=== PATIENT | female | born 1935 | race Caucasian/White ===

== ENCOUNTER 2018-03-20 10:40 | Inpatient (IN) ==
--- NOTE | 2018-03-20 10:55 | Emergency Department Note ---
Disposition Clinical Impression: Altered mental status, UTI (urinary tract infection) Disposition: Admitted As Inpatient Condition: Fair Time of Disposition: 12:40 General Adult HPI - General Stated complaint: AMS, fever Time Seen by Provider: 03/20/18 10:43 Nursing Notes Reviewed: Yes Vital Signs Reviewed: Yes - History of Present Illness HPI Narrative: Ms. Esquivel is a very pleasant 81-year-old female with a past no history of hypertension, hyperlipidemia, anemia, hiatal hernia and non-oxygen dependent COPD who presents to the [facility] emergency department with chief complaint of altered mental status. Patient was seen on Wednesday by Dr. Del Cid who performed an upper endoscopy after she was found to have black tarry stools. Of note, there was noted to have a large hiatal hernia. No other acute process. In addition patient does have a history of upper GI bleed roughly 2 and half years ago. Patient is not on any blood thinners at this time. Family is present at bedside and reported that roughly one or 2 days after this procedure she started becoming progressively confused. Patient reports that starting Wednesday or she started having lower abdominal pain that was intermittent in nature as well as some mild diarrhea. However, today she reports complete resolution of her abdominal pain. Family reports that the last 2 days she has had an elevated fever 101-102. She has been taking Tylenol for this complaint. No recent sick contacts. She denies any other systemic symptoms such as chest pain, shortness of breath, palpitations, dysuria or gross to nocturia. She denies any current melena or hematochezia. No other complaint at this time. - Related Data Home Medications Medication Instructions Recorded Confirmed Cyclobenzaprine [Flexeril] 10 mg PO DAILY 04/01/16 03/15/18 Esomeprazole Magnesium [Nexium] 40 mg PO DAILY PRN 04/01/16 03/15/18 Famotidine [Pepcid] 20 mg PO DAILY 04/01/16 03/15/18 Furosemide [Lasix] 20 mg PO DAILY PRN 04/01/16 03/15/18 Gabapentin [Neurontin] 300 mg PO HS 04/01/16 03/15/18 HYDROcodone/Acet 5/325 mg [[place] 1 tab PO TID PRN 04/01/16 03/15/18 5-325 mg] Metoprolol Succinate 50 mg PO DAILY 04/01/16 03/15/18 Sertraline [Zoloft] 100 mg PO DAILY 04/01/16 03/15/18 Sucralfate [Carafate] 1 gm PO BID 04/01/16 03/15/18 Albuterol Neb [Proventil Neb] 3 ml IH Q4HR 03/15/18 03/15/18 Albuterol Sulfate [Proair Hfa] 2 puff IH Q4HR 03/15/18 03/15/18 Ferrous Sulfate [Ferrous Sulfate] 325 mg PO TID 03/15/18 03/15/18 Fluticasone/Salmeterol [Advair 1 puff IH DAILY 03/15/18 03/15/18 500-50 Diskus] Levothyroxine Sodium 50 mcg PO DAILY 03/15/18 03/15/18 [Levothyroxine Sodium] Previous Rx's Medication Instructions Recorded Meclizine [Antivert] 25 mg PO TID PRN #15 tablet 05/03/17 Allergies Allergy/AdvReac Type Severity Reaction Status Date / Time sulfamethoxazole Allergy Hives Verified 03/20/18 12:10 [From Bactrim] trimethoprim [From Bactrim] Allergy Hives Verified 03/20/18 12:10 Review of Systems: As Per HPI Past Medical History - Past Medical History Medical history: Reports: COPD, coronary artery disease, GERD, GI bleed, hyperlipidemia, hypertension, osteoporosis, thyroid disease, TIA Surgical history: Reports: appendectomy, cataract, cholecystectomy, hysterectomy , orthopedic, other Psychiatric history: Reports: depression SANDSTONE SPLITTER history: Reports: no SANDSTONE SPLITTER history - Social History Smoking Status: Never smoker Smokeless Tobacco Status: No Alcohol use: Reports: none Drug use: Reports: none Physical Exam CONSTITUTIONAL: Alert and conversant, oreinted to place, person. Not able to relate the year. Knows the president. HEAD: Normocephalic; atraumatic. EYES: EOMI, no scleral icterus, no drainage, no conjunctival injection Oropharynx: pink/moist RESP: NRD without use of accessory musculature, CTA b/l with no wheezes/rales/ rhonchi CARD: Regular rhythm, without murmurs, rubs, or gallop ABD: grossly normal, soft, non-tender, no guarding/distention/rigidity SKIN: normal appearance, no pallor/diaphoresis,mottling,jaundice,cyanosis EXT: DP/Rad pulses 2+ and symmetrical; no lateralizing edema; no other lesions seen PSYCH: appropriate mood/affect Course Course Narrative: Patient was seen and examined at bedside. Vital signs reviewed and showed temperature of 101.1 followed by 99.1. Elevated heart rate of 106. SIRS criteria was met. Physical examination demonstrates a pleasantly confused individual that is oriented to her name and place but was unable to currently state that current year and president., States that there is no history of this confusion previously. Patient is ambulatory at home. Abdominal examination was benign and the rest of the physical examination was unremarkable. Stool Hemoccult was negative. We will begin workup with urinalysis, CBC, CMP, chest x-ray, CT of the head, twelve-lead EKG. Will obtain IV access and blood cultures. Patient will be given 2 L IV fluid as well as IV antibiotics with Zosyn and vancomycin. Patient appears comfortable and nontoxic appearing at this time. She is hemodynamically stable. Disposition pending. 1220: Patient was found to be positive for UTI. CBC and CMP was unremarkable. Chest x-ray and CT of the head were unremarkable. The lead EKG shows no acute findings. Given this patient's altered mental status and UTI would recommend hospital admission for further treatment and evaluation. Hospitalist will be paged. 1255: Spoke with hospitalist, Dr. Bland who accepted patient for UTI and altered mental status. No further recognitions for hospital team. This disposition and plan were discussed with patient and family understand and agree. All further questions and concerns were addressed. Vital Signs Temperature 99.1 F 03/20/18 10:53 Pulse Rate 107 03/20/18 10:53 Respiratory Rate 18 03/20/18 10:53 Blood Pressure 155/66 03/20/18 10:53 O2 Sat by Pulse Oximetry 90 03/20/18 10:53 Temperature 99.4 F 03/20/18 12:49 Pulse Rate 84 03/20/18 12:49 Respiratory Rate 18 03/20/18 12:49 Blood Pressure 116/81 03/20/18 12:49 O2 Sat by Pulse Oximetry 96 03/20/18 12:49 Oxygen Delivery Oxygen Delivery Room Air Medical Decision Making - Medical Records Medical records reviewed: Yes I reviewed the patient's medical records. - Lab Data Lab results reviewed: Yes I reviewed the patient's lab results. Result diagrams: 03/20/18 11:39 03/20/18 11:39 Lab Results 03/20/18 03/20/18 03/20/18 Range/Units 11:19 11:39 11:39 WBC 7.8 (4.3-11.1) K/mcL RBC 4.93 (3.82-4.97) M/mcL Hgb 12.6 (11.5-15.4) g/dL Hct 41.3 (35.3-44.9) % MCV 83.8 (83.0-100.0) fL MCH 25.6 L (28.0-33.3) pg MCHC 30.5 L (31.6-35.5) g/dL RDW 21.7 H (11.5-14.5) % Plt Count 214 (140-400) K/mcL MPV 9.6 (9.4-12.4) fL Immature Gran % 0.3 (0-4) % Seg Neutrophils % 91.5 % Lymphocytes % 3.0 % Monocytes % 4.6 % Eosinophils % 0.1 % Basophils % 0.5 % Neutrophils # 7.1 (1.6-8.9) K/mcL Lymphocytes # 0.2 L (0.6-4.6) K/mcL Monocytes # 0.4 (0.0-1.3) K/mcL Eosinophils # 0.0 (0.0-0.6) K/mcL Basophils # 0.0 (0.0-0.2) K/mcL Platelet Estimate Normal (Normal) PT 12.5 H (9.4-12.1) Seconds INR 1.2 APTT 23.2 L (26.0-36.0) Seconds Sodium (136-145) mEq/L Potassium (3.5-5.1) mEq/L Chloride (98-107) mEq/L Carbon Dioxide (23-29) mEq/L BUN (8-23) mg/dL Creatinine (0.60-1.20) mg/dL Est GFR ( Amer) (> 60) Est GFR (Non-Af Amer) (> 60) BUN/Creatinine Ratio (6-26) Glucose (70-105) mg/dL Calculated Osmolality (280-300) Lactic Acid (0.5-2.2) mmol/L Calcium (8.6-10.3) mg/dL Total Bilirubin (0.3-1.0) mg/dL Direct Bilirubin (0.0-0.2) mg/dL Indirect Bilirubin (0.0-1.2) mg/dL AST (13-39) Units/L ALT (7-52) Units/L Alkaline Phosphatase (34-104) Units/L Ammonia (16-53) mcmol/L Troponin I (< 0.04) ng/mL Serum Total Protein (6.4-8.9) g/dL Albumin (3.5-5.7) g/dL Globulin (2.4-3.5) g/dL Albumin/Globulin Ratio (1.1-2.2) Urine Color Yellow (Yellow) Urine Clarity Clear (Clear) Urine pH 5.5 (5.0-8.0) pH Units Ur Specific [place] 1.015 (1.010-1.025) Urine Protein 100 H (Neg-Trace) mg/dL Urine Glucose (UA) Normal (Normal) mg/dL Urine Ketones Negative (Negative) mg/dL Urine Blood Moderate H (Negative) Urine Nitrite Positive A (Negative) Urine Bilirubin Negative (Negative) Urine Urobilinogen Normal (Normal) mg/dL Ur Leukocyte Esterase Small H (Negative) Urine Microscopic RBC 0-3 (0-3) per hpf Urine Microscopic WBC 15-30 H (0-3) per hpf Ur Squamous Epith Cells Few (None-Few) per lpf [place] Biurate Crystals Present Urine Bacteria Many H (None-Few) per hpf Ur Culture Indicated? YES A (NO) 03/20/18 03/20/18 03/20/18 Range/Units 11:39 11:39 11:44 WBC (4.3-11.1) K/mcL RBC (3.82-4.97) M/mcL Hgb (11.5-15.4) g/dL Hct (35.3-44.9) % MCV (83.0-100.0) fL MCH (28.0-33.3) pg MCHC (31.6-35.5) g/dL RDW (11.5-14.5) % Plt Count (140-400) K/mcL MPV (9.4-12.4) fL Immature Gran % (0-4) % Seg Neutrophils % % Lymphocytes % % Monocytes % % Eosinophils % % Basophils % % Neutrophils # (1.6-8.9) K/mcL Lymphocytes # (0.6-4.6) K/mcL Monocytes # (0.0-1.3) K/mcL Eosinophils # (0.0-0.6) K/mcL Basophils # (0.0-0.2) K/mcL Platelet Estimate (Normal) PT (9.4-12.1) Seconds INR APTT (26.0-36.0) Seconds Sodium 134 L (136-145) mEq/L Potassium 4.3 (3.5-5.1) mEq/L Chloride 99 (98-107) mEq/L Carbon Dioxide 27 (23-29) mEq/L BUN 13 (8-23) mg/dL Creatinine 1.13 (0.60-1.20) mg/dL Est GFR ( Amer) 56 L (> 60) Est GFR (Non-Af Amer) 46 L (> 60) BUN/Creatinine Ratio 12 (6-26) Glucose 111 H (70-105) mg/dL Calculated Osmolality 279 L (280-300) Lactic Acid 0.9 (0.5-2.2) mmol/L Calcium 9.4 (8.6-10.3) mg/dL Total Bilirubin 0.9 (0.3-1.0) mg/dL Direct Bilirubin 0.3 H (0.0-0.2) mg/dL Indirect Bilirubin 0.6 (0.0-1.2) mg/dL AST 17 (13-39) Units/L ALT 9 (7-52) Units/L Alkaline Phosphatase 69 (34-104) Units/L Ammonia 26 (16-53) mcmol/L Troponin I < 0.03 (< 0.04) ng/mL Serum Total Protein 7.4 (6.4-8.9) g/dL Albumin 4.2 (3.5-5.7) g/dL Globulin 3.2 (2.4-3.5) g/dL Albumin/Globulin Ratio 1.3 (1.1-2.2) Urine Color (Yellow) Urine Clarity (Clear) Urine pH (5.0-8.0) pH Units Ur Specific [place] (1.010-1.025) Urine Protein (Neg-Trace) mg/dL Urine Glucose (UA) (Normal) mg/dL Urine Ketones (Negative) mg/dL Urine Blood (Negative) Urine Nitrite (Negative) Urine Bilirubin (Negative) Urine Urobilinogen (Normal) mg/dL Ur Leukocyte Esterase (Negative) Urine Microscopic RBC (0-3) per hpf Urine Microscopic WBC (0-3) per hpf Ur Squamous Epith Cells (None-Few) per lpf [place] Biurate Crystals Urine Bacteria (None-Few) per hpf Ur Culture Indicated? (NO) - Radiology Data Radiology results reviewed: Yes I reviewed the patient's radiology results. Chest X-Ray 03/20/18 10:56 IMPRESSION: No acute abnormality. D/ / 03/20/2018 11:50:52 Carlos Sanchez MD / [place] Interpreting Provider: Carlos Sanchez MD Head CT 03/20/18 10:56 IMPRESSION: No acute intracranial abnormality. D/ / 03/20/2018 12:06:48 Jeb Medina MD / [place] Interpreting Provider: Jeb Medina MD - EKG Data EKG #1 EKG attestation: Yes I reviewed and interpreted this EKG. EKG results narrative: Heart rate 102, IA 140, QRS 74 and QTC 368 consistent with sinus tachycardia. There are no new ischemic changes. This was compared to previous was performed on 08/10/2017
[2018-03-20] MEDS ORDERED: Piperacillin/Tazobactam 3.375 GM in 0.9 % Sodium Chloride Mini Bag 100 ML IVPB ONE (11:04)
[2018-03-20 11:36] LABS: Bilirubin,Urine Negative (Negative); Blood,Urine Moderate (Negative); Clarity,Urine Clear (Clear); Color,Urine Yellow (Yellow); Glucose,Urine (UA) Normal (Normal); Ketones,Urine Negative (Negative); Leukocyte Esterase,Urine Small (Negative); Nitrite,Urine Positive (Negative); PH,Urine 5.5 pH Units (5.0-8.0); Protein,Urine 100 mg/dL (Neg-Trace); Specific Gravity,Urine 1.015 (1.010-1.025); Urobilinogen,Urine Normal (Normal)
[2018-03-20] MEDS: 0.9 % Sodium Chloride 1,000 ML IVC SCH ×3 (11:47→17:02)
[2018-03-20 11:49] LABS: Bacteria,Urine Many per hpf (None-Few); RBC,Urine 0-3 per hpf (0-3); Squamous Epithelial Cell,Urine Few per lpf (None-Few); WBC,Urine 15-30 per hpf (0-3)
[2018-03-20 11:52] LABS: Basophils % 0.5 %; Eosinophils % 0.1 %; Hematocrit 41.3 % (35.3-44.9); Hemoglobin 12.6 g/dL (11.5-15.4); Immature Granulocytes % 0.3 % (0-4); Lymphocytes # 0.2 K/mcL (0.6-4.6); Mean Corpuscular HGB Conc 30.5 g/dL (31.6-35.5); Mean Corpuscular Hemoglobin 25.6 pg (28.0-33.3); Mean Corpuscular Volume 83.8 fL (83.0-100.0); Mean Platelet Volume 9.6 fL (9.4-12.4); Monocytes # 0.4 K/mcL (0.0-1.3); Monocytes % 4.6 %; Neutrophils # 7.1 K/mcL (1.6-8.9); Platelet Count 214 K/mcL (140-400); Red Blood Count 4.93 M/mcL (3.82-4.97); Red Cell Distribution Width 21.7 % (11.5-14.5); Segmented Neutrophils % 91.5 %
[2018-03-20 11:58] LABS: INR 1.2; Prothrombin Time 12.5 Seconds (9.4-12.1)
[2018-03-20 12:00] LABS: Activated Partial Thrombo Time 23.2 Seconds (26.0-36.0)
--- NOTE | 2018-03-20 12:00 | Emergency Department Note ---
Disposition Clinical Impression: Altered mental status, UTI (urinary tract infection) Disposition: Admitted As Inpatient Condition: Fair Referrals: Mihai Medrano MD [Primary Care Provider] - Time of Disposition: 12:58 General Adult HPI - General Chief complaint: ED Altered Mental Status Stated complaint: AMS, fever Time Seen by Provider: 03/20/18 10:43 Source: patient, family Limitations: altered mental status - History of Present Illness Pain Scale: 0 - Related Data Home Medications Medication Instructions Recorded Confirmed Cyclobenzaprine [Flexeril] 10 mg PO DAILY 04/01/16 03/15/18 Esomeprazole Magnesium [Nexium] 40 mg PO DAILY PRN 04/01/16 03/15/18 Famotidine [Pepcid] 20 mg PO DAILY 04/01/16 03/15/18 Furosemide [Lasix] 20 mg PO DAILY PRN 04/01/16 03/15/18 Gabapentin [Neurontin] 300 mg PO HS 04/01/16 03/15/18 HYDROcodone/Acet 5/325 mg [[place] 1 tab PO TID PRN 04/01/16 03/15/18 5-325 mg] Metoprolol Succinate 50 mg PO DAILY 04/01/16 03/15/18 Sertraline [Zoloft] 100 mg PO DAILY 04/01/16 03/15/18 Sucralfate [Carafate] 1 gm PO BID 04/01/16 03/15/18 Albuterol Neb [Proventil Neb] 3 ml IH Q4HR 03/15/18 03/15/18 Albuterol Sulfate [Proair Hfa] 2 puff IH Q4HR 03/15/18 03/15/18 Ferrous Sulfate [Ferrous Sulfate] 325 mg PO TID 03/15/18 03/15/18 Fluticasone/Salmeterol [Advair 1 puff IH DAILY 03/15/18 03/15/18 500-50 Diskus] Levothyroxine Sodium 50 mcg PO DAILY 03/15/18 03/15/18 [Levothyroxine Sodium] Previous Rx's Medication Instructions Recorded Meclizine [Antivert] 25 mg PO TID PRN #15 tablet 05/03/17 Allergies Allergy/AdvReac Type Severity Reaction Status Date / Time sulfamethoxazole Allergy Hives Verified 03/20/18 12:10 [From Bactrim] trimethoprim [From Bactrim] Allergy Hives Verified 03/20/18 12:10 All systems ED: reviewed and negative except as stated. 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 SUPERVISOR history - Social History Smoking Status: Never smoker Smokeless Tobacco Status: No Alcohol use: Reports: none Drug use: Reports: none Physical Exam - General Limitations: altered mental status General appearance: alert, in no apparent distress Course Vital Signs Temperature 99.1 F 03/20/18 10:53 Pulse Rate 107 03/20/18 10:53 Respiratory Rate 18 03/20/18 10:53 Blood Pressure 155/66 03/20/18 10:53 O2 Sat by Pulse Oximetry 90 03/20/18 10:53 Temperature 99.1 F 03/20/18 11:18 Pulse Rate 107 03/20/18 10:53 Respiratory Rate 18 03/20/18 10:53 Blood Pressure 155/66 03/20/18 10:53 O2 Sat by Pulse Oximetry 90 03/20/18 10:53 Oxygen Delivery Oxygen Delivery Room Air Medical Decision Making - Lab Data Result diagrams: 03/20/18 11:39 03/20/18 11:39 Lab Results 03/20/18 03/20/18 03/20/18 Range/Units 11:19 11:39 11:39 WBC 7.8 (4.3-11.1) K/mcL RBC 4.93 (3.82-4.97) M/mcL Hgb 12.6 (11.5-15.4) g/dL Hct 41.3 (35.3-44.9) % MCV 83.8 (83.0-100.0) fL MCH 25.6 L (28.0-33.3) pg MCHC 30.5 L (31.6-35.5) g/dL RDW 21.7 H (11.5-14.5) % Plt Count 214 (140-400) K/mcL MPV 9.6 (9.4-12.4) fL Immature Gran % 0.3 (0-4) % Seg Neutrophils % 91.5 % Lymphocytes % 3.0 % Monocytes % 4.6 % Eosinophils % 0.1 % Basophils % 0.5 % Neutrophils # 7.1 (1.6-8.9) K/mcL Lymphocytes # 0.2 L (0.6-4.6) K/mcL Monocytes # 0.4 (0.0-1.3) K/mcL Eosinophils # 0.0 (0.0-0.6) K/mcL Basophils # 0.0 (0.0-0.2) K/mcL Platelet Estimate Normal (Normal) PT 12.5 H (9.4-12.1) Seconds INR 1.2 APTT 23.2 L (26.0-36.0) Seconds Sodium (136-145) mEq/L Potassium (3.5-5.1) mEq/L Chloride (98-107) mEq/L Carbon Dioxide (23-29) mEq/L BUN (8-23) mg/dL Creatinine (0.60-1.20) mg/dL Est GFR ( Amer) (> 60) Est GFR (Non-Af Amer) (> 60) BUN/Creatinine Ratio (6-26) Glucose (70-105) mg/dL Calculated Osmolality (280-300) Lactic Acid (0.5-2.2) mmol/L Calcium (8.6-10.3) mg/dL Total Bilirubin (0.3-1.0) mg/dL Direct Bilirubin (0.0-0.2) mg/dL Indirect Bilirubin (0.0-1.2) mg/dL AST (13-39) Units/L ALT (7-52) Units/L Alkaline Phosphatase (34-104) Units/L Ammonia (16-53) mcmol/L Troponin I (< 0.04) ng/mL Serum Total Protein (6.4-8.9) g/dL Albumin (3.5-5.7) g/dL Globulin (2.4-3.5) g/dL Albumin/Globulin Ratio (1.1-2.2) Urine Color Yellow (Yellow) Urine Clarity Clear (Clear) Urine pH 5.5 (5.0-8.0) pH Units Ur Specific [place] 1.015 (1.010-1.025) Urine Protein 100 H (Neg-Trace) mg/dL Urine Glucose (UA) Normal (Normal) mg/dL Urine Ketones Negative (Negative) mg/dL Urine Blood Moderate H (Negative) Urine Nitrite Positive A (Negative) Urine Bilirubin Negative (Negative) Urine Urobilinogen Normal (Normal) mg/dL Ur Leukocyte Esterase Small H (Negative) Urine Microscopic RBC 0-3 (0-3) per hpf Urine Microscopic WBC 15-30 H (0-3) per hpf Ur Squamous Epith Cells Few (None-Few) per lpf [place] Biurate Crystals Present Urine Bacteria Many H (None-Few) per hpf Ur Culture Indicated? YES A (NO) 03/20/18 03/20/18 03/20/18 Range/Units 11:39 11:39 11:44 WBC (4.3-11.1) K/mcL RBC (3.82-4.97) M/mcL Hgb (11.5-15.4) g/dL Hct (35.3-44.9) % MCV (83.0-100.0) fL MCH (28.0-33.3) pg MCHC (31.6-35.5) g/dL RDW (11.5-14.5) % Plt Count (140-400) K/mcL MPV (9.4-12.4) fL Immature Gran % (0-4) % Seg Neutrophils % % Lymphocytes % % Monocytes % % Eosinophils % % Basophils % % Neutrophils # (1.6-8.9) K/mcL Lymphocytes # (0.6-4.6) K/mcL Monocytes # (0.0-1.3) K/mcL Eosinophils # (0.0-0.6) K/mcL Basophils # (0.0-0.2) K/mcL Platelet Estimate (Normal) PT (9.4-12.1) Seconds INR APTT (26.0-36.0) Seconds Sodium 134 L (136-145) mEq/L Potassium 4.3 (3.5-5.1) mEq/L Chloride 99 (98-107) mEq/L Carbon Dioxide 27 (23-29) mEq/L BUN 13 (8-23) mg/dL Creatinine 1.13 (0.60-1.20) mg/dL Est GFR ( Amer) 56 L (> 60) Est GFR (Non-Af Amer) 46 L (> 60) BUN/Creatinine Ratio 12 (6-26) Glucose 111 H (70-105) mg/dL Calculated Osmolality 279 L (280-300) Lactic Acid 0.9 (0.5-2.2) mmol/L Calcium 9.4 (8.6-10.3) mg/dL Total Bilirubin 0.9 (0.3-1.0) mg/dL Direct Bilirubin 0.3 H (0.0-0.2) mg/dL Indirect Bilirubin 0.6 (0.0-1.2) mg/dL AST 17 (13-39) Units/L ALT 9 (7-52) Units/L Alkaline Phosphatase 69 (34-104) Units/L Ammonia 26 (16-53) mcmol/L Troponin I < 0.03 (< 0.04) ng/mL Serum Total Protein 7.4 (6.4-8.9) g/dL Albumin 4.2 (3.5-5.7) g/dL Globulin 3.2 (2.4-3.5) g/dL Albumin/Globulin Ratio 1.3 (1.1-2.2) Urine Color (Yellow) Urine Clarity (Clear) Urine pH (5.0-8.0) pH Units Ur Specific [place] (1.010-1.025) Urine Protein (Neg-Trace) mg/dL Urine Glucose (UA) (Normal) mg/dL Urine Ketones (Negative) mg/dL Urine Blood (Negative) Urine Nitrite (Negative) Urine Bilirubin (Negative) Urine Urobilinogen (Normal) mg/dL Ur Leukocyte Esterase (Negative) Urine Microscopic RBC (0-3) per hpf Urine Microscopic WBC (0-3) per hpf Ur Squamous Epith Cells (None-Few) per lpf [place] Biurate Crystals Urine Bacteria (None-Few) per hpf Ur Culture Indicated? (NO) Attestation Statement - Attestation Attestation: I, Cristian Love DO, examined this patient [id number] and my medical decision-making was reviewed with Juan Limon PGY-1, Resident Physician. I agree with the documented findings, disposition and treatment plan as described except to the extent set forth below. Please see my progress notes for details. 83-year-old female presents to emergency room with complaint of generalized malaise and weakness. Patient had an upper endoscopy completed with. Since then she has had persistently worsening symptoms of weakness nausea and intermittent vomiting. Patient denies any trauma or illness. Patient has no other new medications or medical illnesses. She has not relatively controversial has not fallen or injured herself. Vital signs on presentation were concerning for possible temperature. Her heart rate was normal her blood pressure is normal. Patient is awake and answering questions. Family says that she is acting appropriately but she just has not been able to take care of herself as well as she typically did in the past. Patient is concerning for possible infectious etiology considering she has had recent manipulation as well as the generalized malaise patient will be worked up for septic-like presentation including chest x-ray EKG lab screening CBC chemistry troponin as well as blood cultures and urinalysis. Patient's abdomen is benign at this time. CT that also be ordered secondary to intermittent confusion. Patient otherwise clinically stable we will continue monitor his fluid resuscitation started. Clinically she does not meet any acute signs of sepsis at this point consider do not have a focal source. Physical exam is otherwise unremarkable. Lungs are clear heart is regular abdomen is soft. See detailed documentation of the physical exam, medical intervention, medical decision-making and disposition in the resident physician's note. No critical care by the patient' s treatment course at this time. Antibiotics are ordered at this point. 1225 Patient found to have urinary tract infection. CT imaging of the head is unremarkable. Chest x-ray stable. Patient will be started on Vanco and Zosyn prior to you the results of the urinalysis. There is still concerned because the cough and discomfort for other pulmonary related etiology. Patient is clinically stable. She will be admitted for the confusion and urinary tract infection at this point. Otherwise she has no acute abnormalities. Patient was discussed with the hospitalist. At no other recommendations this time. Antibiotic regimen was restarted. They will de-escalate antibiotic regimen at this point. Patient is otherwise clinically stable no other acute pathology noted
[2018-03-20 12:26] LABS: Alanine Aminotransferase 9 Units/L (7-52); Albumin 4.2 g/dL (3.5-5.7); Albumin/Globulin Ratio 1.3 (1.1-2.2); Alkaline Phosphatase 69 Units/L (34-104); Aspartate Amino Transferase 17 Units/L (13-39); BUN/Creatinine Ratio 12 (6-26); Bilirubin,Direct 0.3 mg/dL (0.0-0.2); Bilirubin,Indirect 0.6 mg/dL (0.0-1.2); Bilirubin,Total 0.9 mg/dL (0.3-1.0); Blood Urea Nitrogen 13 mg/dL (8-23); Calcium 9.4 mg/dL (8.6-10.3); Carbon Dioxide 27 mEq/L (23-29); Chloride 99 mEq/L (98-107); Globulin 3.2 g/dL (2.4-3.5); Glucose 111 mg/dL (70-105); Osmolality,Calculated 279 (280-300); Potassium 4.3 mEq/L (3.5-5.1); Sodium 134 mEq/L (136-145); Total Protein 7.4 g/dL (6.4-8.9); Troponin I < 0.03 ng/mL (< 0.04); eGFR For African Americans 56 (> 60); eGFR For Non-African Americans 46 (> 60)
[2018-03-20 12:28] LABS: Platelet Estimate Normal (Normal)
[2018-03-20] MEDS ORDERED: Naloxone 0.4 MG/ML INJ IVP PRN (14:13)
[2018-03-20] MEDS ORDERED: *HR* HYDROcodone/Acet 5/325 mg TABLET PO PRN (14:19)
[2018-03-20] MEDS ORDERED: Furosemide 20 MG TABLET PO PRN (14:19)
--- NOTE | 2018-03-20 14:39 | Internal Med History&Physical ---
<AndrewshelliechloeViktor duque - Last Filed: 03/20/18 15:11> Date of Encounter: 03/20/18 Time of Encounter: 13:45 Internal Medicine - H&P: HPI Chief complaint: AMS, Fever, Abdominal pain Admitted From: Emergency Dept Plans for Post Hospital Care: Home History of present illness: Ms. Esquivel is a 83 year old female w/PMH of COPD, CAD, GERD, GI bleed, HTN, osteoporosis, thyroid disease, and TIA approximately 10 years ago presents from the ED with chief complaint of fever, abdominal pain, and altered mental status. Patient reports she had a fever 102.5F yesterday with nausea, vomiting , diarrhea, abdominal pain, and right flank pain. Pt. also reports hx of GI bleed w/upper endoscopy done on Wednesday after report of melanotic stools. Not on anticoagulation. Pts. family reports she is usually hypotensive but has been hypertensive over the past month. Pt. reports SOB, cough, and difficulty w/ ambulation but denies chills, changes in vision, headache, chest pain, palpitations, unusual bleeding, constipation, dizziness, lightheadedness, pre- syncope, or syncope. Past Med Surg Social Fam HX - Past Medical History Source: patient, old records reviewed, obtained from family Medical history: COPD, coronary artery disease, GERD, GI bleed, hyperlipidemia, hypertension, osteoporosis, thyroid disease, TIA Psychiatric history: depression - Past Surgical History Surgical History: appendectomy, cataract, cholecystectomy, hysterectomy, orthopedic, other - Social History Smoking Status: Former smoker Packs per day: 2.5 PPD - Reports quitting 40 years ago Smokeless Tobacco Status: No Alcohol use: none Drug use: none Current living situation: Assisted Living Activity Level: Uses cane/walker Recent Out of Country Travel Within the Last 8 Weeks: No Exposure or Possible Exposure to Illness During Travel: No - Family History Father History Unknown: Yes Race: Family Member Ethnicity: Non- Living Status: Age at : 65 Cause of : PA Hx Family Cardiac Disorders: Yes (PA) Hx Family Endocrine Disorder: Yes (DM) Mother Race: Family Member Ethnicity: Non- Living Status: Age at : 72 Cause of : Brain/Lung cancer Hx Family Cancer: Yes (Lung/Brain) Brother Race: Family Member Ethnicity: Non- Living Status: Age at : 53 Cause of : CHF Hx Family Cardiac Disorders: Yes (CHF) Sister Race: Family Member Ethnicity: Non- Living Status: Age at : 73 Cause of : PA Hx Family Cardiac Disorders: Yes (PA, CVA) Internal Medicine - H&P: Meds Cyclobenzaprine [Flexeril] 10 mg PO DAILY 04/01/16 [History] Esomeprazole Magnesium [Nexium] 40 mg PO DAILY PRN 04/01/16 [History] Famotidine [Pepcid] 20 mg PO DAILY 04/01/16 [History] Furosemide [Lasix] 20 mg PO DAILY PRN 04/01/16 [History] Gabapentin [Neurontin] 300 mg PO HS 04/01/16 [History] HYDROcodone/Acet 5/325 mg [[place] 5-325 mg] 1 tab PO TID PRN 04/01/16 [History] Metoprolol Succinate 50 mg PO DAILY 04/01/16 [History] Sertraline [Zoloft] 100 mg PO DAILY 04/01/16 [History] Sucralfate [Carafate] 1 gm PO BID 04/01/16 [History] Meclizine [Antivert] 25 mg PO TID PRN #15 tablet 05/03/17 [Rx] Albuterol Neb [Proventil Neb] 3 ml IH Q4HR 03/15/18 [History] Albuterol Sulfate [Proair Hfa] 2 puff IH Q4HR 03/15/18 [History] Ferrous Sulfate [Ferrous Sulfate] 325 mg PO TID 03/15/18 [History] Fluticasone/Salmeterol [Advair 500-50 Diskus] 1 puff IH DAILY 03/15/18 [History] Levothyroxine Sodium [Levothyroxine Sodium] 50 mcg PO DAILY 03/15/18 [History] 3 Allergy/AdvReac Type Severity Reaction Status Date / Time sulfamethoxazole Allergy Hives Verified 03/20/18 12:10 [From Bactrim] trimethoprim [From Bactrim] Allergy Hives Verified 03/20/18 12:10 All Systems PM: A 10-system review of systems was performed and is negative for pertinent findings except as documented above in the HPI. - Constitutional Constitutional: as per HPI, fever(s) (102.5F yesterday), weakness, no chills, no night sweats - EENT Eyes: no change in vision, no discharge, no pain, no photophobia Ears: no ear discharge, no ear pain, no tinnitus Nose, mouth and throat: no dysphagia, no nasal discharge, no neck pain, no sore throat - Breasts Breasts: as per HPI - Cardiovascular Cardiovascular ROS IM: as per HPI, dyspnea, dyspnea on exertion, no chest pain, no diaphoresis, no lightheadedness, no palpitations, no syncope - Respiratory Respiratory: as per HPI, cough, dyspnea, dyspnea on exertion, no wheezing, no excessive phlegm production - Gastrointestinal Gastrointestinal: as per HPI, abdominal pain, diarrhea, melena (W/i past several weeks), nausea, vomiting, no hematemesis, no hematochezia - Genitourinary Genitourinary: as per HPI, flank pain (Right), no change in urinary stream, no dysuria, no hematuria Menstruation: as per HPI - Musculoskeletal Musculoskeletal ROS IM: no numbness, no tingling - Integumentary Integumentary IM: no rash, no unusual bruising - Neurological Neurological ROS: as per HPI, weakness, no confusion, no convulsions, no focal weakness, no numbness, no tingling, no tremor(s) - Psychiatric Psychiatric: as per HPI, depression - Endocrine Endocrine IM: as per HPI - Hematologic/Lymphatic Hematologic/Lymphatic: no easy bruising - Allergic/Immunologic Allergic/Immunologic: as per HPI - Constitutional Vitals: Temp Pulse Resp BP Pulse Ox 99.4 F 84 18 116/81 96 03/20/18 12:49 03/20/18 12:49 03/20/18 12:49 03/20/18 12:49 03/20/18 12:49 General appearance: Present: cooperative, A&O X 3, pleasant, no acute distress, answers questions appropriately - Head Head exam: Present: atraumatic, normocephalic - Eye Eye exam: Present: PERRL, conjuntiva pink, sclera anicteric Pupils: Present: PERRL - ENT ENT exam: Present: normal exam - Neck Neck exam general surgery: Present: supple, trachea midline. Absent: lymphadenopathy - Respiratory Respiratory exam: Present: CTAB. Absent: accessory muscle use, rales, rhonchi, wheezes - Cardiovascular Cardiovascular exam: Present: RRR, +S1, +S2. Absent: diastolic murmur, gallop, rubs, systolic murmur - GI/Abdominal GI/Abdominal exam: Present: normal bowel sounds, soft, no peritoneal signs. Absent: distended, tenderness - Rectal Rectal exam: Present: deferred - Additional comments: exam deferred. - Extremities Exam Extremities exam: Present: warm, radial pulses palpable and symmetrical. Absent : calf tenderness, cyanotic, pedal edema - Back Exam Back exam: Present: normal inspection - Neurological Exam Neurological exam: Present: CN II-XII intact, oriented X3, no focal deficits. Absent: pronater drift, facial droop, speech deficit - Psychiatric Psychiatric exam: Present: normal affect, normal mood - Skin Skin exam: Present: dry, intact Internal Med - H&P Results - Labs CBC & Chem 7: 03/20/18 11:39 03/20/18 11:39 - Diagnostic Studies Chest x-ray Additional comments: Impressions Chest X-Ray 03/20/18 10:56 IMPRESSION: No acute abnormality. D/ / 03/20/2018 11:50:52 Carlos Sanchez MD / [place] Interpreting Provider: Carlos Sanchez MD CT scan - head Additional comments: Impressions Head CT 03/20/18 10:56 IMPRESSION: No acute intracranial abnormality. D/ / 03/20/2018 12:06:48 Jeb Medina MD / [place] Interpreting Provider: Jeb Medina MD - Assessment and plan (1) UTI (urinary tract infection) Current Visit: Yes Status: Acute Assessment and plan: Acute UTI. UA today shows positive nitrates, leukocyte esterase, microscopic WBC 15-30, and many urine bacteria. Pt. and family report hx of UTI. Vancomycin and Zosyn administered in the ED. Will DC these and administer IVPB ceftriaxone 1000 mg daily for infection coverage. Monitor I&O and daily weight. Monitor patient for neurologic changes due to AMS. Patient does not currently meet sepsis criteria but will be monitored closely. Continuous cardiac telemetry. Patient uses O2 at night at home. Supplemental O2 with titration and SPO2 monitoring ordered. Patient discussed with Dr. Bland who agrees with plan of care. Pt. is high risk for further morbidity d/t AMS caused by UTI, weakness and risk for falls, N/V/D/F (>102F) over past week, ANNE, hx of GI bleed, and risk factors. Inpatient. Qualifiers: Urinary tract infection type: acute cystitis Hematuria presence: with hematuria Qualified Code(s): N30.01 - Acute cystitis with hematuria (2) Altered mental status Current Visit: Yes Status: Acute Assessment and plan: Acute AMS related to current UTI. Pt. to be monitored closely for neurologic changes. Falls/safety precautions, up with assist, bed rest w/bedside commode w/ assist only. Monitor pt. and f/u labs. Will order sitter if warranted. Qualifiers: Altered mental status type: disorientation Qualified Code(s): R41.0 - Disorientation, unspecified (3) ANNE (acute kidney injury) Current Visit: Yes Status: Acute Assessment and plan: ANNE most likely d/t reduced intake as a result of N/V/D. GFR 46 w/normal creatinine of 1.13 on admission. Pt. has hx of renal dysfunction in past. Received IV fluids in ED. Reports right flank pain. Sodium currently 134 on admission. Will monitor I&O, daily weight, and f/u labs for renal function and resolution of hyponatremia. Retroperitoneal US ordered to assess for renal calculi. (4) Nausea & vomiting Current Visit: Yes Status: Acute Assessment and plan: Acute N/V over the past several days. IVP Zofran 4 mg Q6HR PRN. Monitor I&O. Qualifiers: Vomiting type: unspecified Vomiting Intractability: non-intractable Qualified Code(s): R11.2 - Nausea with vomiting, unspecified (5) Weakness Current Visit: Yes Status: Acute Assessment and plan: Acute on chronic weakness exacerbated by current UTI. Falls/safety precautions, up with assist, bed rest w/bedside commode w/assist only. (6) HTN (hypertension) Current Visit: Yes Status: Chronic Assessment and plan: Hx of chronic HTN. Pt. and family report episodes of hypotension. Monitor pt. and VS. Hydralazine ordered if pt. becomes hypertensive between Metoprolol dosing w/parameters SBP >180 ad/or DBP >110. Qualifiers: Hypertension type: essential hypertension Qualified Code(s): I10 - Essential (primary) hypertension (7) GERD (gastroesophageal reflux disease) Current Visit: Yes Status: Chronic Assessment and plan: Hx of chronic GERD. IVP Zofran 4 mg Q6HR PRN for N/V. IVP Protonix 40 mg BID. Qualifiers: Esophagitis presence: esophagitis presence not specified Qualified Code(s) : K21.9 - Gastro-esophageal reflux disease without esophagitis (8) CAD (coronary artery disease) Current Visit: Yes Status: Chronic Assessment and plan: Hx of CAD. Continuous cardiac telemetry. Continue Metoprolol and monitor pt. for hypotension. Lipid panel in a.m. labs. Pt. denies any cardiac sx at this time. Qualifiers: Coronary Disease-Associated Artery/Lesion type: due to lipid rich plaque Qualified Code(s): I25.10 - Atherosclerotic heart disease of [place] coronary artery without angina pectoris; I25.83 - Coronary atherosclerosis due to lipid rich plaque; I25.83 - Coronary atherosclerosis due to lipid rich plaque; I25.83 - Coronary atherosclerosis due to lipid rich plaque (9) COPD (chronic obstructive pulmonary disease) Current Visit: Yes Status: Chronic Assessment and plan: Hx of COPD. Stable. DuoNebs Q6HR scheduled. Continue pts. inhalers. Supplemental O2 w/titration and SpO2 monitoring. Qualifiers: COPD type: chronic bronchitis Chronic bronchitis type: simple Qualified Code(s): J41.0 - Simple chronic bronchitis (10) Hypothyroid Current Visit: Yes Status: Chronic Assessment and plan: Hx of hypothyroidism. TSH and Free T4 ordered. Continue pts. Synthroid. Qualifiers: Hypothyroidism type: unspecified Qualified Code(s): E03.9 - Hypothyroidism , unspecified (11) History of GI bleed Current Visit: Yes Status: Chronic Assessment and plan: Hx of GI bleeding 2.5 years ago and report of melanotic stools that required upper endoscopy on Wednesday. Monitor pt. for signs of bleeding, H/H, and f/u labs. (12) DVT prophylaxis Current Visit: Yes Status: Acute Assessment and plan: Bilateral SCDs on LEs for DVT prophylaxis d/t hx of GI bleeds requiring recent upper endoscopy. Monitor pt. for signs of bleeding. - Time Spent With Patient Total time spent is greater than 50% in coordination of care (as documented) at patient's floor/unit and/or counseling patient: 25 - 35 minutes <Sherif Bland - Last Filed: 03/20/18 16:12> Date of Encounter: 03/20/18 Internal Medicine - H&P: HPI History of present illness: Ms. Esquivel is a 83 year old female All Systems PM: A 10-system review of systems was performed and is negative for pertinent findings except as documented above in the HPI. - Constitutional Vitals: Temp Pulse Resp BP Pulse Ox 99.8 F H 86 18 115/51 92 03/20/18 14:15 03/20/18 14:15 03/20/18 15:21 03/20/18 14:15 03/20/18 15:21 Internal Med - H&P Results - Labs CBC & Chem 7: 03/20/18 11:39 03/20/18 11:39 - Attending Attestation I saw and examined this patient independently, and my medical decision making was reviewed with KENNEL ATTENDANT on 2017. I agree with the documented findings, assessment and treatment plan as described in the progress note. - Time Spent With Patient Total time spent is greater than 50% in coordination of care (as documented) at patient's floor/unit and/or counseling patient:
[2018-03-20] MEDS ORDERED: Ondansetron 4 MG/2 ML VIAL IVP PRN (14:53)
[2018-03-20] MEDS: cefTRIAXone 1,000 MG in Water for inj. (sterile) 20 ML 10 ML IVP SCH (14:58)
[2018-03-20] MEDS: Ipratropium/Albuterol Neb 3 ML IH SCH ×2 (15:21→21:30)
[2018-03-20] MEDS: Albuterol 2.5 MG/3 ML NEBULIZER IH SCH ×2 (15:24→19:49)
[2018-03-20] MEDS ORDERED: Acetaminophen 325 MG TABLET PO PRN ×2 (15:47→15:48)
[2018-03-20] MEDS ORDERED: Ibuprofen 600 MG TABLET PO PRN (16:28)
[2018-03-20] MEDS ORDERED: Acetaminophen 650 MG RECTAL SUPP RC PRN (16:30)
[2018-03-20] MEDS: Pantoprazole 40 MG VIAL IVP SCH (17:02)
[2018-03-20] MEDS: Sucralfate 1 GM TABLET PO SCH (21:23)
[2018-03-20] MEDS: Gabapentin 300 MG CAPSULE PO SCH (21:23)
[2018-03-21] MEDS: Albuterol 2.5 MG/3 ML NEBULIZER IH SCH ×4 (00:13→10:17)
[2018-03-21] MEDS: Ipratropium/Albuterol Neb 3 ML IH SCH ×4 (03:34→21:20)
[2018-03-21 04:10] LABS: Acinetobacter baumannii by PCR Not Detected (Not Detect); Enterococcus by PCR Not Detected (Not Detect); Staphylococcus aureus by PCR Not Detected (Not Detect); Streptococcus agalactiae(B)PCR Not Detected (Not Detect); Streptococcus by PCR Not Detected (Not Detect); Streptococcus pneumoniae PCR Not Detected (Not Detect); Streptococcus pyogenes (A) PCR Not Detected (Not Detect); blaKPC Carbapenem-Resist Gene Not Detected (Not Detect); mecA Methicillin-Resist Gene Not Detected (Not Detect); vanA/B Vancomycin-Resist Genes Not Detected (Not Detect)
[2018-03-21 04:11] LABS: Candida albicans by PCR Not Detected (Not Detect); Candida glabrata by PCR Not Detected (Not Detect); Candida krusei by PCR Not Detected (Not Detect); Candida parapsilosis by PCR Not Detected (Not Detect); Candida tropicalis by PCR Not Detected (Not Detect); Escherichia coli by PCR ***DETECTED*** (Not Detect); Klebsiella oxytoca by PCR Not Detected (Not Detect); Klebsiella pneumoniae by PCR Not Detected (Not Detect); Pseudomonas aeruginosa by PCR Not Detected (Not Detect); Serratia marcescens by PCR Not Detected (Not Detect)
[2018-03-21 05:26] LABS: Basophils % 0.4 %; Eosinophils % 0.2 %; Hematocrit 33.5 % (35.3-44.9); Immature Granulocytes % 0.4 % (0-4); Lymphocytes # 0.9 K/mcL (0.6-4.6); Lymphocytes % 18.7 %; Mean Corpuscular Hemoglobin 25.3 pg (28.0-33.3); Mean Corpuscular Volume 87.2 fL (83.0-100.0); Mean Platelet Volume 10.1 fL (9.4-12.4); Monocytes # 0.4 K/mcL (0.0-1.3); Monocytes % 7.9 %; Neutrophils # 3.5 K/mcL (1.6-8.9); Platelet Count 161 K/mcL (140-400); Red Blood Count 3.84 M/mcL (3.82-4.97); Red Cell Distribution Width 22.1 % (11.5-14.5); Segmented Neutrophils % 72.4 %
[2018-03-21] MEDS: Pantoprazole 40 MG VIAL IVP SCH ×2 (05:27→16:07)
[2018-03-21] MEDS: 0.9 % Sodium Chloride 1,000 ML IVC SCH (05:27)
[2018-03-21 05:34] LABS: Hemoglobin 9.7 g/dL (11.5-15.4)
[2018-03-21 05:48] LABS: Alanine Aminotransferase 8 Units/L (7-52); Albumin 3.1 g/dL (3.5-5.7); Albumin/Globulin Ratio 1.2 (1.1-2.2); Alkaline Phosphatase 50 Units/L (34-104); Aspartate Amino Transferase 13 Units/L (13-39); BUN/Creatinine Ratio 11 (6-26); Bilirubin,Total 0.4 mg/dL (0.3-1.0); Blood Urea Nitrogen 11 mg/dL (8-23); Calcium 7.9 mg/dL (8.6-10.3); Carbon Dioxide 25 mEq/L (23-29); Chloride 110 mEq/L (98-107); Chol/HDL Ratio 2.7 (0-4.9); Cholesterol 112 mg/dL (< 200); Globulin 2.5 g/dL (2.4-3.5); Glucose 102 mg/dL (70-105); HDL Cholesterol 41 mg/dL (40-59); LDL Cholesterol,Calculated 53 mg/dL (0-99); Magnesium 1.8 mg/dL (1.6-2.6); Osmolality,Calculated 294 (280-300); Potassium 3.2 mEq/L (3.5-5.1); Sodium 142 mEq/L (136-145); Total Protein 5.6 g/dL (6.4-8.9); Triglycerides 89 mg/dL (< 150); eGFR For African Americans > 60 (> 60); eGFR For Non-African Americans 55 (> 60)
[2018-03-21 06:00] LABS: Thyroid Stimulating Hormone 2.301 mcIU/mL (0.340-5.600)
[2018-03-21] MEDS: cefTRIAXone 1,000 MG in Water for inj. (sterile) 20 ML 10 ML IVP SCH (07:47)
[2018-03-21] MEDS: Sucralfate 1 GM TABLET PO SCH ×2 (07:47→19:57)
[2018-03-21] MEDS: Metoprolol XL (24 HR) Succ 50 MG TAB.ER.24H PO SCH (07:47)
[2018-03-21 09:31] LABS: Estimated Average Glucose 103 mg/dl; Hemoglobin A1C 5.2 %
[2018-03-21] MEDS ORDERED: cefTRIAXone 1,000 MG in Water for inj. (sterile) 20 ML 10 ML IVP ONE (09:38)
[2018-03-21] MEDS ORDERED: cefTRIAXone 2,000 MG in Water for inj. (sterile) 20 ML IVP SCH (10:00)
--- NOTE | 2018-03-21 10:02 | Internal Med Progress Note ---
<IsabellaEliezer franco - Last Filed: 03/21/18 14:38> Date of Encounter: 03/21/18 Time of Encounter: 14:38 - Assessment and plan (1) UTI (urinary tract infection) Current Visit: Yes Status: Acute Assessment and plan: - Acute urinary tract infection as demonstrated by urinalysis performed emergency department with leukocyte esterase, WBC, bacteria, nitrites - Blood culture and urine culture so far growing gram-negative rods with PCR showing enterobacter and E.coli in the blood - Pt denies symptoms - Renal US showing no evidence of pyelonephritis. - CT abd pelvis ordered to rule out alternative etiolgies of infection given recent EGD/colonoscopy - Started on rocpein and did receive one dose of vanc/zosyn - Final cultures and sensitivities pending. Plan - Continue rocephin Day #2, however increase dose to 2g Qday given bacteremia. - Continue to monitor for signs of improvement. - Repeat blood cultures tomorrow - De-escalate Abx and possible for sensitivites. Qualifiers: Urinary tract infection type: acute cystitis Hematuria presence: with hematuria Qualified Code(s): N30.01 - Acute cystitis with hematuria (2) ANNE (acute kidney injury) Current Visit: Yes Status: Acute Assessment and plan: - ANNE on admission with a creatinine of 1.13 and GFR of 46 - BUN/creatinine improved to 11/0.97, consistent with baseline - Most likely secondary to prerenal causes and decreased oral intake in the setting of infection and altered mental status - Current receiving normal saline at 75 mL per hour -Tolerating diet - Retroperitoneal ultrasound showing mildly atrophic left kidney without obvious stone, hydronephrosis or acute process Plan - Continue to monitor and avoid nephrotoxic agents - Appears to be at baseline. Continue monitor labs (3) CAD (coronary artery disease) Current Visit: Yes Status: Chronic Assessment and plan: - Asymptomatic - Continue home meds - Okay to discontinue telemetry Qualifiers: Coronary Disease-Associated Artery/Lesion type: due to lipid rich plaque Qualified Code(s): I25.10 - Atherosclerotic heart disease of [place] coronary artery without angina pectoris; I25.83 - Coronary atherosclerosis due to lipid rich plaque; I25.83 - Coronary atherosclerosis due to lipid rich plaque; I25.83 - Coronary atherosclerosis due to lipid rich plaque (4) COPD (chronic obstructive pulmonary disease) Current Visit: Yes Status: Chronic Assessment and plan: - Patient denying any symptoms of shortness of breath - Not in acute exacerbation - Continue home inhalers and oxygen as needed Qualifiers: COPD type: chronic bronchitis Chronic bronchitis type: simple Qualified Code(s): J41.0 - Simple chronic bronchitis (5) GERD (gastroesophageal reflux disease) Current Visit: Yes Status: Chronic Assessment and plan: - Hx of chronic GERD. - IVP Zofran 4 mg Q6HR PRN for N/V. - IVP Protonix 40 mg BID. History of recent possible GI bleed Qualifiers: Esophagitis presence: esophagitis presence not specified Qualified Code(s) : K21.9 - Gastro-esophageal reflux disease without esophagitis (6) Hypothyroid Current Visit: Yes Status: Chronic Assessment and plan: Hx of hypothyroidism. TSH and free T4 within normal limits Continue home Synthroid. Qualifiers: Hypothyroidism type: unspecified Qualified Code(s): E03.9 - Hypothyroidism , unspecified (7) HTN (hypertension) Current Visit: Yes Status: Chronic Assessment and plan: - Well controlled, BP this AM of 121/67 - Continue home meds, hydralazine PRN Qualifiers: Hypertension type: essential hypertension Qualified Code(s): I10 - Essential (primary) hypertension (8) Nausea & vomiting Current Visit: Yes Status: Resolved Assessment and plan: Acute N/V over the past several days. IVP Zofran 4 mg Q6HR PRN. Monitor I&O. likely secondary to infection as above. Qualifiers: Vomiting type: unspecified Vomiting Intractability: non-intractable Qualified Code(s): R11.2 - Nausea with vomiting, unspecified (9) Weakness Current Visit: Yes Status: Acute Assessment and plan: Acute on chronic weakness exacerbated by current UTI. Falls/safety precautions, up with assist, bed rest w/bedside commode w/assist only. PT/OT (10) History of GI bleed Current Visit: Yes Status: Chronic Assessment and plan: - Hx of GI bleeding 2.5 years ago and report of melanotic stools that required upper endoscopy on Wednesday. - Monitor pt. for signs of bleeding, H/H, and f/u labs. - H/H of 9.7/33.5, is decreased from presentation with Hgb of 12.6 - Pt reports black stools but takes iron supplementation. - Pt did receive some fluids for infection as above. Plan - Stool occult ordered. - Will closely monitor with low threshold for transfuse and GI consult. - Daily labs. - Discontinue ibuprofen for pain, replace with tylenol. (11) DVT prophylaxis Current Visit: Yes Status: Acute Assessment and plan: Bilateral SCDs on LEs for DVT prophylaxis d/t hx of GI bleeds requiring recent upper endoscopy. Monitor pt. for signs of bleeding. (12) Acute metabolic encephalopathy Current Visit: Yes Status: Resolved Assessment and plan: - AMS delirium secondary likely to UTI as above. - Resolved, patient back to baseline mental status per herself and family who is present at bedside. - Continue to monitor for signs of deterioration - Treat underlying illness. - Time Spent With Patient Total time spent is greater than 50% in coordination of care (as documented) at patient's floor/unit and/or counseling patient: 25 - 35 minutes - Subjective Interval history: Patient seen and examined at bedside. Patient states that she feels much improved from admission. She is no longer experiencing any complaints of pain, nausea, vomiting, confusion. She states that her pain started in her upper abdomen but has since resolved. She states that she had a fever of 102 at home. Denies any current symptoms of dysuria, frequency, urgency. She does admit to dark stools however admits to taking iron supplementation. - Constitutional Vitals: Temp Pulse Resp BP Pulse Ox 98.2 F 77 16 121/67 97 03/21/18 07:34 03/21/18 07:34 03/21/18 07:34 03/21/18 07:34 03/21/18 07:34 General appearance: Present: cooperative, A&O X 3, pleasant, no acute distress, answers questions appropriately Exam: Gen.: Vitals noted. No acute distress. AAOx3 HEENT: PERRL/EOMI, oropharynx clear, Normocephalic, atraumatic, MMM Cardiac: RRR, no murmur, +S1/S2 Pulmonary: CTA bilaterally, no wheezes, rales or rhonchi, equal chest expansion Abdomen: soft, mildly tender to palpation suprapubically, BS noted, no guarding Back: Nontender throughout. Extremities: no BLE edema, nontender calf, no cyanosis or clubbing Neuro: A&Ox3, moves all extremities, no focal deficits Psych: Appropriate mood and behavior Internal Medicine: Result - Labs CBC & Chem 7: 03/21/18 04:44 03/21/18 04:44 Labs: Short CBC 03/21/18 Range/Units 04:44 WBC 4.8 (4.3-11.1) K/mcL Hgb 9.7 L D (11.5-15.4) g/dL Hct 33.5 L (35.3-44.9) % Plt Count 161 (140-400) K/mcL Neutrophils # 3.5 (1.6-8.9) K/mcL BMP 03/21/18 04:44 Sodium 142 Potassium 3.2 L D Chloride 110 H Carbon Dioxide 25 BUN 11 Creatinine 0.97 Glucose 102 Calcium 7.9 L Liver Function 03/21/18 Range/Units 04:44 Total Bilirubin 0.4 (0.3-1.0) mg/dL AST 13 (13-39) Units/L ALT 8 (7-52) Units/L Alkaline Phosphatase 50 (34-104) Units/L Albumin 3.1 L (3.5-5.7) g/dL - ABG Interpretation ABG results: PT/INR, D-dimer PT 12.5 Seconds (9.4-12.1) H 03/20/18 11:39 Consult Discharge Plan - Plan Referrals: Mihai Medrano MD [Primary Care Provider] - <Jessica Donaldson - Last Filed: 03/21/18 17:33> Date of Encounter: 03/21/18 - Assessment and plan (1) CAD (coronary artery disease) Current Visit: Yes Status: Chronic Qualifiers: Coronary Disease-Associated Artery/Lesion type: due to lipid rich plaque Qualified Code(s): I25.10 - Atherosclerotic heart disease of [place] coronary artery without angina pectoris; I25.83 - Coronary atherosclerosis due to lipid rich plaque; I25.83 - Coronary atherosclerosis due to lipid rich plaque; I25.83 - Coronary atherosclerosis due to lipid rich plaque (2) COPD (chronic obstructive pulmonary disease) Current Visit: Yes Status: Chronic Qualifiers: COPD type: chronic bronchitis Chronic bronchitis type: simple Qualified Code(s): J41.0 - Simple chronic bronchitis (3) GERD (gastroesophageal reflux disease) Current Visit: Yes Status: Chronic Qualifiers: Esophagitis presence: esophagitis presence not specified Qualified Code(s) : K21.9 - Gastro-esophageal reflux disease without esophagitis (4) Hypothyroid Current Visit: Yes Status: Chronic Qualifiers: Hypothyroidism type: unspecified Qualified Code(s): E03.9 - Hypothyroidism , unspecified (5) DVT prophylaxis Current Visit: Yes Status: Acute (6) UTI (urinary tract infection) Current Visit: Yes Status: Acute Qualifiers: Urinary tract infection type: acute cystitis Hematuria presence: with hematuria Qualified Code(s): N30.01 - Acute cystitis with hematuria (7) HTN (hypertension) Current Visit: Yes Status: Chronic Qualifiers: Hypertension type: essential hypertension Qualified Code(s): I10 - Essential (primary) hypertension (8) Nausea & vomiting Current Visit: Yes Status: Resolved Qualifiers: Vomiting type: unspecified Vomiting Intractability: non-intractable Qualified Code(s): R11.2 - Nausea with vomiting, unspecified (9) Weakness Current Visit: Yes Status: Acute (10) History of GI bleed Current Visit: Yes Status: Chronic (11) ANNE (acute kidney injury) Current Visit: Yes Status: Acute (12) Acute metabolic encephalopathy Current Visit: Yes Status: Resolved - Time Spent With Patient Total time spent is greater than 50% in coordination of care (as documented) at patient's floor/unit and/or counseling patient: - Constitutional Vitals: Temp Pulse Resp BP Pulse Ox 99.2 F 94 16 117/62 93 03/21/18 11:10 03/21/18 11:10 03/21/18 16:00 03/21/18 11:10 03/21/18 16:00 Internal Medicine: Result - Labs CBC & Chem 7: 03/21/18 04:44 03/21/18 04:44 Labs: Short CBC 03/21/18 Range/Units 04:44 WBC 4.8 (4.3-11.1) K/mcL Hgb 9.7 L D (11.5-15.4) g/dL Hct 33.5 L (35.3-44.9) % Plt Count 161 (140-400) K/mcL Neutrophils # 3.5 (1.6-8.9) K/mcL BMP 03/21/18 04:44 Sodium 142 Potassium 3.2 L D Chloride 110 H Carbon Dioxide 25 BUN 11 Creatinine 0.97 Glucose 102 Calcium 7.9 L Liver Function 03/21/18 Range/Units 04:44 Total Bilirubin 0.4 (0.3-1.0) mg/dL AST 13 (13-39) Units/L ALT 8 (7-52) Units/L Alkaline Phosphatase 50 (34-104) Units/L Albumin 3.1 L (3.5-5.7) g/dL - ABG Interpretation ABG results: PT/INR, D-dimer PT 12.5 Seconds (9.4-12.1) H 03/20/18 11:39 - Impressions Impressions Retroperitoneum Ultrasound 03/21/18 10:00 IMPRESSION: Mildly atrophic left kidney. No obvious stone, hydronephrosis, or acute process on limited exam. D/ / Vicky Espinoza MD / Vicky Espinoza MD Interpreting Provider: Vicky Espinoza MD Abdomen/Pelvis CT 03/21/18 14:30 IMPRESSION: 1. No acute process demonstrated 2. Large hiatal hernia 3. Colonic diverticulosis 4. Status post cholecystectomy and hysterectomy 5. Trace pleural effusions D/ / Alejandro Dickey MD / Alejandro Dickey MD Interpreting Provider: Alejandro Dickey MD - Attending Attestation I performed a history and physical examination of the patient and discussed his/ her management with the resident. I reviewed the residents note and agree with the documented findings and plan of care.
[2018-03-21] MEDS: Budesonide/Formoterol 160/4.5 MDI IH SCH ×2 (10:17→21:20)
[2018-03-21] MEDS ORDERED: Albuterol 2.5 MG/3 ML NEBULIZER IH PRN (13:54)
[2018-03-21] MEDS ORDERED: *HR* HYDROcodone/Acet 5/325 mg TABLET PO PRN (13:57)
--- NOTE | 2018-03-21 18:56 | Electrocardiograph Report ---
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
[2018-03-21] MEDS: Gabapentin 300 MG CAPSULE PO SCH (19:57)
[2018-03-22] MEDS: Acetaminophen 325 MG TABLET PO PRN ×3 (00:06→17:33)
[2018-03-22] MEDS: Ipratropium/Albuterol Neb 3 ML IH SCH ×4 (04:06→22:17)
[2018-03-22] MEDS: Pantoprazole 40 MG VIAL IVP SCH (06:03)
[2018-03-22 06:27] LABS: Basophils % 0.6 %; Eosinophils % 0.6 %; Hematocrit 32.6 % (35.3-44.9); Hemoglobin 9.5 g/dL (11.5-15.4); Immature Granulocytes % 0.4 % (0-4); Lymphocytes # 1.1 K/mcL (0.6-4.6); Mean Corpuscular HGB Conc 29.1 g/dL (31.6-35.5); Mean Corpuscular Hemoglobin 24.9 pg (28.0-33.3); Mean Corpuscular Volume 85.3 fL (83.0-100.0); Mean Platelet Volume 10.8 fL (9.4-12.4); Monocytes # 0.6 K/mcL (0.0-1.3); Monocytes % 12.5 %; Neutrophils # 3.1 K/mcL (1.6-8.9); Platelet Count 181 K/mcL (140-400); Red Blood Count 3.82 M/mcL (3.82-4.97); Red Cell Distribution Width 22.1 % (11.5-14.5); Segmented Neutrophils % 63.9 %
[2018-03-22 06:52] LABS: Alanine Aminotransferase 10 Units/L (7-52); Albumin 3.2 g/dL (3.5-5.7); Albumin/Globulin Ratio 1.3 (1.1-2.2); Alkaline Phosphatase 53 Units/L (34-104); Aspartate Amino Transferase 17 Units/L (13-39); BUN/Creatinine Ratio 9 (6-26); Bilirubin,Total 0.3 mg/dL (0.3-1.0); Blood Urea Nitrogen 8 mg/dL (8-23); Calcium 8.4 mg/dL (8.6-10.3); Carbon Dioxide 21 mEq/L (23-29); Chloride 109 mEq/L (98-107); Globulin 2.5 g/dL (2.4-3.5); Glucose 103 mg/dL (70-105); Osmolality,Calculated 285 (280-300); Potassium 3.4 mEq/L (3.5-5.1); Sodium 138 mEq/L (136-145); Total Protein 5.7 g/dL (6.4-8.9); eGFR For African Americans > 60 (> 60); eGFR For Non-African Americans 58 (> 60)
--- NOTE | 2018-03-22 08:11 | Internal Med Progress Note ---
<Eliezer Hurt - Last Filed: 03/22/18 11:38> Date of Encounter: 03/22/18 Time of Encounter: 08:10 - Assessment and plan (1) UTI (urinary tract infection) Current Visit: Yes Status: Acute Assessment and plan: - Acute urinary tract infection as demonstrated by urinalysis performed emergency department with leukocyte esterase, WBC, bacteria, nitrites - Blood culture and urine culture so far growing gram-negative rods with PCR showing enterobacter and E.coli in the blood - Pt denies symptoms - Renal US showing no evidence of pyelonephritis. - CT abd pelvis showed no acute process, stable diverticulosis and a large hiatal hernia. - Started on Rocephin and did receive one dose of vanc/zosyn - Final cultures and sensitivities pending. Preliminary blood with PCR of E.coli and gram negative rods on culture, urine growing E.coli Plan - Continue rocephin Day #3 - Consider oral transition to levaquin vs omnicef for 14 days after negative blood cx. - Repeat blood cx today - Continue to monitor for signs of improvement. - Repeat blood cultures tomorrow - De-escalate Abx and possible for sensitivites. Qualifiers: Urinary tract infection type: acute cystitis Hematuria presence: with hematuria Qualified Code(s): N30.01 - Acute cystitis with hematuria (2) ANNE (acute kidney injury) Current Visit: Yes Status: Acute Assessment and plan: - ANNE on admission with a creatinine of 1.13 and GFR of 46 - BUN/creatinine improved to 8/0.93, consistent with baseline - Most likely secondary to prerenal causes and decreased oral intake in the setting of infection and altered mental status - Discontinue fluids as pt is tolerating diet. - Retroperitoneal ultrasound showing mildly atrophic left kidney without obvious stone, hydronephrosis or acute process Plan - Continue to monitor and avoid nephrotoxic agents - Appears to be at baseline. Continue monitor labs (3) CAD (coronary artery disease) Current Visit: Yes Status: Chronic Assessment and plan: - Asymptomatic - Continue home meds - Okay to discontinue telemetry Qualifiers: Coronary Disease-Associated Artery/Lesion type: due to lipid rich plaque Qualified Code(s): I25.10 - Atherosclerotic heart disease of [place] coronary artery without angina pectoris (4) COPD (chronic obstructive pulmonary disease) Current Visit: Yes Status: Chronic Assessment and plan: - Patient denying any symptoms of shortness of breath - Not in acute exacerbation - Continue home inhalers and oxygen as needed - States she uses 2L at home PRN, mostly at night. Qualifiers: COPD type: chronic bronchitis Chronic bronchitis type: simple Qualified Code(s): J41.0 - Simple chronic bronchitis (5) GERD (gastroesophageal reflux disease) Current Visit: Yes Status: Chronic Assessment and plan: - Hx of chronic GERD. - IVP Zofran 4 mg Q6HR PRN for N/V. - Discontinue protonix. H/H stable. History of recent possible GI bleed Qualifiers: Esophagitis presence: esophagitis presence not specified Qualified Code(s) : K21.9 - Gastro-esophageal reflux disease without esophagitis (6) Hypothyroid Current Visit: Yes Status: Chronic Assessment and plan: Hx of hypothyroidism. TSH and free T4 within normal limits Continue home Synthroid. Qualifiers: Hypothyroidism type: unspecified Qualified Code(s): E03.9 - Hypothyroidism , unspecified (7) HTN (hypertension) Current Visit: Yes Status: Chronic Assessment and plan: - Well controlled, BP this AM of 134/61 - Continue home meds, hydralazine PRN Qualifiers: Hypertension type: essential hypertension Qualified Code(s): I10 - Essential (primary) hypertension (8) Nausea & vomiting Current Visit: Yes Status: Resolved Assessment and plan: Acute N/V over the past several days. IVP Zofran 4 mg Q6HR PRN. Monitor I&O. likely secondary to infection as above. Qualifiers: Vomiting type: unspecified Vomiting Intractability: non-intractable Qualified Code(s): R11.2 - Nausea with vomiting, unspecified (9) Weakness Current Visit: Yes Status: Acute Assessment and plan: Acute on chronic weakness exacerbated by current UTI. Falls/safety precautions, up with assist, bed rest w/bedside commode w/assist only. PT/OT (10) History of GI bleed Current Visit: Yes Status: Chronic Assessment and plan: - Hx of GI bleeding 2.5 years ago and report of melanotic stools that required upper endoscopy on Wednesday. - Monitor pt. for signs of bleeding, H/H, and f/u labs. - H/H of 9.5/32.6, is stable from previous of 9.7 - Pt reports black stools but takes iron supplementation. - Pt did receive some fluids for infection as above. Plan - Stool occult ordered. - Will closely monitor with low threshold for transfuse and GI consult. - Daily labs. - Discontinue ibuprofen for pain, replace with tylenol. (11) DVT prophylaxis Current Visit: Yes Status: Acute Assessment and plan: Bilateral SCDs on LEs for DVT prophylaxis d/t hx of GI bleeds requiring recent upper endoscopy. Monitor pt. for signs of bleeding. (12) Acute metabolic encephalopathy Current Visit: Yes Status: Resolved Assessment and plan: - AMS delirium secondary likely to UTI as above. - Resolved, patient back to baseline mental status per herself and family who is present at bedside. - Continue to monitor for signs of deterioration - Treat underlying illness. - Time Spent With Patient Total time spent is greater than 50% in coordination of care (as documented) at patient's floor/unit and/or counseling patient: - Subjective Interval history: Patient seen and examined at bedside. She states that she feels "100% better "from yesterday. She has no further symptoms abdominal pain, nausea, vomiting, and feels like she is back to her baseline mental status. She did have a fever of 101.0 overnight however she states that it has resolved and she feels back to baseline. Still denies any symptoms of dysuria, frequency, urgency. - Constitutional Vitals: Temp Pulse Resp BP Pulse Ox 98.3 F 81 16 134/61 97 03/22/18 07:11 03/22/18 07:11 03/22/18 07:11 03/22/18 07:11 03/22/18 07:11 General appearance: Present: cooperative, A&O X 3, pleasant, no acute distress, answers questions appropriately Exam: Gen.: Vitals noted. No acute distress. AAOx3 HEENT: PERRL/EOMI, oropharynx clear, Normocephalic, atraumatic Cardiac: RRR, no murmur, +S1/S2 Pulmonary: CTA bilaterally, no wheezes, rales or rhonchi, equal chest expansion Abdomen: soft, nontender, BS noted, no guarding Back: Nontender CVAs bilaterally MSK: ROM intact, no joint swelling noted Extremities: no BLE edema, nontender calf, no cyanosis or clubbing Neuro: A&Ox3, moves all extremities, no focal deficits Psych: Appropriate mood and behavior Internal Medicine: Result - Labs CBC & Chem 7: 03/22/18 05:02 03/22/18 05:02 Labs: Short CBC 03/22/18 Range/Units 05:02 WBC 4.8 (4.3-11.1) K/mcL Hgb 9.5 L (11.5-15.4) g/dL Hct 32.6 L (35.3-44.9) % Plt Count 181 (140-400) K/mcL Neutrophils # 3.1 (1.6-8.9) K/mcL BMP 03/22/18 05:02 Sodium 138 Potassium 3.4 L Chloride 109 H Carbon Dioxide 21 L BUN 8 Creatinine 0.93 Glucose 103 Calcium 8.4 L Liver Function 03/22/18 Range/Units 05:02 Total Bilirubin 0.3 (0.3-1.0) mg/dL AST 17 (13-39) Units/L ALT 10 (7-52) Units/L Alkaline Phosphatase 53 (34-104) Units/L Albumin 3.2 L (3.5-5.7) g/dL - ABG Interpretation ABG results: PT/INR, D-dimer PT 12.5 Seconds (9.4-12.1) H 03/20/18 11:39 - Impressions Impressions Retroperitoneum Ultrasound 03/21/18 10:00 IMPRESSION: Mildly atrophic left kidney. No obvious stone, hydronephrosis, or acute process on limited exam. D/ / Vicky Espinoza MD / Vicky Espinoza MD Interpreting Provider: Vicky Espinoza MD Abdomen/Pelvis CT 03/21/18 14:30 IMPRESSION: 1. No acute process demonstrated 2. Large hiatal hernia 3. Colonic diverticulosis 4. Status post cholecystectomy and hysterectomy 5. Trace pleural effusions D/ / Alejandro Dickey MD / Alejandro Dickey MD Interpreting Provider: Alejandro Dickey MD Consult Discharge Plan - Plan Referrals: Mihai Medrano MD [Primary Care Provider] - 03/30/18 3:00 pm <Johan Bains - Last Filed: 03/22/18 16:10> Date of Encounter: 03/22/18 - Assessment and plan (1) Sepsis Current Visit: Yes Status: Resolved Assessment and plan: Had fever, tachycardia and UTI on admission. Blood and urine cx grew E coli. Sepsis now resolved. Repeat blood cx pending. Qualifiers: Sepsis type: Escherichia coli Qualified Code(s): A41.51 - Sepsis due to Escherichia coli [E. coli] (2) Bacteremia Current Visit: Yes Status: Acute Assessment and plan: Due to E. coli (3) CAD (coronary artery disease) Current Visit: Yes Status: Chronic Qualifiers: Coronary Disease-Associated Artery/Lesion type: [place] artery [place] vs. transplanted heart: [place] heart Associated angina: without angina Qualified Code(s): I25.10 - Atherosclerotic heart disease of [place] coronary artery without angina pectoris (4) COPD (chronic obstructive pulmonary disease) Current Visit: Yes Status: Chronic Qualifiers: COPD type: chronic bronchitis Chronic bronchitis type: simple Qualified Code(s): J41.0 - Simple chronic bronchitis (5) GERD (gastroesophageal reflux disease) Current Visit: Yes Status: Chronic Qualifiers: Esophagitis presence: esophagitis presence not specified Qualified Code(s) : K21.9 - Gastro-esophageal reflux disease without esophagitis (6) Hypothyroid Current Visit: Yes Status: Chronic Qualifiers: Hypothyroidism type: acquired Qualified Code(s): E03.9 - Hypothyroidism, unspecified (7) DVT prophylaxis Current Visit: Yes Status: Acute (8) UTI (urinary tract infection) Current Visit: Yes Status: Acute Qualifiers: Urinary tract infection type: acute cystitis Hematuria presence: with hematuria Qualified Code(s): N30.01 - Acute cystitis with hematuria (9) HTN (hypertension) Current Visit: Yes Status: Chronic Qualifiers: Hypertension type: essential hypertension Qualified Code(s): I10 - Essential (primary) hypertension (10) Weakness Current Visit: Yes Status: Acute (11) Nausea & vomiting Current Visit: Yes Status: Resolved Qualifiers: Vomiting type: unspecified Vomiting Intractability: non-intractable Qualified Code(s): R11.2 - Nausea with vomiting, unspecified (12) Acute metabolic encephalopathy Current Visit: Yes Status: Resolved (13) History of GI bleed Current Visit: Yes Status: Chronic (14) ANNE (acute kidney injury) Current Visit: Yes Status: Acute - Time Spent With Patient Total time spent is greater than 50% in coordination of care (as documented) at patient's floor/unit and/or counseling patient: - Constitutional Vitals: Temp Pulse Resp BP Pulse Ox 99.8 F H 94 18 131/57 93 03/22/18 14:00 03/22/18 14:00 03/22/18 14:00 03/22/18 14:00 03/22/18 14:00 Internal Medicine: Result - Labs CBC & Chem 7: 03/22/18 05:02 03/22/18 05:02 Labs: Short CBC 03/22/18 Range/Units 05:02 WBC 4.8 (4.3-11.1) K/mcL Hgb 9.5 L (11.5-15.4) g/dL Hct 32.6 L (35.3-44.9) % Plt Count 181 (140-400) K/mcL Neutrophils # 3.1 (1.6-8.9) K/mcL BMP 03/22/18 05:02 Sodium 138 Potassium 3.4 L Chloride 109 H Carbon Dioxide 21 L BUN 8 Creatinine 0.93 Glucose 103 Calcium 8.4 L Liver Function 03/22/18 Range/Units 05:02 Total Bilirubin 0.3 (0.3-1.0) mg/dL AST 17 (13-39) Units/L ALT 10 (7-52) Units/L Alkaline Phosphatase 53 (34-104) Units/L Albumin 3.2 L (3.5-5.7) g/dL - ABG Interpretation ABG results: PT/INR, D-dimer PT 12.5 Seconds (9.4-12.1) H 03/20/18 11:39 - Attending Attestation I examined this patient and my medical decision-making was reviewed with the Resident Physician on 03/22/18. I agree with the documented findings, disposition and treatment plan as described except to the extent set forth below. Ms Esquivel is currently admitted for sepsis related to E coli UTI/bacteremia. She remains moderate to high risk due to potential for worsening clinical status. Ms Esquivel feels OK. She had fever again last evening. No fever now. No pain. Has been eating OK. No GI issues. Tolerating abx. Repeat blood cx done today. Exam Alert Comfortable Mucus membranes dry Heart reg No wheeze Abd soft I/P 1. Sepsis due to E coli - resolved now. Repeat blood cx pending. 2. E coli UTI Further diagnoses and plan as above.
[2018-03-22] MEDS: cefTRIAXone 2,000 MG in Water for inj. (sterile) 20 ML 20 ML IVP SCH (08:54)
[2018-03-22] MEDS: Metoprolol XL (24 HR) Succ 50 MG TAB.ER.24H PO SCH (08:55)
[2018-03-22] MEDS: Sucralfate 1 GM TABLET PO SCH ×2 (08:55→19:30)
[2018-03-22] MEDS: Budesonide/Formoterol 160/4.5 MDI IH SCH ×2 (10:27→22:18)
[2018-03-22] MEDS: Gabapentin 300 MG CAPSULE PO SCH (19:30)
[2018-03-23] MEDS: Ipratropium/Albuterol Neb 3 ML IH SCH ×2 (03:23→10:42)
[2018-03-23 05:51] LABS: Basophils % 0.8 %; Eosinophils # 0.1 K/mcL (0.0-0.6); Hematocrit 32.2 % (35.3-44.9); Hemoglobin 9.7 g/dL (11.5-15.4); Immature Granulocytes % 0.4 % (0-4); Lymphocytes # 0.9 K/mcL (0.6-4.6); Mean Corpuscular HGB Conc 30.1 g/dL (31.6-35.5); Mean Corpuscular Hemoglobin 25.1 pg (28.0-33.3); Mean Corpuscular Volume 83.2 fL (83.0-100.0); Mean Platelet Volume 10.6 fL (9.4-12.4); Monocytes # 0.6 K/mcL (0.0-1.3); Neutrophils # 3.4 K/mcL (1.6-8.9); Platelet Count 190 K/mcL (140-400); Red Blood Count 3.87 M/mcL (3.82-4.97); Red Cell Distribution Width 22.1 % (11.5-14.5); Segmented Neutrophils % 67.8 %
[2018-03-23 06:10] LABS: Alanine Aminotransferase 11 Units/L (7-52); Albumin 3.3 g/dL (3.5-5.7); Albumin/Globulin Ratio 1.3 (1.1-2.2); Alkaline Phosphatase 56 Units/L (34-104); Aspartate Amino Transferase 18 Units/L (13-39); BUN/Creatinine Ratio 9 (6-26); Bilirubin,Total 0.5 mg/dL (0.3-1.0); Blood Urea Nitrogen 8 mg/dL (8-23); Calcium 8.6 mg/dL (8.6-10.3); Carbon Dioxide 23 mEq/L (23-29); Chloride 106 mEq/L (98-107); Globulin 2.5 g/dL (2.4-3.5); Glucose 97 mg/dL (70-105); Osmolality,Calculated 288 (280-300); Potassium 3.6 mEq/L (3.5-5.1); Sodium 140 mEq/L (136-145); Total Protein 5.8 g/dL (6.4-8.9); eGFR For African Americans > 60 (> 60); eGFR For Non-African Americans 57 (> 60)
[2018-03-23] MEDS: Sucralfate 1 GM TABLET PO SCH ×2 (08:22→20:10)
[2018-03-23] MEDS: cefTRIAXone 2,000 MG in Water for inj. (sterile) 20 ML 20 ML IVP SCH (08:23)
[2018-03-23] MEDS: Metoprolol XL (24 HR) Succ 50 MG TAB.ER.24H PO SCH (08:23)
[2018-03-23] MEDS: Budesonide/Formoterol 160/4.5 MDI IH SCH ×2 (10:41→20:28)
--- NOTE | 2018-03-23 10:52 | Internal Med Progress Note ---
<Eliezer Hurt - Last Filed: 03/23/18 13:29> Date of Encounter: 03/23/18 Time of Encounter: 10:51 - Assessment and plan (1) Sepsis Current Visit: Yes Status: Resolved Assessment and plan: Resolved. See below for UTI, bacteremia. - No longer meeting any SIRS criteria. Qualifiers: Sepsis type: Escherichia coli Qualified Code(s): A41.51 - Sepsis due to Escherichia coli [E. coli] (2) UTI (urinary tract infection) Current Visit: Yes Status: Acute Assessment and plan: - Acute urinary tract infection as demonstrated by urinalysis performed emergency department with leukocyte esterase, WBC, bacteria, nitrites - Blood culture and urine culture so far growing gram-negative rods with PCR showing enterobacter and E.coli in the blood - Pt denies symptoms - Renal US showing no evidence of pyelonephritis. - CT abd pelvis showed no acute process, stable diverticulosis and a large hiatal hernia. - Started on Rocephin and did receive one dose of vanc/zosyn - Final cultures and sensitivities pending. Preliminary blood with PCR of E.coli and gram negative rods on culture, urine growing E.coli Plan - Continue rocephin Day #4 - Consider oral transition to levaquin 14 days after negative blood cx after bacteremia resolved. - Repeat blood cx pending - Continue to monitor for signs of improvement. Qualifiers: Urinary tract infection type: acute cystitis Hematuria presence: with hematuria Qualified Code(s): N30.01 - Acute cystitis with hematuria (3) CAD (coronary artery disease) Current Visit: Yes Status: Chronic Assessment and plan: - Asymptomatic - Continue home meds - Okay to discontinue telemetry Qualifiers: Coronary Disease-Associated Artery/Lesion type: [place] artery [place] vs. transplanted heart: [place] heart Associated angina: without angina Qualified Code(s): I25.10 - Atherosclerotic heart disease of [place] coronary artery without angina pectoris (4) COPD (chronic obstructive pulmonary disease) Current Visit: Yes Status: Chronic Assessment and plan: - Patient denying any symptoms of shortness of breath - Not in acute exacerbation - Continue home inhalers and oxygen as needed - States she uses 2L at home PRN, mostly at night. Qualifiers: COPD type: chronic bronchitis Chronic bronchitis type: simple Qualified Code(s): J41.0 - Simple chronic bronchitis (5) GERD (gastroesophageal reflux disease) Current Visit: Yes Status: Chronic Assessment and plan: - Hx of chronic GERD. - IVP Zofran 4 mg Q6HR PRN for N/V. - Discontinue protonix. H/H stable. History of recent possible GI bleed Qualifiers: Esophagitis presence: esophagitis presence not specified Qualified Code(s) : K21.9 - Gastro-esophageal reflux disease without esophagitis (6) Hypothyroid Current Visit: Yes Status: Chronic Assessment and plan: Hx of hypothyroidism. TSH and free T4 within normal limits Continue home Synthroid. Qualifiers: Hypothyroidism type: acquired Qualified Code(s): E03.9 - Hypothyroidism, unspecified (7) HTN (hypertension) Current Visit: Yes Status: Chronic Assessment and plan: - Well controlled, BP this AM of 168/73 which is an isolated finding. - Continue home meds, hydralazine PRN Qualifiers: Hypertension type: essential hypertension Qualified Code(s): I10 - Essential (primary) hypertension (8) Nausea & vomiting Current Visit: Yes Status: Resolved Assessment and plan: Acute N/V over the past several days. IVP Zofran 4 mg Q6HR PRN. Monitor I&O. likely secondary to infection as above. Qualifiers: Vomiting type: unspecified Vomiting Intractability: non-intractable Qualified Code(s): R11.2 - Nausea with vomiting, unspecified (9) Weakness Current Visit: Yes Status: Acute Assessment and plan: Acute on chronic weakness exacerbated by current UTI. Falls/safety precautions, up with assist, bed rest w/bedside commode w/assist only. PT/OT (10) History of GI bleed Current Visit: Yes Status: Chronic Assessment and plan: - Hx of GI bleeding 2.5 years ago and report of melanotic stools that required upper endoscopy on Wednesday. - Monitor pt. for signs of bleeding, H/H, and f/u labs. - H/H of 9.7/32.2, stable from previous. - Pt reports black stools but takes iron supplementation. - Pt did receive some fluids for infection as above. Plan - Stool occult ordered. - Will closely monitor with low threshold for transfuse and GI consult. - Daily labs. - Discontinue ibuprofen for pain, replace with tylenol. (11) ANNE (acute kidney injury) Current Visit: Yes Status: Acute Assessment and plan: - ANNE on admission with a creatinine of 1.13 and GFR of 46 - BUN/creatinine improved to 8/0.94, consistent with baseline - Most likely secondary to prerenal causes and decreased oral intake in the setting of infection and altered mental status - Retroperitoneal ultrasound showing mildly atrophic left kidney without obvious stone, hydronephrosis or acute process Plan - Continue to monitor and avoid nephrotoxic agents - Appears to be at baseline. Continue monitor labs (12) Acute metabolic encephalopathy Current Visit: Yes Status: Resolved Assessment and plan: - AMS delirium secondary likely to UTI as above. - Resolved, patient back to baseline mental status per herself and family who is present at bedside. - Continue to monitor for signs of deterioration - Treat underlying illness. (13) DVT prophylaxis Current Visit: Yes Status: Acute Assessment and plan: Bilateral SCDs on LEs for DVT prophylaxis d/t hx of GI bleeds requiring recent upper endoscopy. Monitor pt. for signs of bleeding. (14) Bacteremia Current Visit: Yes Status: Acute Assessment and plan: Secondary to E. Coli growing in urine. - See below for UTI - Repeat blood cultures pending. - Time Spent With Patient Total time spent is greater than 50% in coordination of care (as documented) at patient's floor/unit and/or counseling patient: 25 - 35 minutes - Subjective Interval history: Patient seen and examined at bedside. She states that she feels "100% better" from admission. She has no further symptoms abdominal pain, nausea, vomiting, and feels like she is back to her baseline mental status. No overnight events, afebrile. Still denies any symptoms of dysuria, frequency, urgency. - Constitutional Vitals: Temp Pulse Resp BP Pulse Ox 98.2 F 110 16 168/73 98 03/23/18 06:37 03/23/18 06:37 03/23/18 06:37 03/23/18 06:37 03/23/18 06:37 General appearance: Present: cooperative, A&O X 3, pleasant, no acute distress, answers questions appropriately Exam: Gen.: Vitals noted. No acute distress. AAOx3 HEENT: PERRL/EOMI, oropharynx clear, Normocephalic, atraumatic, MMM Cardiac: RRR, no murmur, +S1/S2 Pulmonary: CTA bilaterally, no wheezes, rales or rhonchi, equal chest expansion Abdomen: soft, nontender, BS noted, no guarding, no rebound. MSK: ROM intact, no joint swelling noted Extremities: no BLE edema, nontender calf, no cyanosis or clubbing Neuro: A&Ox3, moves all extremities, no focal deficits Psych: Appropriate mood and behavior Internal Medicine: Result - Labs CBC & Chem 7: 03/23/18 04:59 03/23/18 04:59 Labs: Short CBC 03/23/18 Range/Units 04:59 WBC 5.0 (4.3-11.1) K/mcL Hgb 9.7 L (11.5-15.4) g/dL Hct 32.2 L (35.3-44.9) % Plt Count 190 (140-400) K/mcL Neutrophils # 3.4 (1.6-8.9) K/mcL BMP 03/23/18 04:59 Sodium 140 Potassium 3.6 Chloride 106 Carbon Dioxide 23 BUN 8 Creatinine 0.94 Glucose 97 Calcium 8.6 Liver Function 03/23/18 Range/Units 04:59 Total Bilirubin 0.5 (0.3-1.0) mg/dL AST 18 (13-39) Units/L ALT 11 (7-52) Units/L Alkaline Phosphatase 56 (34-104) Units/L Albumin 3.3 L (3.5-5.7) g/dL - ABG Interpretation ABG results: PT/INR, D-dimer PT 12.5 Seconds (9.4-12.1) H 03/20/18 11:39 Consult Discharge Plan - Plan Referrals: JASPREET WILL [Other] - 03/30/18 3:00 pm <Johan Bains - Last Filed: 03/23/18 17:17> Date of Encounter: 03/23/18 - Assessment and plan (1) Sepsis Current Visit: Yes Status: Resolved Qualifiers: Sepsis type: Escherichia coli Qualified Code(s): A41.51 - Sepsis due to Escherichia coli [E. coli] (2) Bacteremia Current Visit: Yes Status: Acute (3) UTI (urinary tract infection) Current Visit: Yes Status: Acute Qualifiers: Urinary tract infection type: acute cystitis Hematuria presence: with hematuria Qualified Code(s): N30.01 - Acute cystitis with hematuria (4) CAD (coronary artery disease) Current Visit: Yes Status: Chronic Qualifiers: Coronary Disease-Associated Artery/Lesion type: [place] artery [place] vs. transplanted heart: [place] heart Associated angina: without angina Qualified Code(s): I25.10 - Atherosclerotic heart disease of [place] coronary artery without angina pectoris (5) COPD (chronic obstructive pulmonary disease) Current Visit: Yes Status: Chronic Qualifiers: COPD type: chronic bronchitis Chronic bronchitis type: simple Qualified Code(s): J41.0 - Simple chronic bronchitis (6) GERD (gastroesophageal reflux disease) Current Visit: Yes Status: Chronic Qualifiers: Esophagitis presence: esophagitis presence not specified Qualified Code(s) : K21.9 - Gastro-esophageal reflux disease without esophagitis (7) Hypothyroid Current Visit: Yes Status: Chronic Qualifiers: Hypothyroidism type: acquired Qualified Code(s): E03.9 - Hypothyroidism, unspecified (8) DVT prophylaxis Current Visit: Yes Status: Acute (9) HTN (hypertension) Current Visit: Yes Status: Chronic Qualifiers: Hypertension type: essential hypertension Qualified Code(s): I10 - Essential (primary) hypertension (10) Nausea & vomiting Current Visit: Yes Status: Resolved Qualifiers: Vomiting type: unspecified Vomiting Intractability: non-intractable Qualified Code(s): R11.2 - Nausea with vomiting, unspecified (11) Weakness Current Visit: Yes Status: Acute (12) History of GI bleed Current Visit: Yes Status: Chronic (13) ANNE (acute kidney injury) Current Visit: Yes Status: Acute (14) Acute metabolic encephalopathy Current Visit: Yes Status: Resolved - Time Spent With Patient Total time spent is greater than 50% in coordination of care (as documented) at patient's floor/unit and/or counseling patient: - Constitutional Vitals: Temp Pulse Resp BP Pulse Ox 97.8 F 91 14 111/63 94 03/23/18 15:08 03/23/18 15:08 03/23/18 15:08 03/23/18 15:08 03/23/18 15:08 Internal Medicine: Result - Labs CBC & Chem 7: 03/23/18 04:59 03/23/18 04:59 Labs: Short CBC 03/23/18 Range/Units 04:59 WBC 5.0 (4.3-11.1) K/mcL Hgb 9.7 L (11.5-15.4) g/dL Hct 32.2 L (35.3-44.9) % Plt Count 190 (140-400) K/mcL Neutrophils # 3.4 (1.6-8.9) K/mcL BMP 03/23/18 04:59 Sodium 140 Potassium 3.6 Chloride 106 Carbon Dioxide 23 BUN 8 Creatinine 0.94 Glucose 97 Calcium 8.6 Liver Function 03/23/18 Range/Units 04:59 Total Bilirubin 0.5 (0.3-1.0) mg/dL AST 18 (13-39) Units/L ALT 11 (7-52) Units/L Alkaline Phosphatase 56 (34-104) Units/L Albumin 3.3 L (3.5-5.7) g/dL - ABG Interpretation ABG results: PT/INR, D-dimer PT 12.5 Seconds (9.4-12.1) H 03/20/18 11:39 - Attending Attestation I examined this patient and my medical decision-making was reviewed with the Resident Physician on 03/23/18. I agree with the documented findings, disposition and treatment plan as described except to the extent set forth below. Ms Esquivel is currently admitted for E coli UTI and bacteremia. She remains moderate to high risk due to potential for worsening clinical status. Ms Esquivel is feeling OK. No fever or chills. Appetite OK. Blood cx pending at this time. Exam alert Comfortable Mucus membranes dry Heart distant No wheeze I/P 1. E coli UTI and bacteremia Further diagnoses and plan as above.
[2018-03-23] MEDS: Gabapentin 300 MG CAPSULE PO SCH (20:10)
[2018-03-24 04:47] LABS: Basophils # 0.1 K/mcL (0.0-0.2); Eosinophils # 0.2 K/mcL (0.0-0.6); Eosinophils % 4.5 %; Hematocrit 33.4 % (35.3-44.9); Immature Granulocytes % 0.6 % (0-4); Lymphocytes # 1.1 K/mcL (0.6-4.6); Lymphocytes % 21.6 %; Mean Corpuscular HGB Conc 29.9 g/dL (31.6-35.5); Mean Corpuscular Hemoglobin 24.8 pg (28.0-33.3); Mean Corpuscular Volume 82.7 fL (83.0-100.0); Mean Platelet Volume 10.4 fL (9.4-12.4); Monocytes # 0.5 K/mcL (0.0-1.3); Monocytes % 9.8 %; Neutrophils # 3.1 K/mcL (1.6-8.9); Platelet Count 240 K/mcL (140-400); Red Blood Count 4.04 M/mcL (3.82-4.97); Red Cell Distribution Width 21.8 % (11.5-14.5); Segmented Neutrophils % 62.5 %
[2018-03-24 05:13] LABS: Alanine Aminotransferase 12 Units/L (7-52); Albumin 3.4 g/dL (3.5-5.7); Albumin/Globulin Ratio 1.4 (1.1-2.2); Alkaline Phosphatase 58 Units/L (34-104); Aspartate Amino Transferase 16 Units/L (13-39); BUN/Creatinine Ratio 10 (6-26); Bilirubin,Total 0.4 mg/dL (0.3-1.0); Blood Urea Nitrogen 9 mg/dL (8-23); Calcium 8.8 mg/dL (8.6-10.3); Carbon Dioxide 22 mEq/L (23-29); Chloride 108 mEq/L (98-107); Globulin 2.5 g/dL (2.4-3.5); Glucose 91 mg/dL (70-105); Osmolality,Calculated 288 (280-300); Potassium 3.8 mEq/L (3.5-5.1); Sodium 140 mEq/L (136-145); Total Protein 5.9 g/dL (6.4-8.9); eGFR For African Americans > 60 (> 60); eGFR For Non-African Americans > 60 (> 60)
[2018-03-24 06:32] VITALS: BP 167/82
[2018-03-24] MEDS: Sucralfate 1 GM TABLET PO SCH (08:49)
[2018-03-24] MEDS: Metoprolol XL (24 HR) Succ 50 MG TAB.ER.24H PO SCH (08:49)
[2018-03-24] MEDS: cefTRIAXone 2,000 MG in Water for inj. (sterile) 20 ML 20 ML IVP SCH (08:49)
--- NOTE | 2018-03-24 10:05 | Discharge Summary ---
<BluEliezer - Last Filed: 03/24/18 15:24> Orders not resulted at time of discharge: Pending orders 03/21/18 12:26 Occult Blood,Stool [BF] Routine 03/22/18 11:32 Culture,Blood [BC] Routine Culture,Blood,Additional [BC] Routine 03/25/18 04:00 Complete Blood Count [HEME] AM 0400 Comprehensive Metabolic Panel AM 0400 Date of Encounter: 03/24/18 Time of Encounter: 10:02 - Discharge Diagnosis (1) CAD (coronary artery disease) Priority: Secondary Status: Chronic Qualifiers: Coronary Disease-Associated Artery/Lesion type: [place] artery [place] vs. transplanted heart: [place] heart Associated angina: without angina Qualified Code(s): I25.10 - Atherosclerotic heart disease of [place] coronary artery without angina pectoris (2) COPD (chronic obstructive pulmonary disease) Priority: Secondary Status: Chronic Qualifiers: COPD type: chronic bronchitis Chronic bronchitis type: simple Qualified Code(s): J41.0 - Simple chronic bronchitis (3) GERD (gastroesophageal reflux disease) Priority: Secondary Status: Chronic Qualifiers: Esophagitis presence: esophagitis presence not specified Qualified Code(s) : K21.9 - Gastro-esophageal reflux disease without esophagitis (4) Hypothyroid Priority: Secondary Status: Chronic Qualifiers: Hypothyroidism type: acquired Qualified Code(s): E03.9 - Hypothyroidism, unspecified (5) DVT prophylaxis Priority: Secondary Status: Acute (6) UTI (urinary tract infection) Priority: Primary Status: Acute Qualifiers: Urinary tract infection type: acute cystitis Hematuria presence: with hematuria Qualified Code(s): N30.01 - Acute cystitis with hematuria (7) HTN (hypertension) Priority: Secondary Status: Chronic Qualifiers: Hypertension type: essential hypertension Qualified Code(s): I10 - Essential (primary) hypertension (8) Nausea & vomiting Priority: Secondary Status: Resolved Qualifiers: Vomiting type: unspecified Vomiting Intractability: non-intractable Qualified Code(s): R11.2 - Nausea with vomiting, unspecified (9) Weakness Priority: Secondary Status: Acute (10) History of GI bleed Priority: Secondary Status: Chronic (11) ANNE (acute kidney injury) Priority: Secondary Status: Resolved (12) Acute metabolic encephalopathy Priority: Secondary Status: Resolved (13) Sepsis Priority: Secondary Status: Resolved Qualifiers: Sepsis type: Escherichia coli Qualified Code(s): A41.51 - Sepsis due to Escherichia coli [E. coli] (14) Bacteremia Priority: Secondary Status: Acute Hospital course: Ms. Esquivel is a 83 year old female with past medical history of hypertension, hyperlipidemia, anemia, hiatal hernia, COPD, CK D stage III who presented to the emergency department with chief complaint of altered mental status. She did recently undergo an EGD for reported black tarry stools. Family who is present at bedside reported that patient had been becoming progressively confused for the past 2 days. He also reported a fever of 101-102. In the emergency department, vitals were significant for a heart rate of 107, blood pressure 155/66, otherwise unremarkable. Laboratory results were significant for a urinalysis indicative of infection. Chest x-ray was unremarkable as well as head CT. She was admitted to medicine service further workup and evaluation of acute metabolic encephalopathy secondary to urinary tract infection. During course hospital stay, patient did gradually improve. She was treated with ceftriaxone and did receive a retroperitoneal ultrasound as well as abdominal/pelvis CT looking for any evidence of pyelonephritis versus alternative source of bacteremia. Both results were discussed with patient and returned negative for acute process but significant for large hiatal hernia, diverticulosis. Blood cultures did return positive for Escherichia coli which was sensitive to cephalosporins. Urine culture was also positive for this bacteria. Repeat blood cultures were drawn 48 hours later and were negative for growth. Patient's altered mental status did resolve and she was back at baseline per self and family was present at bedside. I will signs returns normal limits. Laboratory results remained at baseline levels. She will be discharged home in stable medical condition with home health and PT/OT and a prescription for Levaquin for 14 days from negative blood culture. She was instructed to follow-up to the emergency department with any worsening of symptoms. She was also instructed to follow-up with her primary care physician within 5 days of discharge. All questions were answered Discharge discussed with: patient - Time Spent with Patient Total time spent providing and/or coordinating discharge services: - Discharge Medications Prescriptions: Levofloxacin [Levaquin] 250 mg PO DAILY #14 tablet Home Medications: Cyclobenzaprine [Flexeril] 10 mg PO DAILY 04/01/16 [History] Esomeprazole Magnesium [Nexium] 40 mg PO DAILY PRN 04/01/16 [History] Famotidine [Pepcid] 20 mg PO DAILY 04/01/16 [History] Furosemide [Lasix] 20 mg PO DAILY PRN 04/01/16 [History] Gabapentin [Neurontin] 300 mg PO HS 04/01/16 [History] HYDROcodone/Acet 5/325 mg [[place] 5-325 mg] 1 tab PO TID PRN 04/01/16 [History] Metoprolol Succinate 50 mg PO DAILY 04/01/16 [History] Sertraline [Zoloft] 100 mg PO DAILY 04/01/16 [History] Sucralfate [Carafate] 1 gm PO BID 04/01/16 [History] Meclizine [Antivert] 25 mg PO TID PRN #15 tablet 05/03/17 [Rx] Albuterol Neb [Proventil Neb] 3 ml IH Q4HR 03/15/18 [History] Albuterol Sulfate [Proair Hfa] 2 puff IH Q4HR 03/15/18 [History] Ferrous Sulfate 325 mg PO TID 03/15/18 [History] Fluticasone/Salmeterol [Advair 500-50 Diskus] 1 puff IH DAILY 03/15/18 [History] Levothyroxine Sodium 50 mcg PO DAILY 03/15/18 [History] Levofloxacin [Levaquin] 250 mg PO DAILY #14 tablet 03/24/18 [Rx] Allergies/Adverse Reactions: 3 Allergy/AdvReac Type Severity Reaction Status Date / Time sulfamethoxazole Allergy Hives Verified 03/20/18 12:10 [From Bactrim] trimethoprim [From Bactrim] Allergy Hives Verified 03/20/18 12:10 Date of admission: 03/20/18 14:10 Primary care physician: Mihai Medrano MD Consults: 03/20/18 14:14 Consult to Barrel Endshake Adjuster [CONS] Routine Reason for SW Consult: Please assess patient for possible home needs for post -discharge planning. 03/20/18 14:16 Consult to Nutrition [CONS] Routine Comment: CHOCOLATE BOOST Consulting Provider: NUTRITION Reason for Dietary Consult: PO Supplementation 03/20/18 14:20 Consult to Nutrition [CONS] Routine Comment: Consulting Provider: NUTRITION Reason for Dietary Consult: MST Score Discharging clinician: Eliezer Hurt Anticipated date of discharge: 03/24/18 - Constitutional Vitals: Temp Pulse Resp BP Pulse Ox 97.9 F 95 14 167/82 95 03/24/18 06:28 03/24/18 06:28 03/24/18 06:28 03/24/18 06:28 03/24/18 07:42 General appearance: Present: cooperative, A&O X 3, pleasant, no acute distress, answers questions appropriately Exam: Gen.: Vitals noted. No acute distress. AAOx3 HEENT: PERRL/EOMI, oropharynx clear, Normocephalic, atraumatic, MMM Cardiac: RRR, no murmur, +S1/S2 Pulmonary: CTA bilaterally, no wheezes, rales or rhonchi, equal chest expansion Abdomen: soft, nontender, BS noted, no guarding, no rebound. MSK: ROM intact, no joint swelling noted Extremities: no BLE edema, nontender calf, no cyanosis or clubbing Neuro: A&Ox3, moves all extremities, no focal deficits Psych: Appropriate mood and behavior - Patient Status Disposition: Home, Self-Care Condition: Fair Functional capacity at discharge: independent ambulation Overall status at discharge: patient is back to baseline - Discharge Instructions Follow Up With: MIHAI WILL [Other] - 03/30/18 3:00 pm Forms: ED Satisfaction Letter Additional Instructions: please follow up with your PCP within one week of discharge and take all medications as prescribed. Return to the ED if your symptoms should return. - Diet and Activity Activity: increase activity as tolerated, resume usual activities as tolerated Diet: advance to your usual diet <Johan Bains - Last Filed: 03/24/18 17:26> Orders not resulted at time of discharge: Pending orders 03/21/18 12:26 Occult Blood,Stool [BF] Routine 03/22/18 11:32 Culture,Blood [BC] Routine Culture,Blood,Additional [BC] Routine Date of Encounter: 03/24/18 - Discharge Diagnosis (1) Sepsis Priority: Primary Status: Resolved Qualifiers: Sepsis type: Escherichia coli Qualified Code(s): A41.51 - Sepsis due to Escherichia coli [E. coli] (2) UTI (urinary tract infection) Status: Acute Qualifiers: Urinary tract infection type: acute cystitis Hematuria presence: with hematuria Qualified Code(s): N30.01 - Acute cystitis with hematuria (3) Bacteremia Status: Acute (4) Acute metabolic encephalopathy Priority: Primary Status: Resolved (5) CAD (coronary artery disease) Status: Chronic Qualifiers: Coronary Disease-Associated Artery/Lesion type: [place] artery [place] vs. transplanted heart: [place] heart Associated angina: without angina Qualified Code(s): I25.10 - Atherosclerotic heart disease of [place] coronary artery without angina pectoris (6) COPD (chronic obstructive pulmonary disease) Status: Chronic Qualifiers: COPD type: chronic bronchitis Chronic bronchitis type: simple Qualified Code(s): J41.0 - Simple chronic bronchitis (7) GERD (gastroesophageal reflux disease) Status: Chronic Qualifiers: Esophagitis presence: esophagitis presence not specified Qualified Code(s) : K21.9 - Gastro-esophageal reflux disease without esophagitis (8) Hypothyroid Status: Chronic Qualifiers: Hypothyroidism type: acquired Qualified Code(s): E03.9 - Hypothyroidism, unspecified (9) DVT prophylaxis Status: Acute (10) HTN (hypertension) Status: Chronic Qualifiers: Hypertension type: essential hypertension Qualified Code(s): I10 - Essential (primary) hypertension (11) Nausea & vomiting Status: Resolved Qualifiers: Vomiting type: unspecified Vomiting Intractability: non-intractable Qualified Code(s): R11.2 - Nausea with vomiting, unspecified (12) Weakness Status: Resolved (13) History of GI bleed Status: Chronic (14) ANNE (acute kidney injury) Status: Resolved Hospital course: Ms. Esquivel is a 83 year old female - Time Spent with Patient Total time spent providing and/or coordinating discharge services: 39min Date of admission: 03/20/18 14:10 Primary care physician: Mihai Medrano MD Consults: 03/20/18 14:14 Consult to Barrel Endshake Adjuster [CONS] Routine Reason for SW Consult: Please assess patient for possible home needs for post -discharge planning. 03/20/18 14:16 Consult to Nutrition [CONS] Routine Comment: CHOCOLATE BOOST Consulting Provider: NUTRITION Reason for Dietary Consult: PO Supplementation 03/20/18 14:20 Consult to Nutrition [CONS] Routine Comment: Consulting Provider: NUTRITION Reason for Dietary Consult: MST Score - Constitutional Vitals: Temp Pulse Resp BP Pulse Ox 97.9 F 95 14 167/82 95 03/24/18 06:28 03/24/18 06:28 03/24/18 06:28 03/24/18 06:28 03/24/18 07:42 - Attending Attestation I examined this patient and my medical decision-making was reviewed with the Resident Physician on 03/24/18. I agree with the documented findings, disposition and treatment plan as described except to the extent set forth below. Ms Esquivel has been admitted for encephalopathy related to E coli UTI and bacteremia. She is afebrile today and her repeat blood cultures are negative. She is tolerating abx. She feels at baseline and ready for discharge home. Exam Alert Comfortable Mucus membranes dry Heart distant and not tachy No wheeze Plan D/C home today Follow up with PCP Abx for 2 weeks from 03/22.
--- NOTE | 2018-03-24 10:37 | Physician Discharge Referral ---
Home Health/Hosp Referral Info Transfer to: Home Health Provider in Charge Post Discharge: PCP - Diagnosis (1) CAD (coronary artery disease) Priority: Secondary Status: Chronic (2) COPD (chronic obstructive pulmonary disease) Priority: Secondary Status: Chronic (3) GERD (gastroesophageal reflux disease) Priority: Secondary Status: Chronic (4) Hypothyroid Priority: Secondary Status: Chronic (5) DVT prophylaxis Priority: Secondary Status: Acute (6) UTI (urinary tract infection) Priority: Primary Status: Acute (7) HTN (hypertension) Priority: Secondary Status: Chronic (8) Nausea & vomiting Priority: Secondary Status: Resolved (9) Weakness Priority: Secondary Status: Acute (10) History of GI bleed Priority: Secondary Status: Chronic (11) ANNE (acute kidney injury) Priority: Secondary Status: Resolved (12) Acute metabolic encephalopathy Priority: Secondary Status: Resolved (13) Sepsis Priority: Secondary Status: Resolved (14) Bacteremia Priority: Secondary Status: Acute - Respiratory Orders Smoking Cessation: Smoking cessation has been advised. For more information, call the [place] Tobacco Quit Line at 1-221-UCSX-NOW. - Diet/Nutrition Diet/Nutrition Orders: Regular - Activity Activity Orders: Ambulate - Services Needed Following services are medically necessary services: Physical Therapy, Occupational Therapy - Transfer Medications Prescriptions: Levofloxacin [Levaquin] 250 mg PO DAILY #14 tablet Home Medications: Cyclobenzaprine [Flexeril] 10 mg PO DAILY 04/01/16 [History] Esomeprazole Magnesium [Nexium] 40 mg PO DAILY PRN 04/01/16 [History] Famotidine [Pepcid] 20 mg PO DAILY 04/01/16 [History] Furosemide [Lasix] 20 mg PO DAILY PRN 04/01/16 [History] Gabapentin [Neurontin] 300 mg PO HS 04/01/16 [History] HYDROcodone/Acet 5/325 mg [[place] 5-325 mg] 1 tab PO TID PRN 04/01/16 [History] Metoprolol Succinate 50 mg PO DAILY 04/01/16 [History] Sertraline [Zoloft] 100 mg PO DAILY 04/01/16 [History] Sucralfate [Carafate] 1 gm PO BID 04/01/16 [History] Meclizine [Antivert] 25 mg PO TID PRN #15 tablet 05/03/17 [Rx] Albuterol Neb [Proventil Neb] 3 ml IH Q4HR 03/15/18 [History] Albuterol Sulfate [Proair Hfa] 2 puff IH Q4HR 03/15/18 [History] Ferrous Sulfate 325 mg PO TID 03/15/18 [History] Fluticasone/Salmeterol [Advair 500-50 Diskus] 1 puff IH DAILY 03/15/18 [History] Levothyroxine Sodium 50 mcg PO DAILY 03/15/18 [History] Levofloxacin [Levaquin] 250 mg PO DAILY #14 tablet 03/24/18 [Rx] Allergies/Adverse Reactions: 3 Allergy/AdvReac Type Severity Reaction Status Date / Time sulfamethoxazole Allergy Hives Verified 03/20/18 12:10 [From Bactrim] trimethoprim [From Bactrim] Allergy Hives Verified 03/20/18 12:10 Certification: Further, I certify that my clinical findings support that this patient is homebound (i.e. absences from home require considerable and taxing effort and are for medical reasons or spiritism services or infrequently or short duration when for other reasons) because: Homebound Reason: Patient requires assistance of a person or device to safely leave home Attestation: My signature below is to certify that this patient is under my care and that I, or nurse practitioner, or a physician's property assistant working with me, has a face-to -face encounter with this patient.
== END 2018-03-24 10:56 | disposition home or self-care (01) | DRG 871 ==
LOC: 3ANU 10:40 → EMEROO 10:40 → 3ANU 13:12 → SUATTDRO 14:10
PROVIDERS: ADMIT Hospitalist; ATTEND Internal Medicine

== ENCOUNTER 2019-07-30 11:45 | Inpatient (IN) ==
[2019-07-30] MEDS ORDERED: 0.9 % Sodium Chloride 1,000 ML IVC ONE (11:52)
--- NOTE | 2019-07-30 11:55 | Emergency Department Note ---
Disposition Clinical Impression: UTI (urinary tract infection) Qualifiers: Urinary tract infection type: site unspecified Hematuria presence: without hematuria Qualified Code(s): N39.0 - Urinary tract infection, site not specified Septic arthritis Qualifiers: Septic arthritis location: knee Septic arthritis organism: due to unspecified organism Laterality: right Qualified Code(s): M00.9 - Pyogenic arthritis, unspecified Disposition: Admitted As Inpatient Condition: Good Time of Disposition: 14:34 General Adult HPI - General Chief complaint: ED Extremity Problem,Nontraumatic Stated complaint: leg pain Time Seen by Provider: 07/30/19 11:51 Source: patient, family Limitations: no limitations Nursing Notes Reviewed: Yes Vital Signs Reviewed: Yes - History of Present Illness HPI Narrative: 84-year-old female presented to emergency department with concern for right knee pain patient had knee replacement performed approximately 1 decade ago. She does not know his surgeon was. States that her last 2 days, she is unable to bear weight on it. Reports fever as well. No dysuria, urinary bruising, urge ncy, and does have a cough, no abdominal pain, no chest pain. Patient up in nature and nonradiating. Isolated to the anterior aspect of the right knee Pain Scale: 8 - Related Data Home Medications Medication Instructions Recorded Confirmed Cyclobenzaprine [Flexeril] 10 mg PO DAILY 04/01/16 05/31/19 Esomeprazole Magnesium [Nexium] 40 mg PO DAILY PRN 04/01/16 05/31/19 Famotidine [Pepcid] 20 mg PO DAILY 04/01/16 05/31/19 Furosemide [Lasix] 20 mg PO DAILY PRN 04/01/16 05/31/19 Gabapentin [Neurontin] 300 mg PO HS 04/01/16 05/31/19 Metoprolol Succinate 50 mg PO BID 04/01/16 05/31/19 Sertraline [Zoloft] 100 mg PO DAILY 04/01/16 05/31/19 Sucralfate [Carafate] 1 gm PO BID 04/01/16 05/31/19 Albuterol Sulfate [Proair Hfa] 2 puff IH Q4HR 03/15/18 05/31/19 Ferrous Sulfate 325 mg PO TID 03/15/18 05/31/19 Fluticasone/Salmeterol [Advair 1 puff IH DAILY 03/15/18 05/31/19 500-50 Diskus] Levothyroxine Sodium 50 mcg PO DAILY 03/15/18 05/31/19 Aspirin [Lo-Dose Aspirin EC] 81 mg PO DAILY 05/31/19 05/31/19 Hyoscyamine SL [Levsin Sl] 0.125 mg SL Q4HR 05/31/19 05/31/19 Allergies Allergy/AdvReac Type Severity Reaction Status Date / Time sulfamethoxazole Allergy Hives Verified 03/20/18 12:10 [From Bactrim] trimethoprim [From Bactrim] Allergy Hives Verified 03/20/18 12:10 All systems ED: reviewed and negative except as stated. Review of Systems: As Per HPI Constitutional: Reports: fever Cardiovascular: Denies: chest pain Respiratory: Denies: dyspnea Gastrointestinal: Denies: abdominal pain, nausea, vomiting Genitourinary: Denies: dysuria Musculoskeletal: Reports: other (Right knee pain). Denies: back pain Integumentary: Denies: rash Past Medical History - Past Medical History Attestation: Yes The following information was validated with the patient. Medical history: Reports: COPD, coronary artery disease, GERD, GI bleed, hyperlipidemia, hypertension, osteoporosis, thyroid disease, TIA Surgical history: Reports: angioplasty/stent Psychiatric history: Reports: depression MUSIC ENGRAVER history: Reports: no MUSIC ENGRAVER history - Social History Smoking Status: Former smoker Smokeless Tobacco Status: No Alcohol use: Reports: none Drug use: Reports: none Physical Exam - General Limitations: no limitations General appearance: alert - Head Head exam: normocephalic - Eye Eye exam: Present: EOMI - ENT ENT exam: mucous membranes moist - Neck Neck exam: Present: trachea midline - Chest Chest inspection: Present: symmetric chest wall rise - Respiratory Respiratory exam: Present: normal lung sounds bilaterally. Absent: respiratory distress, accessory muscle use - Cardiovascular Cardiovascular exam: Present: normal rhythm, tachycardia, normal heart sounds - Abdominal Exam Abdominal exam: Present: soft, Non-Tender. Absent: distention, guarding, rebound, rigidity - Extremities Exam Extremities exam: Present: other (Right knee with swelling is diffuse, is warm to touch, not red, midline scar over the patella. Very tender to palpation. Coronary vessel intact right lower extremity otherwise.) Course Vital Signs Temperature 100.6 F H 07/30/19 11:50 Pulse Rate 108 07/30/19 11:50 Respiratory Rate 18 07/30/19 11:50 Blood Pressure 137/66 07/30/19 11:50 O2 Sat by Pulse Oximetry 93 07/30/19 11:50 Temperature 98.1 F 07/30/19 18:47 Pulse Rate 78 07/30/19 18:47 Respiratory Rate 16 07/30/19 19:59 Blood Pressure 107/64 07/30/19 18:47 O2 Sat by Pulse Oximetry 98 07/30/19 19:59 Oxygen Delivery Oxygen Delivery Room Air Medical Decision Making - MDM Narrative Medical decision making narrative: 84-year-old female who since emergency department with concern for fever with right knee pain. Concern for septic joint. Did not Knee as this is a prosthesi s and would be concerned about possible introducing infection. Patient given vancomycin initially as well as Rocephin. She does have urinary tract infection which justified the use of Rocephin. Spoke with the orthopedic surgeon, Dr. Lyman who will follow patient on the floor. Recommended hospitalist for further management. Family agrees to plan. Patient stable at time of admission or suspected right knee septic arthritis as well as urinary tract infection. Chest X-Ray 07/30/19 11:52 IMPRESSION: 1. No acute abnormality. D/ / Herson Vela MD / Herson Vela MD Interpreting Provider: Herson Vela MD Knee CT 07/30/19 13:17 IMPRESSION: 1. Moderate nonspecific right knee effusion. If there is clinical concern for septic arthritis please consider arthrocentesis. 2. Status post right total knee arthroplasty. 3. Status post ORIF of a chronic healed distal femoral fracture. D/ / Tomy Christie MD / Tomy Christie MD Interpreting Provider: Tomy Christie MD - Lab Data Result diagrams: 07/30/19 12:06 07/30/19 12:06 Lab Results 07/30/19 07/30/19 07/30/19 Range/Units 12:06 12:06 12:06 WBC 13.6 H (4.3-11.1) K/mcL RBC 4.77 (3.82-4.97) M/mcL Hgb 13.9 (11.5-15.4) g/dL Hct 43.5 (35.3-44.9) % MCV 91.2 (83.0-100.0) fL MCH 29.1 (28.0-33.3) pg MCHC 32.0 (31.6-35.5) g/dL RDW 13.3 (11.5-14.5) % Plt Count 239 (140-400) K/mcL MPV 9.5 (9.4-12.4) fL Immature Gran % 0.8 (0-4) % Seg Neutrophils % 89.9 % Lymphocytes % 4.6 % Monocytes % 4.5 % Eosinophils % 0.0 % Basophils % 0.2 % Neutrophils # 12.2 H (1.6-8.9) K/mcL Lymphocytes # 0.6 (0.6-4.6) K/mcL Monocytes # 0.6 (0.0-1.3) K/mcL Eosinophils # 0.0 (0.0-0.6) K/mcL Basophils # 0.0 (0.0-0.2) K/mcL ESR (0-15) mm/hr PT 12.2 H (9.4-12.1) Seconds INR 1.1 APTT 29.0 (26.0-36.0) Seconds Sodium 136 (136-145) mEq/L Potassium 4.1 (3.5-5.1) mEq/L Chloride 101 (98-107) mEq/L Carbon Dioxide 23 (23-29) mEq/L BUN 15 (8-23) mg/dL Creatinine 1.12 (0.60-1.20) mg/dL Est GFR ( Amer) 56 L (> 60) Est GFR (Non-Af Amer) 46 L (> 60) BUN/Creatinine Ratio 13 (6-26) Glucose 114 H (70-105) mg/dL Calculated Osmolality 284 (280-300) Lactic Acid (0.5-2.2) mmol/L Calcium 9.1 (8.6-10.3) mg/dL Phosphorus 3.4 (2.7-4.5) mg/dL Magnesium 1.8 (1.6-2.6) mg/dL Total Bilirubin 1.1 H (0.3-1.0) mg/dL Direct Bilirubin 0.2 (0.0-0.2) mg/dL Indirect Bilirubin 0.9 (0.0-1.2) mg/dL AST 14 (13-39) Units/L ALT 8 (7-52) Units/L Alkaline Phosphatase 59 (34-104) Units/L Troponin I < 0.03 (< 0.04) ng/mL C-Reactive Protein 111 H (Less than 10) mg/L Serum Total Protein 7.0 (6.4-8.9) g/dL Albumin 4.1 (3.5-5.7) g/dL Globulin 2.9 (2.4-3.5) g/dL Albumin/Globulin Ratio 1.4 (1.1-2.2) Ur Specimen Adequacy Urine Color (Yellow) Urine Clarity (Clear) Urine pH (5.0-8.0) pH Units Ur Specific [place] (1.010-1.025) Urine Protein (Neg-Trace) mg/dL Urine Glucose (UA) (Normal) mg/dL Urine Ketones (Negative) mg/dL Urine Blood (Negative) Urine Nitrite (Negative) Urine Bilirubin (Negative) Urine Urobilinogen (Normal) mg/dL Ur Leukocyte Esterase (Negative) Urine Microscopic RBC (0-3) per hpf Urine Microscopic WBC (0-3) per hpf Ur Squamous Epith Cells (None-Few) per lpf Urine Bacteria (None-Few) per hpf Ur Culture Indicated? (NO) 07/30/19 07/30/19 07/30/19 Range/Units 12:06 12:06 14:40 WBC (4.3-11.1) K/mcL RBC (3.82-4.97) M/mcL Hgb (11.5-15.4) g/dL Hct (35.3-44.9) % MCV (83.0-100.0) fL MCH (28.0-33.3) pg MCHC (31.6-35.5) g/dL RDW (11.5-14.5) % Plt Count (140-400) K/mcL MPV (9.4-12.4) fL Immature Gran % (0-4) % Seg Neutrophils % % Lymphocytes % % Monocytes % % Eosinophils % % Basophils % % Neutrophils # (1.6-8.9) K/mcL Lymphocytes # (0.6-4.6) K/mcL Monocytes # (0.0-1.3) K/mcL Eosinophils # (0.0-0.6) K/mcL Basophils # (0.0-0.2) K/mcL ESR 36 H (0-15) mm/hr PT (9.4-12.1) Seconds INR APTT (26.0-36.0) Seconds Sodium (136-145) mEq/L Potassium (3.5-5.1) mEq/L Chloride (98-107) mEq/L Carbon Dioxide (23-29) mEq/L BUN (8-23) mg/dL Creatinine (0.60-1.20) mg/dL Est GFR ( Amer) (> 60) Est GFR (Non-Af Amer) (> 60) BUN/Creatinine Ratio (6-26) Glucose (70-105) mg/dL Calculated Osmolality (280-300) Lactic Acid 1.0 (0.5-2.2) mmol/L Calcium (8.6-10.3) mg/dL Phosphorus (2.7-4.5) mg/dL Magnesium (1.6-2.6) mg/dL Total Bilirubin (0.3-1.0) mg/dL Direct Bilirubin (0.0-0.2) mg/dL Indirect Bilirubin (0.0-1.2) mg/dL AST (13-39) Units/L ALT (7-52) Units/L Alkaline Phosphatase (34-104) Units/L Troponin I (< 0.04) ng/mL C-Reactive Protein (Less than 10) mg/L Serum Total Protein (6.4-8.9) g/dL Albumin (3.5-5.7) g/dL Globulin (2.4-3.5) g/dL Albumin/Globulin Ratio (1.1-2.2) Ur Specimen Adequacy See below A Urine Color Yellow (Yellow) Urine Clarity Turbid A (Clear) Urine pH 6.0 (5.0-8.0) pH Units Ur Specific [place] > 1.030 H (1.010-1.025) Urine Protein 30 H (Neg-Trace) mg/dL Urine Glucose (UA) Normal (Normal) mg/dL Urine Ketones Negative (Negative) mg/dL Urine Blood Moderate H (Negative) Urine Nitrite Negative (Negative) Urine Bilirubin Negative (Negative) Urine Urobilinogen Normal (Normal) mg/dL Ur Leukocyte Esterase Moderate H (Negative) Urine Microscopic RBC 0-3 (0-3) per hpf Urine Microscopic WBC 3-5 H (0-3) per hpf Ur Squamous Epith Cells Many H (None-Few) per lpf Urine Bacteria Moderate H (None-Few) per hpf Ur Culture Indicated? YES A (NO) - EKG Data EKG #1 EKG attestation: Yes I reviewed and interpreted this EKG. EKG results narrative: 11:58 Heart rate 101 bpm, TN interval 143 ms, QRS duration 76 months and some QT 334 seconds, normal axis. Sinus tachycardia with no ischemic ST changes. Attestation Statement - Attestation Attestation: Patient was seen with resident physician. I reviewed the history, physical, assessment and plan, and agree with the findings. I also personally evaluated this patient and had [id number] time with this patient. 84-year-old female presents with fevers and increased swelling and pain to the right knee. Patient has a history of bilateral total knee replacements. Over approximately 48 hours she has noticed increased pain and swelling. She is also had a cough. She has noticed fevers to. No nausea vomiting or diarrhea. Denies other complaints. Is having a difficult time ambulating secondary to the pain. Review systems as above remainder negative. Physical exam vital signs are stable. ENT is unremarkable. Heart regular rhythm and rate. Lungs clear but she does have a raspy cough. Abdomen is soft and nontender. Extremities swelling to the right knee no erythema. Painful on palpation and with passive or active movement. Distal pulses intact. Neurologically intact. Skin no rashes. Psych normal. ED course. We will do full septic workup the patient was febrile. I am hesitant to The knee because she has had a total knee replacement. We will image it we will also get labs will start on IV antibiotics and will have the patient admitted for additional evaluation and treatment. CT scan revealed no effusion. Labs showed elevated white blood cell count. Also possible UTI. Patient received IV antibiotics here which should cover all of the above. We also spoke with orthopedics to arrange for inpatient consultation. I agree with the resident physician assessment and plan. ED procedures.I reviewed the patient's EKG as well as the resident physician interpretation and I agree with the findings.
[2019-07-30 12:32] LABS: Basophils % 0.2 %; Hematocrit 43.5 % (35.3-44.9); Hemoglobin 13.9 g/dL (11.5-15.4); Immature Granulocytes % 0.8 % (0-4); Lymphocytes # 0.6 K/mcL (0.6-4.6); Lymphocytes % 4.6 %; Mean Corpuscular Hemoglobin 29.1 pg (28.0-33.3); Mean Corpuscular Volume 91.2 fL (83.0-100.0); Mean Platelet Volume 9.5 fL (9.4-12.4); Monocytes # 0.6 K/mcL (0.0-1.3); Monocytes % 4.5 %; Neutrophils # 12.2 K/mcL (1.6-8.9); Platelet Count 239 K/mcL (140-400); Red Blood Count 4.77 M/mcL (3.82-4.97); Red Cell Distribution Width 13.3 % (11.5-14.5); Segmented Neutrophils % 89.9 %; White Blood Count 13.6 K/mcL (4.3-11.1)
[2019-07-30 12:39] LABS: INR 1.1; Prothrombin Time 12.2 Seconds (9.4-12.1)
[2019-07-30 12:45] LABS: Alanine Aminotransferase 8 Units/L (7-52); Albumin 4.1 g/dL (3.5-5.7); Albumin/Globulin Ratio 1.4 (1.1-2.2); Alkaline Phosphatase 59 Units/L (34-104); Aspartate Amino Transferase 14 Units/L (13-39); BUN/Creatinine Ratio 13 (6-26); Bilirubin,Direct 0.2 mg/dL (0.0-0.2); Bilirubin,Indirect 0.9 mg/dL (0.0-1.2); Bilirubin,Total 1.1 mg/dL (0.3-1.0); Blood Urea Nitrogen 15 mg/dL (8-23); C-Reactive Protein 111 mg/L (Less than 10); Calcium 9.1 mg/dL (8.6-10.3); Carbon Dioxide 23 mEq/L (23-29); Chloride 101 mEq/L (98-107); Globulin 2.9 g/dL (2.4-3.5); Glucose 114 mg/dL (70-105); Magnesium 1.8 mg/dL (1.6-2.6); Osmolality,Calculated 284 (280-300); Phosphorous 3.4 mg/dL (2.7-4.5); Potassium 4.1 mEq/L (3.5-5.1); Sodium 136 mEq/L (136-145); Troponin I < 0.03 ng/mL (< 0.04); eGFR For African Americans 56 (> 60); eGFR For Non-African Americans 46 (> 60)
[2019-07-30] MEDS ORDERED: Isovue-370 500 ML BOTTLE IVP ONE (13:17)
[2019-07-30 14:58] LABS: Bilirubin,Urine Negative (Negative); Blood,Urine Moderate (Negative); Clarity,Urine Turbid (Clear); Color,Urine Yellow (Yellow); Glucose,Urine (UA) Normal (Normal); Ketones,Urine Negative (Negative); Leukocyte Esterase,Urine Moderate (Negative); Nitrite,Urine Negative (Negative); Protein,Urine 30 mg/dL (Neg-Trace); Specific Gravity,Urine > 1.030 (1.010-1.025); Urobilinogen,Urine Normal (Normal)
[2019-07-30 14:59] LABS: Bacteria,Urine Moderate per hpf (None-Few); RBC,Urine 0-3 per hpf (0-3); Squamous Epithelial Cell,Urine Many per lpf (None-Few)
[2019-07-30] MEDS ORDERED: cefTRIAXone 1,000 MG in Water for inj. (sterile) 10 ML IVP ONE (15:09)
[2019-07-30] MEDS ORDERED: Naloxone 0.4 MG/ML INJ IVP PRN (15:32)
--- NOTE | 2019-07-30 16:07 | Internal Med History&Physical ---
Date of Encounter: 07/30/19 Time of Encounter: 16:02 Internal Medicine - H&P: HPI Chief complaint: right knee pain Plans for Post Hospital Care: Home History of present illness: Ms. Esquivel is a 84 year old female PMH of B/L knee replacement more than 5 years ago, CAD, HLD, hypothyroidism, HTN and COPD. Patient presented to the ED due to right knee pain. Patient reported yesterday at around 2pm she started having right knee pain, but she thought it was related to her arthritic pain, but today morning she could not bear weight due to pain on the right knee. Her daughter noticed the right knee swollen and tender to touch and decided to bring the patient to the ED for evaluation. Patient and daughter denies trauma to the knee. Patient also reported having multiple episodes of watery diarrhea yesterday, and multiple episodes of non-bilious, non-bloody vomiting. Patient denies vomiting or diarrhea episodes today. Denies nausea, abdominal pain or chest pain. Past Med Surg Social Fam HX - Past Medical History Medical history: COPD, coronary artery disease, GERD, GI bleed, hyperlipidemia, hypertension, osteoporosis, thyroid disease, TIA Additional medical history: osteoarthritis - diverticulosis - hypokalemia - neurapathy - RLS - anemia Psychiatric history: depression - Past Surgical History Surgical History: angioplasty/stent Additional surgical history: EGD - Colonoscopy - x-lap -heart cath with stent. bi-lat knee replacement - Social History Smoking Status: Former smoker Smokeless Tobacco Status: No Alcohol use: none Drug use: none - Family History Brother Family Member Ethnicity: Non- Living Status: Hx Family Cardiac Disorders: Yes (CHF) Sister Family Member Ethnicity: Non- Living Status: Hx Family Cardiac Disorders: Yes ([place], CVA) Father Family Member Ethnicity: Non- Living Status: Hx Family Cardiac Disorders: Yes ([place]) Hx Family Endocrine Disorder: Yes (DM) Mother Family Member Ethnicity: Non- Living Status: Hx Family Cancer: Yes (Lung/Brain) Internal Medicine - H&P: Meds Cyclobenzaprine [Flexeril] 10 mg PO DAILY 04/01/16 [History] Esomeprazole Magnesium [Nexium] 40 mg PO DAILY PRN 04/01/16 [History] Famotidine [Pepcid] 20 mg PO DAILY 04/01/16 [History] Furosemide [Lasix] 20 mg PO DAILY PRN 04/01/16 [History] Gabapentin [Neurontin] 300 mg PO HS 04/01/16 [History] Metoprolol Succinate 50 mg PO BID 04/01/16 [History] Sertraline [Zoloft] 100 mg PO DAILY 04/01/16 [History] Sucralfate [Carafate] 1 gm PO BID 04/01/16 [History] Albuterol Sulfate [Proair Hfa] 2 puff IH Q4HR 03/15/18 [History] Ferrous Sulfate 325 mg PO TID 03/15/18 [History] Fluticasone/Salmeterol [Advair 500-50 Diskus] 1 puff IH DAILY 03/15/18 [History] Levothyroxine Sodium 50 mcg PO DAILY 03/15/18 [History] Aspirin [Lo-Dose Aspirin EC] 81 mg PO DAILY 05/31/19 [History] Hyoscyamine SL [Levsin Sl] 0.125 mg SL Q4HR 05/31/19 [History] Allergy/AdvReac Type Severity Reaction Status Date / Time sulfamethoxazole Allergy Hives Verified 03/20/18 12:10 [From Bactrim] trimethoprim [From Bactrim] Allergy Hives Verified 03/20/18 12:10 All Systems PM: A 10-system review of systems was performed and is negative for pertinent findings except as documented above in the HPI. - Constitutional Constitutional: no chills, no fever(s), no weakness - EENT Eyes: no irritation Nose, mouth and throat: no dysphagia - Cardiovascular Cardiovascular ROS IM: no chest pain, no dyspnea on exertion, no edema, no lightheadedness, no orthopnea - Respiratory Respiratory: cough (chronic non-productive), no dyspnea on exertion, no pain on inspiration, no excessive phlegm production - Gastrointestinal Gastrointestinal: no abdominal pain, no diarrhea, no dysphagia, no nausea, no vomiting - Genitourinary Genitourinary: no dysuria, no urinary frequency, no urinary incontinence, no urinary urgency - Musculoskeletal Musculoskeletal ROS IM: arthralgias (right knee ), no back pain, no muscle weakness, no stiffness - Integumentary Integumentary IM: no erythema, no non-healing lesions - Neurological Neurological ROS: no headache(s) - Psychiatric Psychiatric: no anxiety, no irritability - Endocrine Endocrine IM: no cold intolerance, no excessive sweating - Hematologic/Lymphatic Hematologic/Lymphatic: no easy bruising, no lymphadenopathy - Allergic/Immunologic Allergic/Immunologic: no GI upset with certain foods - Constitutional Vitals: Temp Pulse Resp BP Pulse Ox 100.6 F H 90 18 119/57 93 07/30/19 11:50 07/30/19 13:00 07/30/19 13:00 07/30/19 13:00 07/30/19 13:39 Exam: Vitals: Reviewed General: Alert and oriented x4. In mild distress due to right knee pain. Skin: Normal color, no rash, no lesions. HEENT: dry mucus membrane, EOM, pupils equal, round and reactive. Cardiovascular: RRR, normal S1 & S2, no rubs, murmurs or gallops. Lungs: CTA b/l, no wheezes or crackles. Abdomen: Soft, non-tender, no rigidity. Extremities: mild edematous and tender right knee. Neurological: Normal cognition and motor skills. Rest of the physical exam is non contributory Internal Med - H&P Results - Labs CBC & Chem 7: 07/30/19 12:06 07/30/19 12:06 Labs: Short CBC 07/30/19 Range/Units 12:06 WBC 13.6 H (4.3-11.1) K/mcL Hgb 13.9 (11.5-15.4) g/dL Hct 43.5 (35.3-44.9) % Plt Count 239 (140-400) K/mcL Neutrophils # 12.2 H (1.6-8.9) K/mcL BMP 07/30/19 12:06 Sodium 136 Potassium 4.1 Chloride 101 Carbon Dioxide 23 BUN 15 Creatinine 1.12 Glucose 114 H Calcium 9.1 Cardiac Enzymes 07/30/19 Range/Units 12:06 Troponin I < 0.03 (< 0.04) ng/mL Liver Function 07/30/19 Range/Units 12:06 Total Bilirubin 1.1 H (0.3-1.0) mg/dL Direct Bilirubin 0.2 (0.0-0.2) mg/dL AST 14 (13-39) Units/L ALT 8 (7-52) Units/L Alkaline Phosphatase 59 (34-104) Units/L Albumin 4.1 (3.5-5.7) g/dL Urine 07/30/19 Range/Units 14:40 Urine Color Yellow (Yellow) Urine Clarity Turbid A (Clear) Urine pH 6.0 (5.0-8.0) pH Units Ur Specific [place] > 1.030 H (1.010-1.025) Urine Protein 30 H (Neg-Trace) mg/dL Urine Glucose (UA) Normal (Normal) mg/dL - Impressions ITS Impressions Chest X-Ray 07/30/19 11:52 IMPRESSION: 1. No acute abnormality. D/ / Herson Vela MD / Herson Vela MD Interpreting Provider: Herson Vela MD Knee CT 07/30/19 13:17 IMPRESSION: 1. Moderate nonspecific right knee effusion. If there is clinical concern for septic arthritis please consider arthrocentesis. 2. Status post right total knee arthroplasty. 3. Status post ORIF of a chronic healed distal femoral fracture. D/ / Tomy Christie MD / Tomy Christie MD Interpreting Provider: Tomy Christie MD - Diagnostic Studies Chest x-ray Status: image reviewed by me (no infiltrates ) - Assessment and Plan (1) Septic arthritis Current Visit: Yes Status: Suspected Qualifiers: Septic arthritis location: knee Septic arthritis organism: due to unspecified organism Laterality: right Qualified Code(s): M00.9 - Pyogenic arthritis, unspecified (2) DVT prophylaxis Current Visit: No Status: Acute (3) Hx of TIA (transient ischemic attack) and stroke Current Visit: No Status: Acute (4) CAD (coronary artery disease) Current Visit: No Status: Chronic Qualifiers: Coronary Disease-Associated Artery/Lesion type: [place] artery [place] vs. transplanted heart: [place] heart Associated angina: without angina Qualified Code(s): I25.10 - Atherosclerotic heart disease of [place] coronary artery without angina pectoris (5) COPD (chronic obstructive pulmonary disease) Current Visit: No Status: Chronic Qualifiers: COPD type: chronic bronchitis Chronic bronchitis type: simple Qualified Code(s): J41.0 - Simple chronic bronchitis (6) HTN (hypertension) Current Visit: No Status: Chronic Qualifiers: Hypertension type: essential hypertension Qualified Code(s): I10 - Essential (primary) hypertension (7) Hypothyroid Current Visit: No Status: Chronic Qualifiers: Hypothyroidism type: acquired Qualified Code(s): E03.9 - Hypothyroidism, unspecified (8) Nausea & vomiting Current Visit: No Status: Resolved Qualifiers: Vomiting type: unspecified Vomiting Intractability: non-intractable Qualified Code(s): R11.2 - Nausea with vomiting, unspecified (9) Sepsis Current Visit: No Status: Resolved Qualifiers: Sepsis type: sepsis due to unspecified organism Sepsis acute organ dysfunction status: without acute organ dysfunction Qualified Code(s): A41.9 - Sepsis, unspecified organism (10) UTI (urinary tract infection) Current Visit: No Status: Acute Qualifiers: Urinary tract infection type: site unspecified Hematuria presence: without hematuria Qualified Code(s): N39.0 - Urinary tract infection, site not specified - Summary of Assessment and Plan Summary of Assessment and Plan: Ms. Esquivel is a 84 year old female PMH of B/L knee replacement more than 5 years ago, CAD, HLD, hypothyroidism, HTN and COPD. Patient presented to the ED due to right knee pain. Assessment: 1. Sepsis secondary to possible septic arthritis vs uti. 2. Dehydration 3. UTI 4. Hypertension 5. Hypothyroid 6. COPD 7. HLD 8. CAD 9. VTE prophylaxis Plan Patient meets sepsis criteria. - started on IV hydration with LR @75ml/hr x2 litters - vancomycin per pharmacy protocol plus ceftriaxone 1gm/IV daily - ortho consulted for possible arthrocentesis - Pain control with norco 5/325mg/PO Q6HRs PRN - started on bronchodilators Q4RT PRN. symbicort, home med. - Hold furosemide, patient dehydrated due to diarrhea and vomiting yesterday. - continue home dose of metoprolol, aspirin. - on levothyroxine 50mcg/PO daily - heparin subq for dvt prophylaxis. - Time Spent With Patient Total time spent is greater than 50% in coordination of care (as documented) at patient's floor/unit and/or counseling patient: Greater than 35 minutes (50)
[2019-07-30] MEDS: Ringers Solution, Lactated 1,000 ML IVC SCH (16:26)
[2019-07-30] MEDS: Sucralfate 1 GM TABLET PO SCH ×2 (16:28→22:01)
[2019-07-30] MEDS: *HR* HYDROcodone/Acet 5/325 mg TABLET PO PRN (16:45)
[2019-07-30] MEDS: Budesonide/Formoterol 160/4.5 1 PUFF INH IH SCH (19:59)
[2019-07-30] MEDS: *HR* Heparin 5,000 UNIT/ML VIAL SQ SCH (22:00)
[2019-07-30] MEDS: Gabapentin 300 MG CAPSULE PO SCH (22:01)
[2019-07-31] MEDS: *HR* HYDROcodone/Acet 5/325 mg TABLET PO PRN (01:17)
[2019-07-31 04:03] LABS: Basophils % 0.4 %; Eosinophils % 0.3 %; Hematocrit 35.7 % (35.3-44.9); Immature Granulocytes % 0.4 % (0-4); Lymphocytes % 14.1 %; Mean Corpuscular HGB Conc 31.1 g/dL (31.6-35.5); Mean Corpuscular Hemoglobin 28.8 pg (28.0-33.3); Mean Corpuscular Volume 92.5 fL (83.0-100.0); Mean Platelet Volume 9.6 fL (9.4-12.4); Monocytes # 0.5 K/mcL (0.0-1.3); Monocytes % 7.5 %; Neutrophils # 5.4 K/mcL (1.6-8.9); Platelet Count 211 K/mcL (140-400); Red Blood Count 3.86 M/mcL (3.82-4.97); Red Cell Distribution Width 13.5 % (11.5-14.5); Segmented Neutrophils % 77.3 %
[2019-07-31 04:05] LABS: Hemoglobin 11.1 g/dL (11.5-15.4)
[2019-07-31 04:17] LABS: BUN/Creatinine Ratio 13 (6-26); Blood Urea Nitrogen 13 mg/dL (8-23); Calcium 8.5 mg/dL (8.6-10.3); Carbon Dioxide 26 mEq/L (23-29); Chloride 105 mEq/L (98-107); Glucose 100 mg/dL (70-105); Magnesium 1.8 mg/dL (1.6-2.6); Osmolality,Calculated 284 (280-300); Potassium 3.7 mEq/L (3.5-5.1); Sodium 137 mEq/L (136-145); eGFR For African Americans > 60 (> 60); eGFR For Non-African Americans 54 (> 60)
[2019-07-31] MEDS: Ringers Solution, Lactated 1,000 ML IVC SCH (06:27)
[2019-07-31] MEDS: *HR* Heparin 5,000 UNIT/ML VIAL SQ SCH ×3 (06:29→21:20)
--- NOTE | 2019-07-31 06:52 | Orthopedics Progress Note ---
Date of Encounter: 07/31/19 Time of Encounter: 06:49 Subjective Interval history: Patient seen this morning admitted with right knee pain. Patient status post right total knee, open reduction internal fixation of right distal femur fracture. Patient presented with right knee pain and swelling. Elevated white count. Elevated ESR and CRP. CT scan shows fluid. Examination of the right knee reveals swelling no erythema, limited motion. Patient will undergo interventional radiology aspiration today. Objective Vital signs: Vital Signs Temp Pulse Resp BP Pulse Ox 07/31/19 06:24 98.9 F 51 18 95/46 92 07/31/19 05:31 99.2 F 88 20 101/54 96 07/30/19 22:37 98.8 F 77 20 129/67 98 07/30/19 19:59 16 98 07/30/19 18:47 98.1 F 78 20 107/64 97 07/30/19 16:55 98.2 F 87 16 149/69 95 07/30/19 13:39 93 07/30/19 13:00 90 18 119/57 95 07/30/19 12:30 95 18 127/62 97 07/30/19 11:50 100.6 F H 108 18 137/66 93 Intake and Output 07/30/19 07/30/19 07/31/19 15:59 23:59 07:59 Intake Total 1260 / 1770 510 / 1770 1000 / 1000 Balance 1260 / 1770 510 / 1770 1000 / 1000 Intake: IV Fluids 1260 / 1260 1000 / 1000 0.9 % Sodium Chloride 1,000 ML 1000 / 1000 @ 999 mls/hr IVC .Q1H1M ONE Rx# :[id number] Lactated Ringers 1,000 ML @ 75 1000 / 1000 mls/hr IVC .[id number] [facility] Rx#: [id number] Rocephin 1,000 MG In Water for 10 / 10 inj. (sterile) 10 ML @ 600 mls/ hr IVP ONCE ONE Rx#:[id number] Vancocin 1,000 MG In 0.9 % 250 / 250 Sodium Chloride 250 ML @ 167 mls/hr IVPB ONCE ONE Rx#: [id number] Oral 510 / 510 Other: # Voids 1 1 1 Weight 68.039 kg - Labs CBC & BMP: 07/31/19 03:37 07/31/19 03:37 Labs: Abnormal lab results WBC 13.6 K/mcL (4.3-11.1) H 07/30/19 12:06 Hgb 11.1 g/dL (11.5-15.4) L D 07/31/19 03:37 MCHC 31.1 g/dL (31.6-35.5) L 07/31/19 03:37 Neutrophils # 12.2 K/mcL (1.6-8.9) H 07/30/19 12:06 ESR 36 mm/hr (0-15) H 07/30/19 12:06 PT 12.2 Seconds (9.4-12.1) H 07/30/19 12:06 Est GFR ( Amer) 56 (> 60) L 07/30/19 12:06 Est GFR (Non-Af Amer) 54 (> 60) L 07/31/19 03:37 Glucose 114 mg/dL (70-105) H 07/30/19 12:06 Calcium 8.5 mg/dL (8.6-10.3) L 07/31/19 03:37 Total Bilirubin 1.1 mg/dL (0.3-1.0) H 07/30/19 12:06 C-Reactive Protein 111 mg/L (Less than 10) H 07/30/19 12:06 Ur Specimen Adequacy See below A 07/30/19 14:40 Urine Clarity Turbid (Clear) A 07/30/19 14:40 Ur Specific [place] > 1.030 (1.010-1.025) H 07/30/19 14:40 Urine Protein 30 mg/dL (Neg-Trace) H 07/30/19 14:40 Urine Blood Moderate (Negative) H 07/30/19 14:40 Ur Leukocyte Esterase Moderate (Negative) H 07/30/19 14:40 Urine Microscopic WBC 3-5 per hpf (0-3) H 07/30/19 14:40 Ur Squamous Epith Cells Many per lpf (None-Few) H 07/30/19 14:40 Urine Bacteria Moderate per hpf (None-Few) H 07/30/19 14:40 Ur Culture Indicated? YES (NO) A 07/30/19 14:40 Consult Discharge Plan - Plan Referrals: Mihai Medrano MD [Primary Care Provider] -
[2019-07-31] MEDS: Budesonide/Formoterol 160/4.5 1 PUFF INH IH SCH ×2 (07:22→20:19)
[2019-07-31] MEDS: Sucralfate 1 GM TABLET PO SCH ×4 (08:48→21:20)
[2019-07-31] MEDS: Famotidine 20 MG TABLET PO SCH (08:49)
[2019-07-31] MEDS: Metoprolol XL (24 HR) Succ 50 MG TAB.ER.24H PO SCH (08:49)
[2019-07-31] MEDS ORDERED: cefTRIAXone 1,000 MG in Water for inj. (sterile) 10 ML IVP SCH (09:00)
[2019-07-31] MEDS ORDERED: Furosemide 20 MG TABLET PO SCH (09:00)
[2019-07-31] MEDS: Aspirin Enteric Coated 81 MG Tablet PO SCH (09:08)
--- NOTE | 2019-07-31 10:16 | Internal Med Progress Note ---
Hospitalist Progress Note - Encounter Date of Encounter: 07/31/19 Time of Encounter: 10:14 - Subjective Interval History: I have seen and evaluated the patient at bedside. Patient reported feeling better today, pain on her right knee has decreased. denies chest pain, nausea, vomiting or abdominal pain. denies shortness of breath. - Exam Vitals: Temp Pulse Resp BP Pulse Ox 98.9 F 51 18 95/46 95 07/31/19 06:24 07/31/19 06:24 07/31/19 07:23 07/31/19 06:24 07/31/19 07:23 Exam: Vitals: Reviewed General: Alert and oriented x4. In no distress Cardiovascular: RRR, normal S1 & S2, no rubs, murmurs or gallops. Lungs: CTA b/l, no wheezes or crackles. Abdomen: Soft, non-tender, no rigidity. NABS in all 4 quadrants. Extremities: mild edema and mild tenderness on the right knee. Neurological: No focal neurological abnormalities. Rest of the physical exam is non contributory - Assessment and Plan (1) Septic arthritis Current Visit: Yes Status: Suspected (2) DVT prophylaxis Current Visit: No Status: Acute (3) Hx of TIA (transient ischemic attack) and stroke Current Visit: No Status: Acute (4) CAD (coronary artery disease) Current Visit: No Status: Chronic (5) COPD (chronic obstructive pulmonary disease) Current Visit: No Status: Chronic (6) HTN (hypertension) Current Visit: No Status: Chronic (7) Hypothyroid Current Visit: No Status: Chronic (8) Sepsis Current Visit: No Status: Resolved (9) UTI (urinary tract infection) Current Visit: Yes Status: Acute - Summary of Assessment and Plan Summary of Assessment and Plan: Ms. Esquivel is a 84 year old female PMH of B/L knee replacement more than 5 years ago, CAD, HLD, hypothyroidism, HTN and COPD. Patient presented to the ED due to right knee pain. Assessment: 1. Sepsis (resolved) secondary to possible septic arthritis vs uti. 2. Dehydration (resolved) 3. UTI 4. Hypertension 5. Hypothyroid 6. COPD 7. HLD 8. CAD 9. VTE prophylaxis Plan Blood culture: no growth to date urine culture: incubating. Scheduled for IR guided arthrocentesis - send fluids for analysis - c/w vancomycin per pharmacy protocol plus ceftriaxone 1gm/IV daily - ID consulted for antibiotics management. as patient might need and extended c ourse of IV antibiotics. - ortho recommendations appreciated - On norco 5/325mg/PO Q6HRs PRN for pain control - Bronchodilators Q4RT PRN. symbicort. - BP is well controlled on metoprolol. - on aspirin 81mg/PO daily. - will resume home dose of furosemide 20mg/PO daily. - c/w levothyroxine 50mcg/PO daily - heparin subq for dvt prophylaxis. Disposition: - Patient to remain in the hospital due on broad spectrum IV antibiotics. scheduled for IR guided arthrocentesis. - Time Spent with Patient Total time spent is greater than 50% in coordination of care (as documented) at patient's floor/unit and/or counseling patient: Greater than 35 minutes (40) Plan of Care Discussed with: patient (and the nurse.) Internal Medicine: Result - Labs CBC & Chem 7: 07/31/19 03:37 07/31/19 03:37 Labs: Short CBC 07/30/19 07/31/19 Range/Units 12:06 03:37 WBC 13.6 H 7.0 (4.3-11.1) K/mcL Hgb 13.9 11.1 L D (11.5-15.4) g/dL Hct 43.5 35.7 (35.3-44.9) % Plt Count 239 211 (140-400) K/mcL Neutrophils # 12.2 H 5.4 (1.6-8.9) K/mcL BMP 07/30/19 07/31/19 12:06 03:37 Sodium 136 137 Potassium 4.1 3.7 Chloride 101 105 Carbon Dioxide 23 26 BUN 15 13 Creatinine 1.12 0.98 Glucose 114 H 100 Calcium 9.1 8.5 L Cardiac Enzymes 07/30/19 Range/Units 12:06 Troponin I < 0.03 (< 0.04) ng/mL Liver Function 07/30/19 Range/Units 12:06 Total Bilirubin 1.1 H (0.3-1.0) mg/dL Direct Bilirubin 0.2 (0.0-0.2) mg/dL AST 14 (13-39) Units/L ALT 8 (7-52) Units/L Alkaline Phosphatase 59 (34-104) Units/L Albumin 4.1 (3.5-5.7) g/dL Urine 07/30/19 Range/Units 14:40 Urine Color Yellow (Yellow) Urine Clarity Turbid A (Clear) Urine pH 6.0 (5.0-8.0) pH Units Ur Specific [place] > 1.030 H (1.010-1.025) Urine Protein 30 H (Neg-Trace) mg/dL Urine Glucose (UA) Normal (Normal) mg/dL - ABG Interpretation ABG results: PT/INR, D-dimer PT 12.2 Seconds (9.4-12.1) H 07/30/19 12:06 - Impressions Impressions Chest X-Ray 07/30/19 11:52 IMPRESSION: 1. No acute abnormality. D/ / Herson Vela MD / Herson Vela MD Interpreting Provider: Herson Vela MD Knee CT 07/30/19 13:17 IMPRESSION: 1. Moderate nonspecific right knee effusion. If there is clinical concern for septic arthritis please consider arthrocentesis. 2. Status post right total knee arthroplasty. 3. Status post ORIF of a chronic healed distal femoral fracture. D/ / Tomy Christie MD / Tomy Christie MD Interpreting Provider: Tomy Christie MD Consult Discharge Plan - Plan Referrals: Mihai Medrano MD [Primary Care Provider] - (1) Septic arthritis Qualifiers: Septic arthritis location: knee Septic arthritis organism: due to unspecified organism Laterality: right Qualified Code(s): M00.9 - Pyogenic arthritis, unspecified (4) CAD (coronary artery disease) Qualifiers: Coronary Disease-Associated Artery/Lesion type: [place] artery [place] vs. transplanted heart: [place] heart Associated angina: without angina Qualified Code(s): I25.10 - Atherosclerotic heart disease of [place] coronary artery without angina pectoris (5) COPD (chronic obstructive pulmonary disease) Qualifiers: COPD type: chronic bronchitis Chronic bronchitis type: simple Qualified Code(s): J41.0 - Simple chronic bronchitis (6) HTN (hypertension) Qualifiers: Hypertension type: essential hypertension Qualified Code(s): I10 - Essential (primary) hypertension (7) Hypothyroid Qualifiers: Hypothyroidism type: acquired Qualified Code(s): E03.9 - Hypothyroidism, unspecified (8) Sepsis Qualifiers: Sepsis type: sepsis due to unspecified organism Sepsis acute organ dysfunction status: without acute organ dysfunction Qualified Code(s): A41.9 - Sepsis, unspecified organism (9) UTI (urinary tract infection) Qualifiers: Urinary tract infection type: site unspecified Hematuria presence: without hematuria Qualified Code(s): N39.0 - Urinary tract infection, site not specified
--- NOTE | 2019-07-31 11:46 | Infectious Disease Consult ---
Infectious Disease-Consult - Encounter Date/Time Date of Encounter: 07/31/19 Time of Encounter: 11:44 - Data of Consult Patient: new to practice Reason for consult: "possible septic arthritis of the right knee" Consult date: 07/31/19 Requesting Physician: Jessica Donaldson MD Primary Care Provider: Mihai Medrano MD - HPI HPI: Ms. Esquivel is an 84-year-old female with past medical history of COPD, CAD, GERD , GI bleed, hyperlipidemia, hypertension, osteoporosis, and remote history of bilateral total knee replacements. The patient was admitted to the hospital 07/30/19 for UTI and septic arthritis. We are consulted 07/31/19 for further workup and treatment recommendations for possible septic arthritis of the right knee. Briefly, the patient is an 84-year-old female with past medical history as stated above. The patient presented to the emergency department with 2 day history of right knee pain had progressively been getting worse. She also reported fever as well as diarrhea and vomiting. Upon arrival, she is febrile and tachycardic. She was otherwise hemodynamically stable. She had leukocytosi s with neutrophilic predominance. LFTs, lactic acid, troponin, and renal function were normal. Urinalysis was positive, but did appear contaminated and the culture is pending. She had chest x-ray that was negative. CT of the right lower extreme showed a moderate right knee effusion. ESR is elevated at 36 with a CRP of 111. Blood cultures were obtained 2 sets are pending. She was started empirically on vancomycin and Rocephin and was admitted to the hospital for further evaluation. Since admission, the patient's white blood cell count is normalized. She has been afebrile and her tachycardia has resolved. She was evaluated by orthopedics who has recommended consultation to the interventional radiology team for the patient undergoing right knee aspiration. Currently, she is on vancomycin and Rocephin. We have been asked to evaluate and make further recommendations. During my exam today, the patient states she had increased knee pain a few days prior to admission. She states the day she came in she developed very severe right knee pain and swelling to the point she was unable to ambulate. She states she had diarrhea and vomiting the night before, but it had resolved when she woke up on the day of admission. She report subjective fevers and chills at home, but denies any rigors. Denies any headache or neck pain. Reports chronic shortness of breath for which she wears O2 at all times and that was at baseline. Denies chest pain or cough. Denies abdominal pain or urinary complaints. Denies oral thrush or skin rashes. She denies any known trauma or injury to the right knee. States her knee was warm to touch and mildly erythematous prior to admission. Today, she states the swelling and redness is improved. She states her appetite is better. The patient lives at home with her daughter. She typically ambulates with a walker. Denies chronic infectious diseases. Denies tobacco, alcohol, illicit drug use. Denies recent travel outside the [facility]. - ROS Review of Systems: All systems reviewed and no additional remarkable complaints except as stated. - Results CBC & Chem 7: 07/31/19 03:37 07/31/19 03:37 - Exam Vitals: Temp Pulse Resp BP Pulse Ox 98.3 F 86 18 135/61 92 07/31/19 10:56 07/31/19 10:56 07/31/19 10:56 07/31/19 10:56 07/31/19 10:56 Exam: Head: Atraumatic, normal inspection, normocephalic. Eye: EOMI, PERRLA, no scleral icterus noted. ENT: Mucous membranes moist. No odontogenic infection noted. Neck: Normal inspection, no meningismus. Respiratory: Clear to auscultation. No rales, respiratory distress, rhonchi, or wheezes noted. Cardiovascular: Regular rate and rhythm, S1 and S2 audible. No murmurs, rubs, or gallops. GI: Soft, nondistended, normal bowel sounds. Non-tender. Extremities: Right knee swelling and tender to touch. ROM painful. No warmth or erythema noted. Back: Normal inspection. No vertebral tenderness noted. Neurological: Alert, oriented 3, no focal deficits. Psychiatric: normal affect, normal mood. Skin: Dry, intact, warm. Normal color. No rashes. Cyclobenzaprine [Flexeril] 10 mg PO HS PRN 04/01/16 [History] Esomeprazole Magnesium [Nexium] 40 mg PO DAILY PRN 04/01/16 [History] Famotidine [Pepcid] 20 mg PO DAILY 04/01/16 [History] Furosemide [Lasix] 20 mg PO DAILY PRN 04/01/16 [History] Gabapentin [Neurontin] 300 mg PO TID 04/01/16 [History] Sucralfate [Carafate] 1 gm PO BID 04/01/16 [History] Albuterol Sulfate [Proair Hfa] 2 puff IH Q4HR 03/15/18 [History] Fluticasone/Salmeterol [Advair 500-50 Diskus] 1 puff IH DAILY 03/15/18 [History] Levothyroxine Sodium 50 mcg PO QAM 03/15/18 [History] Aspirin [Lo-Dose Aspirin EC] 81 mg PO DAILY 05/31/19 [History] Hyoscyamine SL [Levsin Sl] 0.125 mg SL Q4HR PRN 05/31/19 [History] Ipratropium [place] 2 spray NS TID PRN 07/31/19 [History] Meclizine HCl [Verticalm] 25 mg PO DAILY PRN 07/31/19 [History] Memantine HCl 10 mg PO BID 07/31/19 [History] Metoprolol Succinate [Toprol Xl] 50 mg PO BID 07/31/19 [History] Sertraline [Zoloft] 150 mg PO DAILY 07/31/19 [History] Allergy/AdvReac Type Severity Reaction Status Date / Time sulfamethoxazole Allergy Hives Verified 07/31/19 14:47 [From Bactrim] trimethoprim [From Bactrim] Allergy Hives Verified 07/31/19 14:47 - Assessment and Plan (1) Sepsis Current Visit: No Status: Resolved The patient had 3 sepsis criteria on admission. Secondary to right knee infection. Improved. Afebrile overnight. Tachycardia resolved. White blood cell count normalized. Blood cultures drawn 07/30/19 are pending 2 sets. Qualifiers: Sepsis type: sepsis due to unspecified organism Sepsis acute organ dysfunction status: without acute organ dysfunction Qualified Code(s): A41.9 - Sepsis, unspecified organism SNOMED Code(s): 79770409 (2) Effusion, right knee Current Visit: Yes Status: Acute Location: Right knee. Etiology unclear. Infectious vs. inflammatory vs. other. CT right knee showed a moderate right knee effusion. ESR 36, CRP 111. The patient does have hardware in the knee. Ortho consulted. Recommended IR to evaluate for arthrocentesis, but the patient has already been on antibiotics for a day. Arthrocentesis scheduled for later today. Currently on Vanc and Rocephin. SNOMED Code(s): 673789879 (3) Septic arthritis Current Visit: Yes Status: Suspected Qualifiers: Septic arthritis location: knee Septic arthritis organism: due to unspeci fied organism Laterality: right Qualified Code(s): M00.9 - Pyogenic arthritis, unspecified SNOMED Code(s): 412909029 (4) UTI (urinary tract infection) Current Visit: Yes Status: Ruled-out Asymptomatic. Urinalysis appears contaminated (many epithelial cells). No indication to treat even if the culture does come back positive. Qualifiers: Urinary tract infection type: site unspecified Hematuria presence: without hematuria Qualified Code(s): N39.0 - Urinary tract infection, site not specified SNOMED Code(s): 52448096 (5) History of total knee replacement Current Visit: Yes Status: Acute Last surgery 10 years ago. Qualifiers: Laterality: bilateral Qualified Code(s): Z96.653 - Presence of artificial k nee joint, bilateral SNOMED Code(s): 6895008203002, 2430983880103, 51561823302939 (6) CAD (coronary artery disease) Current Visit: No Status: Chronic Qualifiers: Coronary Disease-Associated Artery/Lesion type: [place] artery [place] vs. transplanted heart: [place] heart Associated angina: without angina Qualified Code(s): I25.10 - Atherosclerotic heart disease of [place] coronary artery wit hout angina pectoris SNOMED Code(s): 35131428 (7) COPD (chronic obstructive pulmonary disease) Current Visit: No Status: Chronic Qualifiers: COPD type: chronic bronchitis Chronic bronchitis type: simple Qualified Code(s): J41.0 - Simple chronic bronchitis SNOMED Code(s): 27480756 (8) GERD (gastroesophageal reflux disease) Current Visit: No Status: Chronic Qualifiers: Esophagitis presence: esophagitis presence not specified Qualified Code(s): K21.9 - Gastro-esophageal reflux disease without esophagitis SNOMED Code(s): 499002522 (9) Hypothyroid Current Visit: No Status: Chronic Qualifiers: Hypothyroidism type: acquired Qualified Code(s): E03.9 - Hypothyroidism, unspecified SNOMED Code(s): 30868053 - Recommendations Recommendations: Check uric acid. Await blood cultures to finalize. Send synovial fluid for cell count with differential, culture (Aerobic, anaerobic, AFB, fungal), and crystals. Continue Rocephin, but increase dose to 2 grams IV daily. Continue Vancomycin IV. Pharmacy to dose. Goal trough ~15. Duration of treatment depends on the clinical picture. Monitor renal function and for drug toxicity and dose-adjust antibiotics. Past Med Surg Social Fam HX - Past Medical History Attestation: Yes The following information was validated with the patient. Source: patient, old records reviewed, nursing notes reviewed Medical history: COPD, coronary artery disease, GERD, GI bleed, hyperlipidemia, hypertension, osteoporosis, thyroid disease, TIA Additional medical history: osteoarthritis - diverticulosis - hypokalemia - neurapathy - RLS - anemia Psychiatric history: depression - Past Surgical History Surgical History: angioplasty/stent Additional surgical history: EGD - Colonoscopy - x-lap -heart cath with stent. bi-lat knee replacement. Right femur [id number]-7-7 years ago - Social History Smoking Status: Former smoker Smokeless Tobacco Status: No Alcohol use: none Drug use: none - Family History Brother Family Member Ethnicity: Non- Living Status: Hx Family Cardiac Disorders: Yes (CHF) Sister Family Member Ethnicity: Non- Living Status: Hx Family Cardiac Disorders: Yes (NV) Hx Family Neurologic Disorders: Yes (CVA) Father Family Member Ethnicity: Non- Living Status: Hx Family Cardiac Disorders: Yes (NV) Hx Family Endocrine Disorder: Yes (DM) Mother Family Member Ethnicity: Non- Living Status: Hx Family Cancer: Yes (Lung/Brain) Consult Discharge Plan - Plan Referrals: Mihai Medrano MD [Primary Care Provider] - - Attending Attestation I have personally performed a face to face evaluation on this patient. I have reviewed and agree with the care plan. History and Exam by me shows: X This is an addendum to original report dictated by Airam Bonilla CNP. Please refer to Airam's note for full detail. Assessment and plan: Sepsis likely secondary to #2 Right knee effusion etiology not clear. Concern for infectious etiology. Patient had history of gout but she tells me that always happens in her feet never that her knee before. Urinary tract infection Coronary artery disease COPD Recommendations Patient was already started empirically on vancomycin and Rocephin prior to arthrocentesis. Arthrocentesis scheduled tomorrow by interventional radiology. Await to see what the cell count is, Gram stain and cultures and we will go from there.
[2019-07-31 15:42] LABS: Source,Synovial Fluid right knee
--- NOTE | 2019-07-31 15:58 | Electrocardiograph Report ---
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
[2019-07-31 17:31] LABS: Color,Synovial Fluid Straw (Straw)
[2019-07-31 17:32] LABS: Appearance,Synovial Fluid Cloudy (Clear-Hazy)
[2019-07-31 17:36] LABS: Lymphocytes,Synovial Fluid 0 %
[2019-07-31] MEDS: Gabapentin 300 MG CAPSULE PO SCH (21:20)
[2019-08-01] MEDS: *HR* Heparin 5,000 UNIT/ML VIAL SQ SCH ×3 (05:21→21:09)
[2019-08-01] MEDS: Famotidine 20 MG TABLET PO SCH (07:49)
[2019-08-01] MEDS: Metoprolol XL (24 HR) Succ 50 MG TAB.ER.24H PO SCH (07:49)
[2019-08-01] MEDS: Furosemide 20 MG TABLET PO SCH (07:49)
[2019-08-01] MEDS: Aspirin Enteric Coated 81 MG Tablet PO SCH (07:49)
[2019-08-01] MEDS: Sucralfate 1 GM TABLET PO SCH ×4 (07:49→21:09)
[2019-08-01] MEDS ORDERED: Aminoglycoside Consult 1 EACH MC ONE (08:11)
[2019-08-01] MEDS ORDERED: cefTRIAXone 2,000 MG in Water for inj. (sterile) 20 ML IVP SCH (09:00)
[2019-08-01] MEDS: Budesonide/Formoterol 160/4.5 1 PUFF INH IH SCH ×2 (10:22→20:27)
--- NOTE | 2019-08-01 10:49 | Infectious Disease Progress No ---
ID Progress Note Date of Encounter: 08/01/19 Time of Encounter: 10:46 - Subjective Subjective: Patient seen and examined. No acute events noted overnight. Patient states overall she feels well. Reports significant improvement in the pain in her right knee after having the fluid drained yesterday. Denies fevers, chills, rigors. Denies chest pain, shortness of breath, or cough. Denies nausea, vomiting, diarrhea, constipation. Denies abdominal pain or urinary complaints. Denies oral thrush or skin rashes. States her last bowel movement was yesterday. States her appetite is very good. - Objective CBC & Chem 7: 08/02/19 06:12 08/02/19 06:12 - Exam Vitals: Temp Pulse Resp BP Pulse Ox 98.4 F 73 18 108/53 98 08/01/19 08:06 08/01/19 08:06 08/01/19 10:25 08/01/19 08:06 08/01/19 10:25 Exam: Head: Atraumatic, normal inspection, normocephalic. Eye: EOMI, PERRLA, no scleral icterus noted. ENT: Mucous membranes moist. No odontogenic infection noted. Neck: Normal inspection, no meningismus. Respiratory: Clear to auscultation. No rales, respiratory distress, rhonchi, or wheezes noted. Cardiovascular: Regular rate and rhythm, S1 and S2 audible. No murmurs, rubs, or gallops. GI: Soft, nondistended, normal bowel sounds. Non-tender. Extremities: Right knee with minimal swelling. Minimal tenderness with palpation of the medial aspect. ROM improved. No warmth or erythema noted. Back: Normal inspection. No vertebral tenderness noted. Neurological: Alert, oriented 3, no focal deficits. Psychiatric: normal affect, normal mood. Skin: Dry, intact, warm. Normal color. No rashes. - Assessment and Plan (1) Sepsis Current Visit: No Status: Resolved The patient had 3 sepsis criteria on admission. Secondary to right knee infection. Improved. Afebrile overnight. Tachycardia resolved. White blood cell count normalized. Blood cultures drawn 07/30/19 are no growth to date 2 sets. Qualifiers: Sepsis type: sepsis due to unspecified organism Sepsis acute organ dysfunction status: without acute organ dysfunction Qualified Code(s): A41.9 - Sepsis, unspecified organism SNOMED Code(s): 73374971 (2) Effusion, right knee Current Visit: Yes Status: Acute Location: Right knee. Etiology unclear. Infectious vs. inflammatory vs. other. CT right knee showed a moderate right knee effusion. ESR 36, CRP 111. The patient does have hardware in the knee. Ortho consulted. Recommended IR to evaluate for arthrocentesis, but the patient has already been on antibiotics for a day. Status post arthrocentesis by interventional radiology 07/31/19. Total neutrophil count not performed due to the viscosity of the fluid. Approximately 14 mL of turbid straw-colored gelatinous fluid was aspirated. Gram stain is negative. Cultures are pending. No crystals were seen. Currently on Vanc and Rocephin. SNOMED Code(s): 043604150 (3) Septic arthritis Current Visit: Yes Status: Suspected Qualifiers: Septic arthritis location: knee Septic arthritis organism: due to unspecified organism Laterality: right Qualified Code(s): M00.9 - Pyogenic arthritis, unspecified SNOMED Code(s): 635881636 (4) UTI (urinary tract infection) Current Visit: Yes Status: Ruled-out Asymptomatic. Urinalysis appears contaminated (many epithelial cells). Urine culture negative. Qualifiers: Urinary tract infection type: site unspecified Hematuria presence: without hematuria Qualified Code(s): N39.0 - Urinary tract infection, site not specified SNOMED Code(s): 75715878 (5) History of total knee replacement Current Visit: Yes Status: Acute Last surgery 10 years ago. Qualifiers: Laterality: bilateral Qualified Code(s): Z96.653 - Presence of artificial knee joint, bilateral SNOMED Code(s): 7191574934204, 3068215204612, 66052656776341 (6) CAD (coronary artery disease) Current Visit: No Status: Chronic Qualifiers: Coronary Disease-Associated Artery/Lesion type: [place] artery [place] vs. transplanted heart: [place] heart Associated angina: without angina Qualified Code(s): I25.10 - Atherosclerotic heart disease of [place] coronary artery w ithout angina pectoris SNOMED Code(s): 48339833 (7) COPD (chronic obstructive pulmonary disease) Current Visit: No Status: Chronic Qualifiers: COPD type: chronic bronchitis Chronic bronchitis type: simple Qualified Code(s): J41.0 - Simple chronic bronchitis SNOMED Code(s): 53994332 (8) GERD (gastroesophageal reflux disease) Current Visit: No Status: Chronic Qualifiers: Esophagitis presence: esophagitis presence not specified Qualified Code(s): K21.9 - Gastro-esophageal reflux disease without esophagitis SNOMED Code(s): 962505638 (9) Hypothyroid Current Visit: No Status: Chronic Qualifiers: Hypothyroidism type: acquired Qualified Code(s): E03.9 - Hypothyroidism, unspecified SNOMED Code(s): 79852952 - Recommendations Recommendations: Await blood cultures to finalize. Await synovial fluid cultures to finalize. Discontinue Vanc and Rocephin and observe off antibiotics. Low index of suspicion for infection at this point given the improvement in the patient's symptoms after drainage of the joint fluid and the fact that the gram stain is negative. Consult Discharge Plan - Plan Referrals: Mihai Medrano MD [Primary Care Provider] - - Attending Attestation I have personally performed a face to face evaluation on this patient. I have reviewed and agree with the care plan. History and Exam by me shows: Assessment and plan: 1.Sepsis likely secondary to #2 2.Right knee effusion etiology not clear. Concern for infectious etiology. Patient had history of gout but she tells me that always happens in her feet never that her 3.knee before. 4.Urinary tract infection 5.Coronary artery disease 6.COPD Recommendations Patient doing well clinically. Arthrocentesis cell count was not performed due to cell clumping Gram stain and cultures are no growth so far No crystals Patient continues to do vancomycin and Rocephin We will probably stop antibiotics and see if an infection revealed itself
--- NOTE | 2019-08-01 13:46 | Internal Med Progress Note ---
Hospitalist Progress Note - Encounter Date of Encounter: 08/01/19 Time of Encounter: 13:39 - Subjective Interval History: I have seen and evaluated the patient at bedside. Patient reported the pain on her knee has resolved, denies chest pain, nausea or vomiting. denies diarrhea or loose stool today. - Exam Vitals: Temp Pulse Resp BP Pulse Ox 98.1 F 70 16 129/62 91 08/01/19 12:17 08/01/19 12:17 08/01/19 12:17 08/01/19 12:08/01/19 12:17 Exam: Vitals: Reviewed General: Alert and oriented x4. In no distress Cardiovascular: RRR, normal S1 & S2, no rubs, murmurs or gallops. Lungs: CTA b/l, no wheezes or crackles. Abdomen: Soft, non-tender, no rigidity. NABS in all 4 quadrants. Extremities: no edema or tenderness on the right knee Neurological: No focal neurological abnormalities. Rest of the physical exam is non contributory - Assessment and Plan (1) Septic arthritis Current Visit: Yes Status: Suspected (2) DVT prophylaxis Current Visit: No Status: Acute (3) Hx of TIA (transient ischemic attack) and stroke Current Visit: No Status: Acute (4) CAD (coronary artery disease) Current Visit: No Status: Chronic (5) COPD (chronic obstructive pulmonary disease) Current Visit: No Status: Chronic (6) HTN (hypertension) Current Visit: No Status: Chronic (7) Hypothyroid Current Visit: No Status: Chronic (8) Sepsis Current Visit: No Status: Resolved (9) UTI (urinary tract infection) Current Visit: Yes Status: Ruled-out - Summary of Assessment and Plan Summary of Assessment and Plan: Ms. Esquivel is a 84 year old female PMH of B/L knee replacement more than 5 years ago, CAD, HLD, hypothyroidism, HTN and COPD. Patient presented to the ED due to right knee pain. Assessment: 1. Sepsis (resolved) secondary to possible septic arthritis vs uti. 2. Dehydration (resolved) 3. Hypertension 4. Hypothyroid 5. COPD 6. HLD 7. CAD 8. VTE prophylaxis Plan Blood culture: no growth to date urine culture: no growth patient s/p IR guided arthorcentesis. synovial fluids gram stain: no bacteria observed. pending anaerobic culture - ID recommended to dc IV antibiotics and monitor clinically. low suspicious septic arthritis as synovial fluid gram stam: no bacteria was observed. - ID recommendations appreciated. - ortho recommendations appreciated - c/w norco 5/325mg/PO Q6HRs PRN for pain control - On Bronchodilators Q4RT PRN. symbicort. - BP is well controlled on metoprolol. and furosemide 20mg/PO daily. - c/w aspirin 81mg/PO daily. - c/w levothyroxine 50mcg/PO daily - heparin subq for dvt prophylaxis. Disposition: - Patient to remain in the hospital pending final synovial fluid analysis result. potential discharge tomorrow. - Time Spent with Patient Total time spent is greater than 50% in coordination of care (as documented) at patient's floor/unit and/or counseling patient: Greater than 35 minutes (40) Plan of Care Discussed with: patient (her son at bedside and the nurse.) Internal Medicine: Result - Labs CBC & Chem 7: 07/31/19 03:37 07/31/19 03:37 - ABG Interpretation ABG results: PT/INR, D-dimer PT 12.2 Seconds (9.4-12.1) H 07/30/19 12:06 - Impressions Impressions Aspiration 07/31/19 14:00 IMPRESSION: 1. Successful right knee ultrasound-guided aspiration of 14 mL of turbid straw-colored gelatinous fluid. This will be sent to microbiology for evaluation. 2. Fluid specimen culture and sensitivity orders were placed by the ordering service. 3. Complete aspiration of the mild right knee effusion. D/ : / 07/31/2019 15:56:19 Jeb Medina MD / ronnie Interpreting Provider: Jeb Medina MD Consult Discharge Plan - Plan Referrals: Mihai Medrano MD [Primary Care Provider] - (1) Septic arthritis Qualifiers: Septic arthritis location: knee Septic arthritis organism: due to unspecified organism Laterality: right Qualified Code(s): M00.9 - Pyogenic arthritis, unspecified (4) CAD (coronary artery disease) Qualifiers: Coronary Disease-Associated Artery/Lesion type: [place] artery [place] vs. transplanted heart: [place] heart Associated angina: without angina Qualified Code(s): I25.10 - Atherosclerotic heart disease of [place] coronary artery without angina pectoris (5) COPD (chronic obstructive pulmonary disease) Qualifiers: COPD type: chronic bronchitis Chronic bronchitis type: simple Qualified Code(s): J41.0 - Simple chronic bronchitis (6) HTN (hypertension) Qualifiers: Hypertension type: essential hypertension Qualified Code(s): I10 - Essential (primary) hypertension (7) Hypothyroid Qualifiers: Hypothyroidism type: acquired Qualified Code(s): E03.9 - Hypothyroidism, unspecified (8) Sepsis Qualifiers: Sepsis type: sepsis due to unspecified organism Sepsis acute organ dysfunction status: without acute organ dysfunction Qualified Code(s): A41.9 - Sepsis, unspecified organism (9) UTI (urinary tract infection) Qualifiers: Urinary tract infection type: site unspecified Hematuria presence: without hematuria Qualified Code(s): N39.0 - Urinary tract infection, site not specified
[2019-08-01] MEDS: Ipratropium/Albuterol Neb 3 ML IH PRN (20:28)
[2019-08-01] MEDS: Gabapentin 300 MG CAPSULE PO SCH (21:09)
[2019-08-02] MEDS: *HR* Heparin 5,000 UNIT/ML VIAL SQ SCH ×3 (05:18→21:22)
[2019-08-02 06:24] LABS: Mean Corpuscular HGB Conc 31.4 g/dL (31.6-35.5); Mean Corpuscular Hemoglobin 29.5 pg (28.0-33.3); Mean Corpuscular Volume 93.8 fL (83.0-100.0); Mean Platelet Volume 9.5 fL (9.4-12.4); Platelet Count 233 K/mcL (140-400); Red Blood Count 3.73 M/mcL (3.82-4.97); Red Cell Distribution Width 13.3 % (11.5-14.5); White Blood Count 4.6 K/mcL (4.3-11.1)
[2019-08-02 06:44] LABS: BUN/Creatinine Ratio 13 (6-26); Blood Urea Nitrogen 13 mg/dL (8-23); Calcium 8.5 mg/dL (8.6-10.3); Carbon Dioxide 27 mEq/L (23-29); Chloride 105 mEq/L (98-107); Glucose 100 mg/dL (70-105); Osmolality,Calculated 288 (280-300); Potassium 3.9 mEq/L (3.5-5.1); Sodium 139 mEq/L (136-145); eGFR For African Americans > 60 (> 60); eGFR For Non-African Americans 55 (> 60)
[2019-08-02] MEDS: Budesonide/Formoterol 160/4.5 1 PUFF INH IH SCH ×2 (07:34→21:11)
[2019-08-02] MEDS: Metoprolol XL (24 HR) Succ 50 MG TAB.ER.24H PO SCH (08:10)
[2019-08-02] MEDS: Furosemide 20 MG TABLET PO SCH (08:10)
[2019-08-02] MEDS: Sucralfate 1 GM TABLET PO SCH ×4 (08:11→21:21)
[2019-08-02] MEDS: Aspirin Enteric Coated 81 MG Tablet PO SCH (08:11)
[2019-08-02] MEDS: Famotidine 20 MG TABLET PO SCH (08:11)
--- NOTE | 2019-08-02 10:35 | Infectious Disease Progress No ---
ID Progress Note Date of Encounter: 08/02/19 Time of Encounter: 09:35 - Subjective Subjective: Patient seen and examined. No acute events noted overnight. Patient states overall she feels well. Reports significant improvement in the pain in her right knee after having the fluid drained, but states it was a little stiff this morning. Denies fevers, chills, rigors. Denies chest pain, shortness of breath, or cough. Denies nausea, vomiting, diarrhea, constipation. Denies ab dominal pain or urinary complaints. Denies oral thrush or skin rashes. States her last bowel movement was this morning. States her appetite is very good. - Objective CBC & Chem 7: 08/03/19 05:30 08/03/19 05:30 - Exam Vitals: Temp Pulse Resp BP Pulse Ox 98.4 F 69 16 114/66 93 08/02/19 06:35 08/02/19 06:35 08/02/19 06:35 08/02/19 06:35 08/02/19 07:34 Exam: Head: Atraumatic, normal inspection, normocephalic. Eye: EOMI, PERRLA, no scleral icterus noted. ENT: Mucous membranes moist. No odontogenic infection noted. Neck: Normal inspection, no meningismus. Respiratory: Clear to auscultation. No rales, respiratory distress, rhonchi, or wheezes noted. Cardiovascular: Regular rate and rhythm, S1 and S2 audible. No murmurs, rubs, or gallops. GI: Soft, nondistended, normal bowel sounds. Non-tender. Extremities: Right knee with minimal swelling. Minimal tenderness with palpation of the medial aspect. ROM WNL. No warmth or erythema noted. Back: Normal inspection. No vertebral tenderness noted. Neurological: Alert, oriented 3, no focal deficits. Psychiatric: normal affect, normal mood. Skin: Dry, intact, warm. Normal color. No rashes. - Assessment and Plan (1) Sepsis Current Visit: Yes Status: Resolved The patient had 3 sepsis criteria on admission. Secondary to right knee infection. Improved. Afebrile overnight. Tachycardia resolved. White blood cell count n ormalized. Blood cultures drawn 07/30/19 are no growth to date 2 sets. Qualifiers: Sepsis type: sepsis due to unspecified organism Sepsis acute organ dysfunc tion status: without acute organ dysfunction Qualified Code(s): A41.9 - Sepsis, unspecified organism SNOMED Code(s): 09408762 (2) Effusion, right knee Current Visit: Yes Status: Acute Location: Right knee. Etiology unclear. Infectious vs. inflammatory vs. other. CT right knee showed a moderate right knee effusion. ESR 36, CRP 111. The patient does have hardware in the knee. Ortho consulted. Recommended IR to evaluate for arthrocentesis, but the patient has already been on antibiotics for a day. Status post arthrocentesis by interventional radiology 07/31/19. Total neutrophil count not performed due to the viscosity of the fluid. Approximately 14 mL of turbid straw-colored gelatinous fluid was aspirated. Gram stain is negative. Cultures are no growth. No crystals were seen. Not currently on any antibiotics. SNOMED Code(s): 132024638 (3) Septic arthritis Current Visit: Yes Status: Ruled-out Qualifiers: Septic arthritis location: knee Septic arthritis organism: due to unspecified organism Laterality: right Qualified Code(s): M00.9 - Pyogenic arthritis, unspecified SNOMED Code(s): 836825729 (4) UTI (urinary tract infection) Current Visit: Yes Status: Ruled-out Asymptomatic. Urinalysis appears contaminated (many epithelial cells). Urine culture negative. Qualifiers: Urinary tract infection type: site unspecified Hematuria presence: without hematuria Qualified Code(s): N39.0 - Urinary tract infection, site not specified SNOMED Code(s): 21417887 (5) History of total knee replacement Current Visit: Yes Status: Chronic Last surgery 10 years ago. Qualifiers: Laterality: bilateral Qualified Code(s): Z96.653 - Presence of artificial knee joint, bilateral SNOMED Code(s): 3215793229732, 3659268976292, [id number] (6) CAD (coronary artery disease) Current Visit: Yes Status: Chronic Qualifiers: Coronary Disease-Associated Artery/Lesion type: [place] artery [place] vs. transplanted heart: [place] heart Associated angina: without angina Qualified Code(s): I25.10 - Atherosclerotic heart disease of [place] coronary artery without angina pectoris SNOMED Code(s): 46714933 (7) COPD (chronic obstructive pulmonary disease) Current Visit: Yes Status: Chronic Qualifiers: COPD type: chronic bronchitis Chronic bronchitis type: simple Qualified Code(s): J41.0 - Simple chronic bronchitis SNOMED Code(s): 45172696 (8) GERD (gastroesophageal reflux disease) Current Visit: No Status: Chronic Qualifiers: Esophagitis presence: esophagitis presence not specified Qualified Code(s): K21.9 - Gastro-esophageal reflux disease without esophagitis SNOMED Code(s): 895136425 (9) Hypothyroid Current Visit: Yes Status: Chronic Qualifiers: Hypothyroidism type: acquired Qualified Code(s): E03.9 - Hypothyroidism, unspecified SNOMED Code(s): 91449196 - Recommendations Recommendations: Await blood cultures to finalize. Await synovial fluid cultures to finalize. Continue to observe off antibiotics. Low index of suspicion for infection at this point given the improvement in the patient's symptoms after drainage of the joint fluid and the fact that the gram stain is negative an cultures are no growth. No further recommendations from the ID team. We will sign off. Please re-consult if needed. Consult Discharge Plan - Plan Referrals: Mihai Medrano MD [Primary Care Provider] - - Attending Attestation I have personally performed a face to face evaluation on this patient. I have reviewed and agree with the care plan. History and Exam by me shows: Assessment and plan: 1.Sepsis likely secondary to #2 2.Right knee effusion etiology not clear. Concern for infectious etiology. Patient had history of gout but she tells me that always happens in her feet never that her 3.knee before. 4.Urinary tract infection 5.Coronary artery disease 6.COPD Recommendations: Continue to hold off antibiotics and see if infection reveals itself. Discussed at length with the patient and the son who is at bedside and seems to be well versed medical knowledge discussed with the orthopedic team.
--- NOTE | 2019-08-02 14:41 | Orthopedics Progress Note ---
Date of Encounter: 08/01/19 Time of Encounter: 12:30 - Assessment and Plan (1) Effusion, right knee Current Visit: Yes Status: Acute (2) History of total knee replacement Current Visit: Yes Status: Chronic Qualifiers: Laterality: bilateral Qualified Code(s): Z96.653 - Presence of artificial knee joint, bilateral Subjective Principal diagnosis: right knee effusion Interval history: Patient admitted 07/30/19 with right knee pain. Patient status post right total knee, open reduction internal fixation of right distal femur fracture appx 10 years ago per patient. She states she had her right knee replaced and appx 2 years later she fell and had fracture femur and subsequent ORIF. Patient presented with right knee pain and swelling to [facility]. In addition, she had an elevated white count and elevated ESR and CRP with CT scan demonstrating fluid within right knee joint. She was also noted to be febrile upon presentation with Tmax 100.6F. Subsequent to admission, patient has had several temps ~99F with no further exceeding 100F since admission. Concern for septic joint and therefore right knee aspiration performed by radiology team revealing 14cc turbid straw-colored gelatinous fluid and sent for evaluation and cultures. Thus far cultures have been negative. Cell count not performed by Lab. Examination of the right knee reveals healing aspiration site to anterior knee. No effusion appreciable on exam. No gross deformity noted. Well healed anterior knee scar and lateral right distal thigh incisions. Left knee anterior scar well healed. No swelling, no erythema, or drainage noted. Motion full appx 0-120 deg and equal bilaterally. No calf tenderness, erythema, or warmth bilaterally. Ankle motion intact bilaterally DP pulses 2+ bilaterally Neurovascularly intact bilaterally Case reviewed with Dr. Grady Patient underwent interventional radiology aspiration 07/31 which revealed normal appearing synovial fluid. Sent for cultures. Awaiting culture results. Patient with improved motion and pain since aspiration. Will continue to follow. Objective Vital signs: Vital Signs Temp Pulse Resp BP Pulse Ox 08/02/19 11:42 98.5 F 71 16 125/66 93 08/02/19 07:34 93 08/02/19 06:35 98.4 F 69 16 114/66 93 08/01/19 22:55 98.9 F 77 15 106/61 91 08/01/19 20:32 16 100 08/01/19 19:33 99.2 F 81 15 146/84 93 08/01/19 15:18 97.8 F 82 16 159/73 94 Intake and Output 08/01/19 08/02/19 08/02/19 23:59 07:59 15:59 Intake Total 360 / 410 480 / 480 Output Total 300 / 300 Balance 360 / 410 180 / 180 Intake: Oral 360 / 410 480 / 480 Output: Urine 300 / 300 Other: Meal Dinner Lunch Percent of Meal Consumed 50% 50% # Voids 1 1 1 - Labs CBC & BMP: 08/02/19 06:12 08/02/19 06:12 Labs: Abnormal lab results WBC 13.6 K/mcL (4.3-11.1) H 07/30/19 12:06 RBC 3.73 M/mcL (3.82-4.97) L 08/02/19 06:12 Hgb 11.0 g/dL (11.5-15.4) L 08/02/19 06:12 Hct 35.0 % (35.3-44.9) L 08/02/19 06:12 MCHC 31.4 g/dL (31.6-35.5) L 08/02/19 06:12 Neutrophils # 12.2 K/mcL (1.6-8.9) H 07/30/19 12:06 ESR 36 mm/hr (0-15) H 07/30/19 12:06 PT 12.2 Seconds (9.4-12.1) H 07/30/19 12:06 Est GFR ( Amer) 56 (> 60) L 07/30/19 12:06 Est GFR (Non-Af Amer) 55 (> 60) L 08/02/19 06:12 Glucose 114 mg/dL (70-105) H 07/30/19 12:06 Calcium 8.5 mg/dL (8.6-10.3) L 08/02/19 06:12 Total Bilirubin 1.1 mg/dL (0.3-1.0) H 07/30/19 12:06 C-Reactive Protein 111 mg/L (Less than 10) H 07/30/19 12:06 Ur Specimen Adequacy See below A 07/30/19 14:40 Urine Clarity Turbid (Clear) A 07/30/19 14:40 Ur Specific [place] > 1.030 (1.010-1.025) H 07/30/19 14:40 Urine Protein 30 mg/dL (Neg-Trace) H 07/30/19 14:40 Urine Blood Moderate (Negative) H 07/30/19 14:40 Ur Leukocyte Esterase Moderate (Negative) H 07/30/19 14:40 Urine Microscopic WBC 3-5 per hpf (0-3) H 07/30/19 14:40 Ur Squamous Epith Cells Many per lpf (None-Few) H 07/30/19 14:40 Urine Bacteria Moderate per hpf (None-Few) H 07/30/19 14:40 Ur Culture Indicated? YES (NO) A 07/30/19 14:40 Synovial Appearance Cloudy (Clear-Hazy) A 07/31/19 09:05 Consult Discharge Plan - Plan Referrals: Mihai Medrano MD [Primary Care Provider] -
[2019-08-02] MEDS ORDERED: Furosemide 20 MG TABLET PO PRN (14:44)
--- NOTE | 2019-08-02 14:58 | Orthopedics Progress Note ---
Date of Encounter: 08/02/19 Time of Encounter: 11:45 - Assessment and Plan (1) Effusion, right knee Current Visit: Yes Status: Acute (2) History of total knee replacement Current Visit: Yes Status: Chronic Qualifiers: Laterality: bilateral Qualified Code(s): Z96.653 - Presence of artificial knee joint, bilateral Subjective Principal diagnosis: right knee effusion Interval history: Patient admitted 07/30/19 with right knee pain. Patient status post right total knee, open reduction internal fixation of right distal femur fracture appx 10 years ago per patient. She states she had her right knee replaced and appx 2 years later she fell and had fracture femur and subsequent ORIF. Patient presented with right knee pain and swelling to [facility]. In addition, she had an elevated white count and elevated ESR and CRP with CT scan demonstrating fluid within right knee joint. She was also noted to be febrile upon presentation with Tmax 100.6F. Subsequent to admission, patient has had several temps ~99F with no further exceeding 100F since admission. Concern for septic joint and therefore right knee aspiration performed by radiology team revealing 14cc turbid straw- colored gelatinous fluid and sent for evaluation and cultures. Thus far cultures have been negative. Cell count not performed by Lab. Examination of the right knee reveals healing aspiration site to anterior knee. No effusion appreciable on exam. No gross deformity noted. Well healed anterior knee scar and lateral right distal thigh incisions. Left knee anterior scar well healed. No swelling, no erythema, or drainage noted. Motion full appx 0-120 deg and equal bilaterally. No calf tenderness, erythema, or warmth bilaterally. Ankle motion intact bilaterally DP pulses 2+ bilaterally Neurovascularly intact bilaterally Case reviewed with Dr. Grady Case reviewed with Dr. Sawyer and Airam Bonilla with infectious disease. They are recommending that trial off abx. Agree with this plan. Patient underwent interventional radiology aspiration 07/31 and sent for cultures. Awaiting culture results. Thus far have been negative. Patient with improved motion and pain since aspiration. Will continue to follow. Objective Vital signs: Vital Signs Temp Pulse Resp BP Pulse Ox 08/02/19 11:42 98.5 F 71 16 125/66 93 08/02/19 07:34 93 08/02/19 06:35 98.4 F 69 16 114/66 93 08/01/19 22:55 98.9 F 77 15 106/61 91 08/01/19 20:32 16 100 08/01/19 19:33 99.2 F 81 15 146/84 93 08/01/19 15:18 97.8 F 82 16 159/73 94 Intake and Output 08/01/19 08/02/19 08/02/19 23:59 07:59 15:59 Intake Total 360 / 410 480 / 480 Output Total 300 / 300 Balance 360 / 410 180 / 180 Intake: Oral 360 / 410 480 / 480 Output: Urine 300 / 300 Other: Meal Dinner Lunch Percent of Meal Consumed 50% 50% # Voids 1 1 1 - Labs CBC & BMP: 08/02/19 06:12 08/02/19 06:12 Labs: Abnormal lab results WBC 13.6 K/mcL (4.3-11.1) H 07/30/19 12:06 RBC 3.73 M/mcL (3.82-4.97) L 08/02/19 06:12 Hgb 11.0 g/dL (11.5-15.4) L 08/02/19 06:12 Hct 35.0 % (35.3-44.9) L 08/02/19 06:12 MCHC 31.4 g/dL (31.6-35.5) L 08/02/19 06:12 Neutrophils # 12.2 K/mcL (1.6-8.9) H 07/30/19 12:06 ESR 36 mm/hr (0-15) H 07/30/19 12:06 PT 12.2 Seconds (9.4-12.1) H 07/30/19 12:06 Est GFR ( Amer) 56 (> 60) L 07/30/19 12:06 Est GFR (Non-Af Amer) 55 (> 60) L 08/02/19 06:12 Glucose 114 mg/dL (70-105) H 07/30/19 12:06 Calcium 8.5 mg/dL (8.6-10.3) L 08/02/19 06:12 Total Bilirubin 1.1 mg/dL (0.3-1.0) H 07/30/19 12:06 C-Reactive Protein 111 mg/L (Less than 10) H 07/30/19 12:06 Ur Specimen Adequacy See below A 07/30/19 14:40 Urine Clarity Turbid (Clear) A 07/30/19 14:40 Ur Specific [place] > 1.030 (1.010-1.025) H 07/30/19 14:40 Urine Protein 30 mg/dL (Neg-Trace) H 07/30/19 14:40 Urine Blood Moderate (Negative) H 07/30/19 14:40 Ur Leukocyte Esterase Moderate (Negative) H 07/30/19 14:40 Urine Microscopic WBC 3-5 per hpf (0-3) H 07/30/19 14:40 Ur Squamous Epith Cells Many per lpf (None-Few) H 07/30/19 14:40 Urine Bacteria Moderate per hpf (None-Few) H 07/30/19 14:40 Ur Culture Indicated? YES (NO) A 07/30/19 14:40 Synovial Appearance Cloudy (Clear-Hazy) A 07/31/19 09:05 Consult Discharge Plan - Plan Referrals: Mihai Medrano MD [Primary Care Provider] -
[2019-08-02] MEDS: Gabapentin 300 MG CAPSULE PO SCH ×2 (16:55→21:21)
--- NOTE | 2019-08-02 20:25 | Internal Med Progress Note ---
Hospitalist Progress Note - Encounter Date of Encounter: 08/02/19 Time of Encounter: 12:00 - Subjective Interval History: Ms. Esquivel Status post joint aspiration and she attributes her relief of her right knee symptoms GEN: Denies fever, chills or malaise HEENT: Denies headache blurriness, or dysphagia RESP: Denies SOB or cough CV: Denies chest pain or palpitations GI: Denies Nausea, vomiting, diarrhea or constipation Reviewed current in hospital medications with modifications see orders Reviewed Routine labs . - Exam Vitals: Temp Pulse Resp BP Pulse Ox 98.3 F 82 17 136/74 94 08/02/19 15:42 08/02/19 15:42 08/02/19 15:42 08/02/19 15:42 08/02/19 15:42 Exam: GEN: NAD, A&O x 3, Pleasant and conversant SKIN: [place] warm acyanotic not jaundice HEART: RRR, no murmurs LUNGS: CTA no wheeze or crackles, overall non labored ABDOMEN; Soft, non tender or distended, BS x 4 normactive EXT: No LE edema, Pedal pulses 1+, radial pulses 2+, trace right knee effusion noted status post bilateral knee 'arthroplasty with healed surgical scar PSYCH: Mood and affect is appropriate - Assessment and Plan (1) Septic arthritis Current Visit: Yes Status: Suspected Assessment and Plan: s/p joint aspiration cultures pending, leukocytosis is resolved and she is afebrile she was seen by the infectious disease team recommended no antibiotics for now. Appreciate the input (2) Sepsis Current Visit: Yes Status: Resolved Assessment and Plan: Resolved leukocytosis normalized she is afebrile culture is pending ongoing plan per infectious diseases. Of note her leukocytosis could be reactive in the set ting of severe dehydration on admission specific gravity greater than 1.03 (3) CAD (coronary artery disease) Current Visit: Yes Status: Chronic Assessment and Plan: Denies any chest pain is on aspirin, Toprol XL not currently on statin therapy but will defer to primary care (4) COPD (chronic obstructive pulmonary disease) Current Visit: Yes Status: Chronic Assessment and Plan: DuoNeb as needed (5) Hypothyroid Current Visit: Yes Status: Chronic Assessment and Plan: Continue levothyroxine (6) DVT prophylaxis Current Visit: No Status: Acute Assessment and Plan: Heparin subcutaneous (7) HTN (hypertension) Current Visit: No Status: Chronic (8) Pyuria Current Visit: Yes Status: Acute Assessment and Plan: UA suggestive for UTI however she denies dysuria cultures pending no antibiotics for now - Time Spent with Patient Total time spent is greater than 50% in coordination of care (as documented) at patient's floor/unit and/or counseling patient: Internal Medicine: Result - Labs CBC & Chem 7: 08/02/19 06:12 08/02/19 06:12 Labs: Short CBC 08/02/19 Range/Units 06:12 WBC 4.6 (4.3-11.1) K/mcL Hgb 11.0 L (11.5-15.4) g/dL Hct 35.0 L (35.3-44.9) % Plt Count 233 (140-400) K/mcL BMP 08/02/19 06:12 Sodium 139 Potassium 3.9 Chloride 105 Carbon Dioxide 27 BUN 13 Creatinine 0.97 Glucose 100 Calcium 8.5 L - ABG Interpretation ABG results: PT/INR, D-dimer PT 12.2 Seconds (9.4-12.1) H 07/30/19 12:06 Consult Discharge Plan - Plan Referrals: Mihai Medrano MD [Primary Care Provider] - (1) Septic arthritis Qualifiers: Septic arthritis location: knee Septic arthritis organism: due to unspecified organism Laterality: right Qualified Code(s): M00.9 - Pyogenic arthritis, unspecified (2) Sepsis Qualifiers: Sepsis type: sepsis due to unspecified organism Sepsis acute organ dysfunction status: without acute organ dysfunction Qualified Code(s): A41.9 - Sepsis, unspecified organism (3) CAD (coronary artery disease) Qualifiers: Coronary Disease-Associated Artery/Lesion type: [place] artery [place] vs. transplanted heart: [place] heart Associated angina: without angina Qualified Code(s): I25.10 - Atherosclerotic heart disease of [place] coronary artery without angina pectoris (4) COPD (chronic obstructive pulmonary disease) Qualifiers: COPD type: chronic bronchitis Chronic bronchitis type: simple Qualified Code(s): J41.0 - Simple chronic bronchitis (5) Hypothyroid Qualifiers: Hypothyroidism type: acquired Qualified Code(s): E03.9 - Hypothyroidism, unspecified (7) HTN (hypertension) Qualifiers: Hypertension type: essential hypertension Qualified Code(s): I10 - Essential (primary) hypertension
[2019-08-02] MEDS: Ipratropium/Albuterol Neb 3 ML IH PRN (21:11)
[2019-08-03] MEDS: *HR* Heparin 5,000 UNIT/ML VIAL SQ SCH ×2 (05:44→12:30)
[2019-08-03 05:59] LABS: Basophils # 0.1 K/mcL (0.0-0.2); Basophils % 1.1 %; Eosinophils # 0.1 K/mcL (0.0-0.6); Eosinophils % 2.6 %; Hematocrit 37.7 % (35.3-44.9); Hemoglobin 11.3 g/dL (11.5-15.4); Immature Granulocytes % 0.9 % (0-4); Lymphocytes # 1.5 K/mcL (0.6-4.6); Lymphocytes % 33.4 %; Mean Corpuscular Hemoglobin 28.3 pg (28.0-33.3); Mean Corpuscular Volume 94.3 fL (83.0-100.0); Mean Platelet Volume 9.5 fL (9.4-12.4); Monocytes # 0.5 K/mcL (0.0-1.3); Monocytes % 9.9 %; Neutrophils # 2.4 K/mcL (1.6-8.9); Platelet Count 249 K/mcL (140-400); Red Cell Distribution Width 13.4 % (11.5-14.5); Segmented Neutrophils % 52.1 %; White Blood Count 4.6 K/mcL (4.3-11.1)
[2019-08-03 06:18] LABS: BUN/Creatinine Ratio 19 (6-26); Blood Urea Nitrogen 18 mg/dL (8-23); Calcium 8.9 mg/dL (8.6-10.3); Carbon Dioxide 29 mEq/L (23-29); Chloride 103 mEq/L (98-107); Glucose 104 mg/dL (70-105); Osmolality,Calculated 292 (280-300); Potassium 3.9 mEq/L (3.5-5.1); Sodium 140 mEq/L (136-145); eGFR For African Americans > 60 (> 60); eGFR For Non-African Americans 56 (> 60)
[2019-08-03] MEDS: Furosemide 20 MG TABLET PO SCH (07:29)
[2019-08-03] MEDS: Sucralfate 1 GM TABLET PO SCH ×2 (07:29→12:29)
[2019-08-03] MEDS: Gabapentin 300 MG CAPSULE PO SCH ×2 (07:29→15:10)
[2019-08-03] MEDS: Metoprolol XL (24 HR) Succ 50 MG TAB.ER.24H PO SCH (07:29)
[2019-08-03] MEDS: Aspirin Enteric Coated 81 MG Tablet PO SCH (07:30)
[2019-08-03] MEDS: Budesonide/Formoterol 160/4.5 1 PUFF INH IH SCH (08:02)
[2019-08-03] MEDS ORDERED: Famotidine 20 MG TABLET PO SCH (09:00)
[2019-08-03 10:49] VITALS: BP 111/67
--- NOTE | 2019-08-03 14:00 | Discharge Summary ---
- NOTES TO OUTPATIENT PROVIDER Notes to Outpatient Provider: Posthospital discharge follow right knee effusion, sepsis on initial presentation Orders not resulted at time of discharge: Pending orders 07/30/19 12:00 Culture,Blood [BC] Stat 07/31/19 09:05 AFB Culture, Body Fluid [TB] Routine AFB Smear [TB] Routine Culture,Anaerobic [RM] Stat Fungal Culture [MYC] Routine Date of Encounter: 08/03/19 Time of Encounter: 13:30 - Discharge Diagnosis (1) Effusion of right knee joint Priority: Primary Status: Acute Assessment and Plan: Patient with history of bilateral knee arthroplasty presented with right knee pain and effusion was initially worked up for septic arthritis, joint fluid aspiration did not reveal infectious causes culture was negative. (2) Sepsis Priority: Primary Status: Resolved Assessment and Plan: Resolved leukocytosis normalized within 24 hours, she is afebrile culture was negative including the joint aspirate, urine culture, blood culture. Her initial empiric antimicrobial therapy was discontinued and patient clinically continued to do better. Of note her leukocytosis could be reactive in the setting of severe dehydration on admission specific gravity greater than 1.03 Qualifiers: Sepsis type: sepsis due to unspecified organism Sepsis acute organ dysfunction status: without acute organ dysfunction Qualified Code(s): A41.9 - Sepsis, unspecified organism (3) CAD (coronary artery disease) Priority: Secondary Status: Chronic Assessment and Plan: Denies any chest pain is on aspirin, Toprol XL not currently on statin therapy but will defer to primary care Qualifiers: Coronary Disease-Associated Artery/Lesion type: [place] artery [place] vs. transplanted heart: [place] heart Associated angina: without angina Qualified Code(s): I25.10 - Atherosclerotic heart disease of [place] coronary artery without angina pectoris (4) COPD (chronic obstructive pulmonary disease) Priority: Secondary Status: Chronic Assessment and Plan: Resume home inhalers Qualifiers: COPD type: chronic bronchitis Chronic bronchitis type: simple Qualified Code(s): J41.0 - Simple chronic bronchitis (5) Hypothyroid Priority: Secondary Status: Chronic Assessment and Plan: Continue levothyroxine Qualifiers: Hypothyroidism type: acquired Qualified Code(s): E03.9 - Hypothyroidism, unspecified (6) DVT prophylaxis Priority: Secondary Status: Acute Assessment and Plan: Heparin subcutaneous discharge today (7) HTN (hypertension) Priority: Secondary Status: Chronic Assessment and Plan: She remained normotensive during his hospital stay resume home meds Qualifiers: Hypertension type: essential hypertension Qualified Code(s): I10 - Essential (primary) hypertension (8) Pyuria Priority: Primary Status: Acute Assessment and Plan: UA suggestive for UTI however she denies dysuria urine culture negative Hospital course: Ms. Esquivel is a 84 year old female with history of bilateral knee arthroplasty presented with right knee pain and effusion was initially worked up for septic arthritis, joint fluid aspiration did not reveal infectious causes culture was negative. She was seen by the ID team, The empiric antibiotics was discontinued patient clinically continued to improve Discharge discussed with: patient, nurse, social work, case management - Time Spent with Patient Total time spent providing and/or coordinating discharge services: 34 mins Specific discharge activities: Please make sure you keep up with your follow-up primary care physician visits and take all medications as prescribed - Discharge Medications Prescriptions: New Metoprolol XL (24 HR) Succ [Toprol Xl] 50 mg PO DAILY #30 tab.er.24h Continued Furosemide [Lasix] 20 mg PO DAILY PRN PRN Reason: swelling Esomeprazole Magnesium [Nexium] 40 mg PO DAILY PRN PRN Reason: heart burn Sucralfate [Carafate] 1 gm PO BID Cyclobenzaprine [Flexeril] 10 mg PO HS PRN PRN Reason: Muscle Spasm Gabapentin [Neurontin] 300 mg PO TID Albuterol Sulfate [Proair Hfa] 2 puff IH Q4HR Fluticasone/Salmeterol [Advair 500-50 Diskus] 1 puff IH DAILY Levothyroxine Sodium 50 mcg PO QAM Aspirin [Lo-Dose Aspirin EC] 81 mg PO DAILY Hyoscyamine SL [Levsin Sl] 0.125 mg SL Q4HR PRN PRN Reason: IBS Ipratropium [place] 2 spray NS TID PRN PRN Reason: Runny Nose Meclizine HCl [Verticalm] 25 mg PO DAILY PRN PRN Reason: Vertigo Memantine HCl 10 mg PO BID Sertraline [Zoloft] 150 mg PO DAILY Discontinued Famotidine [Pepcid] 20 mg PO DAILY Metoprolol Succinate [Toprol Xl] 50 mg PO BID Home Medications: Cyclobenzaprine [Flexeril] 10 mg PO HS PRN 04/01/16 [History] Esomeprazole Magnesium [Nexium] 40 mg PO DAILY PRN 04/01/16 [History] Furosemide [Lasix] 20 mg PO DAILY PRN 04/01/16 [History] Gabapentin [Neurontin] 300 mg PO TID 04/01/16 [History] Sucralfate [Carafate] 1 gm PO BID 04/01/16 [History] Albuterol Sulfate [Proair Hfa] 2 puff IH Q4HR 03/15/18 [History] Fluticasone/Salmeterol [Advair 500-50 Diskus] 1 puff IH DAILY 03/15/18 [History] Levothyroxine Sodium 50 mcg PO QAM 03/15/18 [History] Aspirin [Lo-Dose Aspirin EC] 81 mg PO DAILY 05/31/19 [History] Hyoscyamine SL [Levsin Sl] 0.125 mg SL Q4HR PRN 05/31/19 [History] Ipratropium [place] 2 spray NS TID PRN 07/31/19 [History] Meclizine HCl [Verticalm] 25 mg PO DAILY PRN 07/31/19 [History] Memantine HCl 10 mg PO BID 07/31/19 [History] Sertraline [Zoloft] 150 mg PO DAILY 07/31/19 [History] Metoprolol XL (24 HR) Succ [Toprol Xl] 50 mg PO DAILY #30 tab.er.24h 08/03/19 [Rx] Allergies/Adverse Reactions: Allergy/AdvReac Type Severity Reaction Status Date / Time sulfamethoxazole Allergy Hives Verified 07/31/19 14:47 [From Bactrim] trimethoprim [From Bactrim] Allergy Hives Verified 07/31/19 14:47 Date of admission: 07/31/19 14:29 Primary care physician: Mihai Medrano MD Consults: 07/30/19 14:41 Consult to Orthopedic Surgery [CONS] Stat Consulting Provider: Ritchie Lyman Reason for Consult: possible septic knee Time Notified: 14:42 Call Completed: Yes 07/30/19 16:38 Consult to [facility] [CONS] Routine Reason for SW Consult: Financial concerns 07/31/19 09:04 Consult to Interventional Radiology [CONS] Routine Consulting Provider: Radiology Interventional [facility] Reason for Consult: right knee effusion; elevated ESR/CRP; aspiration and send for cultures Time Notified: 09:04 Call Completed: Yes 07/31/19 10:16 Consult to Infectious Diseases [CONS] Routine Consulting Provider: Infectious Disease [place] Reason for Consult: possible septic arthritis of the right knee Call Completed: No 08/02/19 09:39 Consult to Physical Therapy [CONS] Routine Comment: Evaluate, develop and implement POC Reason for Consult: hx of bilateral arthroplasty, unable to bear weight on admission. rule out septic joint. please access mobility Does patient have active BEDREST order?: No Is patient medically & hemodynamically stable?: Yes Discharging clinician: Castro Cheung Anticipated date of discharge: 08/03/19 - Constitutional Vitals: Temp Pulse Resp BP Pulse Ox 97.8 F 76 18 111/67 95 08/03/19 10:07 08/03/19 10:07 08/03/19 10:07 08/03/19 10:07 08/03/19 10:07 Exam: GEN: NAD, A&O x 3, Pleasant and conversant SKIN: [place] warm acyanotic not jaundice HEART: RRR, no murmurs LUNGS: CTA no wheeze or crackles, overall non labored ABDOMEN; Soft, non tender or distended, BS x 4 normactive EXT: No LE edema, Pedal pulses 1+, radial pulses 2+, trace right knee effusion noted much improvement from yesterday's exam status post bilateral knee 'arthroplasty with healed surgical scar PSYCH: Mood and affect is appropriate - Patient Status Disposition: Home, Self-Care Condition: Good Functional capacity at discharge: independent ambulation Overall status at discharge: patient is back to baseline - Discharge Instructions Follow Up With: Mihai Medrano MD [Primary Care Provider] - - Diet and Activity Activity: resume usual activities as tolerated Diet: low fat, low cholesterol, low salt diet
[2019-08-03] MEDS ORDERED: FLU Vac QV 19-20 (6Month+)/PF 0.5 ML SYRINGE IM ONE (15:20)
== END 2019-08-03 16:00 | disposition home or self-care (01) | DRG 872 ==
LOC: EMEROOARM 11:45 → 3NENU 11:45 → SUATTDRO 07-31 14:29
PROVIDERS: ADMIT Student in an Organized Health Care Education/Training Program; ATTEND Pharmacist

== ENCOUNTER 2022-04-25 19:38 | Observation (INO) ==
[2022-04-25] MEDS ORDERED: Azithromycin 500 MG in 0.9 % Sodium Chloride 250 ML IVPB ONE (20:31)
[2022-04-25] MEDS ORDERED: methylPREDNISolone 125 MG/2 ML VIAL IVP ONE (20:31)
[2022-04-25 20:54] LABS: Hematocrit 41.3 % (35.3-44.9); Mean Corpuscular HGB Conc 31.5 g/dL (31.6-35.5); Mean Corpuscular Hemoglobin 28.4 pg (28.0-33.3); Mean Corpuscular Volume 90.2 fL (83.0-100.0); Mean Platelet Volume 10.7 fL (9.4-12.4); Platelet Count 189 K/mcL (140-400); Red Blood Count 4.58 M/mcL (3.82-4.97); Red Cell Distribution Width 16.4 % (11.5-14.5); White Blood Count 18.9 K/mcL (4.3-11.1)
[2022-04-25 21:01] LABS: INR 1.4; Prothrombin Time 15.2 Seconds (9.4-12.1)
[2022-04-25 21:04] LABS: Activated Partial Thrombo Time 30.6 Seconds (26.0-36.0)
[2022-04-25 21:06] LABS: Alanine Aminotransferase 9 Units/L (7-52); Albumin 3.8 g/dL (3.5-5.7); Albumin/Globulin Ratio 1.5 (1.1-2.2); Alkaline Phosphatase 54 Units/L (34-104); Aspartate Amino Transferase 16 Units/L (13-39); BUN/Creatinine Ratio 20 (6-26); Bilirubin,Direct 0.2 mg/dL (0.0-0.2); Bilirubin,Total 1.2 mg/dL (0.3-1.0); Blood Urea Nitrogen 19 mg/dL (8-23); Calcium 9.1 mg/dL (8.6-10.3); Carbon Dioxide 25 mEq/L (23-29); Chloride 100 mEq/L (98-107); Globulin 2.6 g/dL (2.4-3.5); Glucose 107 mg/dL (70-105); Osmolality,Calculated 289 (280-300); Potassium 3.4 mEq/L (3.5-5.1); Sodium 138 mEq/L (136-145); Total Protein 6.4 g/dL (6.4-8.9); Troponin I 0.03 ng/mL (< 0.04); eGFR For African Americans > 60 (> 60); eGFR For Non-African Americans 54 (> 60)
[2022-04-25 21:16] LABS: Lymphocytes # 0.6 K/mcL (0.6-4.6); Monocytes # 0.6 K/mcL (0.0-1.3); Neutrophils # 17.6 K/mcL (1.6-8.9)
[2022-04-25 21:17] LABS: Platelet Estimate Normal (Normal)
[2022-04-25 21:48] LABS: Adenovirus Not Detected (Not Detect); Bordetella Pertussis Not Detected (Not Detect); Chlamydophila pneumoniae Not Detected (Not Detect); Coronavirus 229E Not Detected (Not Detect); Coronavirus HKU1 Not Detected (Not Detect); Coronavirus NL63 Not Detected (Not Detect); Coronavirus OC43 Not Detected (Not Detect); Human Metapneumovirus Not Detected (Not Detect); Human Rhinovirus/Enterovirus Not Detected (Not Detect); Influenza A Subtype 2009 H1 Not Detected (Not Detect); Influenza B Not Detected (Not Detect); Mycoplasma pneumoniae Not Detected (Not Detect); Parainfluenza Virus 1 Not Detected (Not Detect); Parainfluenza Virus 2 Not Detected (Not Detect); Parainfluenza Virus 3 Not Detected (Not Detect); Parainfluenza Virus 4 Not Detected (Not Detect); Respiratory Syncytial Virus Not Detected (Not Detect); SARS-CoV-2 Not Detected (Not Detect)
[2022-04-25] MEDS ORDERED: cefTRIAXone 1,000 MG in 0.9 % Sodium Chloride Mini Bag 100 ML IVPB ONE (22:25)
[2022-04-26] MEDS: Levalbuterol Neb 1.25 MG/3 ML IH SCH ×5 (02:27→21:47)
[2022-04-26] MEDS ORDERED: Acetaminophen 325 MG TABLET PO PRN (02:31)
[2022-04-26] MEDS ORDERED: Naloxone 0.4 MG/ML INJ IVP PRN (02:31)
[2022-04-26 03:08] LABS: Hematocrit 40.2 % (35.3-44.9); Hemoglobin 12.5 g/dL (11.5-15.4); Mean Corpuscular HGB Conc 31.1 g/dL (31.6-35.5); Mean Corpuscular Volume 89.9 fL (83.0-100.0); Mean Platelet Volume 10.2 fL (9.4-12.4); Platelet Count 171 K/mcL (140-400); Red Blood Count 4.47 M/mcL (3.82-4.97); Red Cell Distribution Width 16.3 % (11.5-14.5); White Blood Count 17.2 K/mcL (4.3-11.1)
[2022-04-26 03:32] LABS: BUN/Creatinine Ratio 22 (6-26); Blood Urea Nitrogen 21 mg/dL (8-23); Calcium 8.9 mg/dL (8.6-10.3); Carbon Dioxide 24 mEq/L (23-29); Chloride 103 mEq/L (98-107); Chol/HDL Ratio 1.6 (0-4.9); Cholesterol 104 mg/dL (< 200); Glucose 132 mg/dL (70-105); HDL Cholesterol 65 mg/dL (40-59); LDL Cholesterol,Calculated 26 mg/dL (< 100); Magnesium 1.6 mg/dL (1.6-2.6); Osmolality,Calculated 289 (280-300); Potassium 3.7 mEq/L (3.5-5.1); Sodium 137 mEq/L (136-145); Triglycerides 67 mg/dL (< 150); eGFR For African Americans > 60 (> 60); eGFR For Non-African Americans 54 (> 60)
[2022-04-26 03:44] LABS: Thyroid Stimulating Hormone 0.838 mcIU/mL (0.340-5.600)
[2022-04-26] MEDS ORDERED: Hyoscyamine SL 0.125 MG TAB.SUBL SL PRN (04:06)
[2022-04-26] MEDS ORDERED: Prochlorperazine 10 MG/2 ML VIAL IVP PRN (04:24)
[2022-04-26 05:16] LABS: Estimated Average Glucose 111 mg/dl; Hemoglobin A1C 5.5 %
[2022-04-26 05:49] LABS: Bacteria,Urine Few per hpf (None-Few); Bilirubin,Urine Negative (Negative); Blood,Urine Negative (Negative); Clarity,Urine Clear (Clear); Color,Urine Yellow (Yellow); Glucose,Urine (UA) Normal (Normal); Ketones,Urine Negative (Negative); Leukocyte Esterase,Urine Trace (Negative); Mucus,Urine Few per lpf (None-Few); Nitrite,Urine Negative (Negative); Protein,Urine 50 mg/dL (Neg-Trace); RBC,Urine 0-3 per hpf (0-3); Specific Gravity,Urine 1.029 (1.010-1.025); Squamous Epithelial Cell,Urine Few per hpf (None-Few); Urobilinogen,Urine Normal (Normal)
[2022-04-26] MEDS: methylPREDNISolone 125 MG/2 ML VIAL IVP SCH ×3 (07:35→23:17)
[2022-04-26] MEDS: Aspirin Enteric Coated 81 MG Tablet PO SCH (07:36)
[2022-04-26] MEDS: Sucralfate 1 GM TABLET PO SCH ×2 (07:36→15:39)
[2022-04-26] MEDS: Metoprolol XL (24 HR) Succ 50 MG TAB.ER.24H PO SCH (07:36)
[2022-04-26] MEDS: Azithromycin 250 MG TABLET PO SCH (12:56)
[2022-04-26] MEDS ORDERED: Gabapentin 300 MG CAPSULE PO PRN (17:55)
[2022-04-26] MEDS ORDERED: Furosemide 20 MG TABLET PO PRN (17:55)
[2022-04-26] MEDS ORDERED: Azithromycin 500 MG in 0.9 % Sodium Chloride 250 ML IVPB SCH (21:00)
[2022-04-26] MEDS: cefTRIAXone 1,000 MG in 0.9 % Sodium Chloride 10 ML IVP SCH (23:14)
[2022-04-27] MEDS: Levalbuterol Neb 1.25 MG/3 ML IH SCH ×2 (04:07→11:22)
[2022-04-27 04:45] LABS: Hematocrit 39.2 % (35.3-44.9); Hemoglobin 12.3 g/dL (11.5-15.4); Mean Corpuscular HGB Conc 31.4 g/dL (31.6-35.5); Mean Corpuscular Hemoglobin 28.1 pg (28.0-33.3); Mean Corpuscular Volume 89.5 fL (83.0-100.0); Mean Platelet Volume 10.9 fL (9.4-12.4); Platelet Count 198 K/mcL (140-400); Red Blood Count 4.38 M/mcL (3.82-4.97); Red Cell Distribution Width 16.2 % (11.5-14.5); White Blood Count 13.3 K/mcL (4.3-11.1)
[2022-04-27 05:03] LABS: BUN/Creatinine Ratio 39 (6-26); Blood Urea Nitrogen 39 mg/dL (8-23); Carbon Dioxide 26 mEq/L (23-29); Chloride 107 mEq/L (98-107); Glucose 140 mg/dL (70-105); Osmolality,Calculated 304 (280-300); Potassium 3.5 mEq/L (3.5-5.1); Sodium 141 mEq/L (136-145); eGFR For African Americans > 60 (> 60); eGFR For Non-African Americans 52 (> 60)
[2022-04-27] MEDS: methylPREDNISolone 125 MG/2 ML VIAL IVP SCH (07:40)
[2022-04-27] MEDS: cefTRIAXone 1,000 MG in 0.9 % Sodium Chloride 10 ML IVP SCH (07:40)
[2022-04-27] MEDS: Metoprolol XL (24 HR) Succ 50 MG TAB.ER.24H PO SCH (07:41)
[2022-04-27] MEDS: Sucralfate 1 GM TABLET PO SCH (07:41)
[2022-04-27] MEDS: Azithromycin 250 MG TABLET PO SCH (07:41)
[2022-04-27] MEDS: Aspirin Enteric Coated 81 MG Tablet PO SCH (07:41)
[2022-04-27 11:52] VITALS: BP 149/70; PULSE 103; TEMP 98.4; O2SAT 92
== END 2022-04-27 13:06 | disposition home health service (06) ==
LOC: EMEROOARM 19:38 → 3ANU 19:38 → SUATTDRO 23:41 → 3ANU 04-26 01:00
PROVIDERS: ADMIT Internal Medicine; ATTEND Family Medicine

== ENCOUNTER 2022-04-28 15:51 | Inpatient (IN) ==
[2022-04-28] MEDS ORDERED: Isovue-370 500 ML BOTTLE IVP ONE (16:08)
[2022-04-28 16:23] LABS: Basophils % 0.2 %; Hematocrit 40.2 % (35.3-44.9); Hemoglobin 12.7 g/dL (11.5-15.4); Immature Granulocytes % 1.1 % (0-4); Lymphocytes # 0.2 K/mcL (0.6-4.6); Lymphocytes % 1.3 %; Mean Corpuscular HGB Conc 31.6 g/dL (31.6-35.5); Mean Corpuscular Hemoglobin 28.5 pg (28.0-33.3); Mean Corpuscular Volume 90.3 fL (83.0-100.0); Mean Platelet Volume 10.2 fL (9.4-12.4); Monocytes # 0.3 K/mcL (0.0-1.3); Monocytes % 2.1 %; Neutrophils # 12.8 K/mcL (1.6-8.9); Platelet Count 232 K/mcL (140-400); Red Blood Count 4.45 M/mcL (3.82-4.97); Red Cell Distribution Width 16.2 % (11.5-14.5); Segmented Neutrophils % 95.3 %; White Blood Count 13.4 K/mcL (4.3-11.1)
[2022-04-28 16:37] LABS: INR 1.1; Prothrombin Time 11.9 Seconds (9.4-12.1)
[2022-04-28 16:40] LABS: Activated Partial Thrombo Time 26.2 Seconds (26.0-36.0)
[2022-04-28 16:47] LABS: Alanine Aminotransferase 15 Units/L (7-52); Albumin 3.5 g/dL (3.5-5.7); Albumin/Globulin Ratio 1.5 (1.1-2.2); Alkaline Phosphatase 54 Units/L (34-104); Aspartate Amino Transferase 17 Units/L (13-39); BUN/Creatinine Ratio 35 (6-26); Bilirubin,Direct 0.1 mg/dL (0.0-0.2); Bilirubin,Indirect 0.4 mg/dL (0.0-1.0); Bilirubin,Total 0.5 mg/dL (0.3-1.0); Blood Urea Nitrogen 31 mg/dL (8-23); Calcium 8.6 mg/dL (8.6-10.3); Carbon Dioxide 26 mEq/L (23-29); Chloride 105 mEq/L (98-107); Globulin 2.3 g/dL (2.4-3.5); Glucose 182 mg/dL (70-105); Osmolality,Calculated 305 (280-300); Potassium 3.8 mEq/L (3.5-5.1); Sodium 142 mEq/L (136-145); Total Protein 5.8 g/dL (6.4-8.9); Troponin I < 0.03 ng/mL (< 0.04); eGFR For African Americans > 60 (> 60); eGFR For Non-African Americans > 60 (> 60)
[2022-04-28 16:53] LABS: Platelet Estimate Normal (Normal)
[2022-04-28] MEDS ORDERED: 0.9 % Sodium Chloride 1,000 ML IV ONE (20:17)
[2022-04-28 20:21] LABS: Influenza A PCR Negative (Negative); Influenza B PCR Negative (Negative); Resp. Syncytial Virus PCR Negative (Negative)
[2022-04-28 20:23] LABS: SARS-CoV-2 by PCR (In House) Negative (Negative)
[2022-04-28] MEDS ORDERED: Azithromycin 500 MG in 0.9 % Sodium Chloride 250 ML IVPB ONE (21:02)
[2022-04-28] MEDS ORDERED: cefTRIAXone 1,000 MG in 0.9 % Sodium Chloride 10 ML IVP ONE (21:02)
[2022-04-28] MEDS ORDERED: Naloxone 0.4 MG/ML INJ IVP PRN (22:32)
[2022-04-28] MEDS ORDERED: Melatonin 3 MG TABLET PO PRN (22:32)
[2022-04-28] MEDS ORDERED: Ondansetron 4 MG/2 ML VIAL IVP PRN (22:32)
[2022-04-28] MEDS ORDERED: Saline Nasal Spray 44 ML BOTTLE NS PRN (23:14)
[2022-04-28] MEDS ORDERED: Saliva Stimulant 44.3ml BOTTLE PO PRN (23:14)
[2022-04-28] MEDS ORDERED: Furosemide 40 MG/4 ML VIAL IVP ONE (23:50)
[2022-04-29] MEDS: Ipratropium/Albuterol Neb 3 ML IH SCH ×5 (01:28→21:07)
[2022-04-29] MEDS: MethylPREDNISolone 40 MG/ML VIAL IVP SCH ×2 (05:43→16:20)
[2022-04-29] MEDS: *HR* Enoxaparin 40 MG/0.4 ML SYRINGE SQ SCH (05:43)
[2022-04-29 06:05] LABS: VBG HCO3 30 mEq/L (21-27); VBG PCO2 51 mmHg (41-51); VBG PH 7.38 pH Units (7.32-7.42); VBG PO2 29 mmHg (25-50)
[2022-04-29 06:08] LABS: Basophils % 0.2 %; Hematocrit 42.6 % (35.3-44.9); Hemoglobin 12.8 g/dL (11.5-15.4); Immature Granulocytes % 0.8 % (0-4); Lymphocytes # 0.8 K/mcL (0.6-4.6); Lymphocytes % 8.8 %; Mean Corpuscular Hemoglobin 27.9 pg (28.0-33.3); Mean Corpuscular Volume 92.8 fL (83.0-100.0); Mean Platelet Volume 10.4 fL (9.4-12.4); Monocytes # 0.8 K/mcL (0.0-1.3); Monocytes % 8.4 %; Neutrophils # 7.6 K/mcL (1.6-8.9); Platelet Count 256 K/mcL (140-400); Red Blood Count 4.59 M/mcL (3.82-4.97); Red Cell Distribution Width 16.4 % (11.5-14.5); Segmented Neutrophils % 81.8 %; White Blood Count 9.3 K/mcL (4.3-11.1)
[2022-04-29 06:18] LABS: Activated Partial Thrombo Time 25.8 Seconds (26.0-36.0)
[2022-04-29 06:19] LABS: INR 1.1; Prothrombin Time 12.2 Seconds (9.4-12.1)
[2022-04-29 06:26] LABS: BUN/Creatinine Ratio 25 (6-26); Blood Urea Nitrogen 25 mg/dL (8-23); Calcium 8.8 mg/dL (8.6-10.3); Carbon Dioxide 33 mEq/L (23-29); Chloride 104 mEq/L (98-107); Glucose 101 mg/dL (70-105); Osmolality,Calculated 305 (280-300); Potassium 3.7 mEq/L (3.5-5.1); Sodium 145 mEq/L (136-145); eGFR For African Americans > 60 (> 60); eGFR For Non-African Americans 53 (> 60)
[2022-04-29 06:47] LABS: Chol/HDL Ratio 1.8 (0-4.9); Magnesium 1.9 mg/dL (1.6-2.6); Phosphorous 3.3 mg/dL (2.7-4.5); Thyroid Stimulating Hormone 1.876 mcIU/mL (0.340-5.600); Troponin I 0.03 ng/mL (< 0.04)
[2022-04-29] MEDS: Lactobacillus 1 EACH CAP.SPRINK PO SCH ×2 (08:36→21:08)
[2022-04-29] MEDS: Multivit/Ca/Min/Fe/FA 1 TAB TABLET PO SCH (08:36)
[2022-04-29] MEDS: Albumin 25% 25gram/100mL 25 GM/100 ML IV.SOLN IVPB SCH ×2 (08:37→10:49)
[2022-04-29] MEDS: Acetaminophen 325 MG TABLET PO PRN ×3 (08:37→23:38)
[2022-04-29] MEDS: Chlorhexidine Rinse 15 ML MOUTHWASH MM SCH ×2 (08:37→21:08)
[2022-04-29] MEDS: Piperacillin/Tazobactam 3.375 GM in 0.9 % Sodium Chloride Mini Bag 100 ML IVPB SCH ×3 (08:45→23:34)
[2022-04-29 09:35] LABS: Estimated Average Glucose 114 mg/dl; Hemoglobin A1C 5.6 %
[2022-04-29] MEDS: Budesonide/Formoterol 160/4.5 1 PUFF INH IH SCH ×2 (09:59→21:08)
[2022-04-29] MEDS: Artificial Tears SOLN 15 ML BOTTLE BOTH EYES SCH ×2 (10:48→21:10)
[2022-04-29] MEDS: Furosemide 20 MG/2 ML VIAL IVP SCH (10:49)
[2022-04-29 12:34] LABS: Procalcitonin 0.84 ng/mL (0.00-0.15)
[2022-04-29 19:28] LABS: Adenovirus Not Detected (Not Detect); Bordetella Pertussis Not Detected (Not Detect); Chlamydophila pneumoniae Not Detected (Not Detect); Coronavirus 229E Not Detected (Not Detect); Coronavirus HKU1 Not Detected (Not Detect); Coronavirus NL63 Not Detected (Not Detect); Coronavirus OC43 Not Detected (Not Detect); Human Metapneumovirus Not Detected (Not Detect); Human Rhinovirus/Enterovirus Not Detected (Not Detect); Influenza A Subtype 2009 H1 Not Detected (Not Detect); Influenza B Not Detected (Not Detect); Mycoplasma pneumoniae Not Detected (Not Detect); Parainfluenza Virus 1 Not Detected (Not Detect); Parainfluenza Virus 2 Not Detected (Not Detect); Parainfluenza Virus 3 Not Detected (Not Detect); Parainfluenza Virus 4 Not Detected (Not Detect); Respiratory Syncytial Virus Not Detected (Not Detect); SARS-CoV-2 Not Detected (Not Detect)
[2022-04-30 03:40] LABS: Hemoglobin 11.3 g/dL (11.5-15.4); Mean Corpuscular HGB Conc 31.4 g/dL (31.6-35.5); Mean Corpuscular Hemoglobin 27.9 pg (28.0-33.3); Mean Corpuscular Volume 88.9 fL (83.0-100.0); Mean Platelet Volume 10.1 fL (9.4-12.4); Platelet Count 242 K/mcL (140-400); Red Blood Count 4.05 M/mcL (3.82-4.97); White Blood Count 8.9 K/mcL (4.3-11.1)
[2022-04-30 03:58] LABS: Calcium 8.3 mg/dL (8.6-10.3); Potassium 3.2 mEq/L (3.5-5.1)
[2022-04-30 04:24] LABS: Folate 14.3 ng/mL (3.0-16.0)
[2022-04-30] MEDS: *HR* Enoxaparin 40 MG/0.4 ML SYRINGE SQ SCH (05:30)
[2022-04-30] MEDS: MethylPREDNISolone 40 MG/ML VIAL IVP SCH (05:30)
[2022-04-30] MEDS: Ipratropium/Albuterol Neb 3 ML IH SCH ×3 (07:30→20:14)
[2022-04-30] MEDS: Budesonide/Formoterol 160/4.5 1 PUFF INH IH SCH ×2 (07:30→20:13)
[2022-04-30] MEDS: Lactobacillus 1 EACH CAP.SPRINK PO SCH ×2 (08:22→21:17)
[2022-04-30] MEDS: Multivit/Ca/Min/Fe/FA 1 TAB TABLET PO SCH (08:22)
[2022-04-30] MEDS: Furosemide 20 MG/2 ML VIAL IVP SCH (08:22)
[2022-04-30] MEDS: Piperacillin/Tazobactam 3.375 GM in 0.9 % Sodium Chloride Mini Bag 100 ML IVPB SCH ×2 (08:22→15:54)
[2022-04-30] MEDS: predniSONE 20 MG TABLET PO SCH (08:22)
[2022-04-30] MEDS ORDERED: Nitroglycerin 0.4 MG TAB.SUBL SL PRN (13:05)
[2022-04-30] MEDS ORDERED: Gabapentin 300 MG CAPSULE PO PRN (13:05)
[2022-04-30] MEDS ORDERED: NON-FORMULARY MEDICATION 1 EACH EACH (Esomeprazole Magnesium [Nexium] 40 MG Capsule.Dr) PO SCH (13:15)
[2022-04-30] MEDS: Metoprolol XL (24 HR) Succ 50 MG TAB.ER.24H PO SCH (14:18)
[2022-05-01 03:14] LABS: Hematocrit 37.7 % (35.3-44.9); Hemoglobin 11.7 g/dL (11.5-15.4); Mean Corpuscular Hemoglobin 27.9 pg (28.0-33.3); Mean Corpuscular Volume 89.8 fL (83.0-100.0); Mean Platelet Volume 10.1 fL (9.4-12.4); Platelet Count 299 K/mcL (140-400); Red Cell Distribution Width 16.2 % (11.5-14.5)
[2022-05-01] MEDS: Piperacillin/Tazobactam 3.375 GM in 0.9 % Sodium Chloride Mini Bag 100 ML IVPB SCH ×2 (03:15→10:09)
[2022-05-01 03:35] LABS: BUN/Creatinine Ratio 26 (6-26); Blood Urea Nitrogen 26 mg/dL (8-23); Calcium 8.7 mg/dL (8.6-10.3); Carbon Dioxide 33 mEq/L (23-29); Chloride 105 mEq/L (98-107); Glucose 107 mg/dL (70-105); Osmolality,Calculated 303 (280-300); Potassium 3.8 mEq/L (3.5-5.1); Sodium 144 mEq/L (136-145); eGFR For African Americans > 60 (> 60); eGFR For Non-African Americans 53 (> 60)
[2022-05-01 06:31] VITALS: BP 149/72; PULSE 67; TEMP 98.4; O2SAT 96
[2022-05-01] MEDS: *HR* Enoxaparin 40 MG/0.4 ML SYRINGE SQ SCH (06:34)
[2022-05-01 08:34] LABS: % Iron Saturation 22 % (15-50); Iron 55 mcg/dL (50-170); Transferrin 180 mg/dL (203-362)
[2022-05-01 08:51] LABS: Ferritin 57 ng/mL (10-120)
[2022-05-01] MEDS: Lactobacillus 1 EACH CAP.SPRINK PO SCH (10:09)
[2022-05-01] MEDS: Furosemide 20 MG/2 ML VIAL IVP SCH (10:10)
[2022-05-01] MEDS: Metoprolol XL (24 HR) Succ 50 MG TAB.ER.24H PO SCH (10:10)
[2022-05-01] MEDS: Multivit/Ca/Min/Fe/FA 1 TAB TABLET PO SCH (10:10)
[2022-05-01] MEDS: predniSONE 20 MG TABLET PO SCH (10:10)
== END 2022-05-01 10:04 | disposition home or self-care (01) | DRG 871 ==
LOC: 4WAOSI 15:51 → EMEROOARM 15:51 → SUATTDRO 21:58 → 4WAOSI 22:20 → SUATTDRO 04-29 09:42 → 2ANU 04-29 12:50
PROVIDERS: ADMIT Internal Medicine; ATTEND Internal Medicine